=== PATIENT | female | born 1945 | race Caucasian/White ===

== ENCOUNTER → 2017-01-31 | Outpatient (CLI) | payer BC ==
[2017-01-31 16:02] LABS: Hemoglobin A1C 6.7 % (4.2-6.1)
== END ==
LOC: LABWHC1 14:52
PROVIDERS: ATTEND Family Medicine
DX: E11.9 Type 2 diabetes mellitus without complications (principal); I10 Essential (primary) hypertension
CPT/HCPCS: 36415; 83036

== ENCOUNTER → 2017-02-11 | Outpatient (CLI) | payer BC ==
--- NOTE | 2017-02-11 15:33 | US ---
EXAMINATION TYPE: US thyroid st tissue head/neck DATE OF EXAM: 02/11/2017 3:06 PM COMPARISON: See PACS thyroid ultrasound October 10, 2015. CLINICAL HISTORY: E04.2 goiter. GLAND SIZE: Right Lobe: 4.6 x 1.6 x 1.9 cm Overall Parenchyma: homogenous Left Lobe: 4.5 x 1.3 x 1.6 cm Overall Parenchyma: homogeneous Isthmus Thickness: 0.2 cm NODULES RIGHT: # of nodules measured on right: 3 1. 1.2 X 0.6 x 1.0 cm anechoic mixed nodule at the upper pole with well-defined margins. This nodu le is wider than tall and shows intranodular vascularity. Prior size: 1.2 x 0.5 x 0.9 cm 2. 1.0 X 0.6 x 0.8 cm hypoechoic solid nodule at the mid pole with well-defined margins. This nodul e is wider than tall and shows intranodular vascularity. Prior size: 1.2 x 0.5 x 0.6 cm 3. 0.7 X 0.4 x 0.5 cm hypoechoic solid nodule at the lower pole with well-defined margins. This nod ule is wider than tall and shows no intranodular vascularity. Prior size: 0.7 x 0.4 x 0.7 cm LEFT: # of nodules measured on left: 2 1. 1.5 X 0.8 x 1.1 cm hypoechoic mixed nodule at the lower pole with well-defined margins . This n odule is wider than tall and shows intranodular vascularity. Prior size: 1.5 x 0.8 x 1.0 cm 2. 0.5 X 0.2 x 0.5 cm anechoic cystic nodule at the upper pole with well-defined margins. This nodu le is wider than tall and shows no intranodular vascularity. Prior size: 0.5 x 0.3 x 0.4 cm ISTHMUS: # of nodules measured in the isthmus: 0 Bilateral neck scanned, no evidence of lymphadenopathy. Thyroid gland remains normal in size with scattered nodules redemonstrated. No new suspicious nodules are clearly seen. IMPRESSION: Findings consistent with multinodular goiter. No new suspicious greater than 1 cm solid or cystic nod ules are identified.
== END | disposition home or self-care (01) ==
LOC: RADUSWWP 14:45
PROVIDERS: ATTEND Family Medicine
DX: E04.2 Nontoxic multinodular goiter (principal)
CPT/HCPCS: 76536

== ENCOUNTER → 2017-08-27 | Outpatient (CLI) | payer BC ==
--- NOTE | 2017-08-27 16:24 | US ---
EXAMINATION TYPE: US thyroid st tissue head/neck DATE OF EXAM: 08/27/2017 COMPARISON: US 2015 CLINICAL HISTORY: E04.2 GOITER. GLAND SIZE: Right Lobe: 4.1 x 2.0 x 1.5 cm Overall Parenchyma: homogenous Left Lobe: 4.9 x 1.7 x 1.2 cm Overall Parenchyma: homogeneous Isthmus Thickness: 0.3 cm NODULES RIGHT: # of nodules measured on right: 3 largest of multiple 1. 1.3 X 1.3 x 0.7 cm hypoechoic mixed nodule at the upper pole with well-defined margins; present with microcalcifications. This nodule is wider than tall and shows intranodular vascularity. Prior size: 1.2 x 0.5 x 0.9 cm 2. 1.1 X 0.7 x 0.7 cm hypoechoic solid nodule at the mid pole with well-defined margins. This nodule is wide as is tall and shows intranodular vascularity. Prior size: 1.1 x 0.6 x 0.8 cm 3. 0.7 X 0.6 x 0.4 cm hypoechoic mixed nodule at the lower pole with well-defined margins; present w ith microcalcifications. This nodule is wider than tall and shows no intranodular vascularity. Prior size: 0.7 x 0.4 x 0.5 cm LEFT: # of nodules measured on left: 2 largest of multiple 1. 1.7 X 1.2 x 0.7 cm hypoechoic mixed nodule at the mid lower pole with well-defined margins; pres ent with microcalcifications. This nodule is wider than tall and shows intranodular vascularity. Few microcalcifications are present within this nodule. Prior size: 1.5 x 0.8 x 1.1 cm 2. 0.5 X 0.5 x 0.2 cm hypoechoic mixed nodule at the upper pole with well-defined margins; present w ith microcalcifications. This nodule is wider than tall and shows no intranodular vascularity. Prior size: 0.5 x 0.2 x 0.5 cm ISTHMUS: # of nodules measured in the isthmus: 0 Bilateral neck scanned, no evidence of lymphadenopathy. IMPRESSION: Findings again consistent with a multinodular goiter. Minimally enlarged partially cystic and partial ly solid left thyroid nodule now measuring up to 1.7 cm. Few microcalcifications are seen within this nodule and therefore percutaneous biopsy could be considered. Surveillance is recommended for the re maining nodules.
== END ==
LOC: RADUSWWP 14:24
PROVIDERS: ATTEND Family Medicine
DX: E04.2 Nontoxic multinodular goiter (principal)
CPT/HCPCS: 76536

== ENCOUNTER → 2017-09-03 | Outpatient (CLI) | payer BC ==
[2017-09-03 10:43] LABS: CH 30.8; CHCM 32.2; HCT 48.9 % (34.0-46.0); HDW 2.32; MCH 29.5 pg (25.0-35.0); MCHC 30.7 g/dL (31.0-37.0); MCV 96.1 fL (80.0-100.0); Mean Platelet Volume 7.6; RBC 5.09 m/uL (3.80-5.40); RDW 14.6 % (11.5-15.5); WBC 6.9 k/uL (3.8-10.6)
[2017-09-03 10:58] LABS: ALT 33 U/L (9-52); AST 21 U/L (14-36); Anion Gap 11 mmol/L; Blood Urea Nitrogen 12 mg/dL (7-17); Calcium 9.8 mg/dL (8.4-10.2); Carbon Dioxide 22 mmol/L (22-30); Chloride 108 mmol/L (98-107); Glucose 178 mg/dL (74-99); Non-African American GFR(MDRD) >60 (>60 ml/min/1.73 sqM); Sodium 141 mmol/L (137-145)
[2017-09-03 11:13] LABS: Hemoglobin A1C 7.1 % (4.2-6.1)
== END | disposition home or self-care (01) ==
LOC: LABWHC1 09:58
PROVIDERS: ATTEND Family Medicine
DX: E11.9 Type 2 diabetes mellitus without complications (principal); E04.2 Nontoxic multinodular goiter; I10 Essential (primary) hypertension
CPT/HCPCS: 36415; 80048; 83036; 84443; 84450; 84460; 85027

== ENCOUNTER → 2018-05-09 | Outpatient (CLI) | payer MEDICARE, OTHER ==
--- NOTE | 2018-05-12 11:49 | MM ---
Reason for exam: screening (asymptomatic). Last mammogram was performed 2 years and 7 months ago. History: Patient is postmenopausal. Family history of breast cancer in grandmother at age 58. Excisional biopsy of the right breast, May 15, 2000. 2 cyst aspirations of the left breast. 2 cyst aspirations of the right breast. Physical Findings: A clinical breast exam by your physician is recommended on an annual basis and results should be correlated with mammographic findings. MG 3D Screening Mammo W/Cad Bilateral CC and MLO view(s) were taken. Prior study comparison: October 10, 2015, bilateral MG screening mammo w CAD. November 24, 2013, bilateral digital screening mammo w/CAD. There are scattered fibroglandular densities. No significant changes when compared with prior studies. ASSESSMENT: Benign, BI-RAD 2 RECOMMENDATION: Routine screening mammogram of both breasts in 1 year.
== END | disposition home or self-care (01) ==
LOC: RADMAMWWP 13:26
PROVIDERS: ATTEND Family Medicine
DX: Z12.31 Encounter for screening mammogram for malignant neoplasm of breast (principal)
CPT/HCPCS: 77063; 77067

== ENCOUNTER → 2018-07-18 | Outpatient (CLI) | payer MEDICARE, OTHER ==
[2018-07-18 16:22] LABS: HCT 42.2 % (34.0-46.0); HGB 13.4 gm/dL (11.4-16.0); MCH 30.6 pg (25.0-35.0); MCHC 31.8 g/dL (31.0-37.0); MCV 96.4 fL (80.0-100.0); Mean Platelet Volume 6.6; Platelet Count 371 k/uL (150-450); RBC 4.38 m/uL (3.80-5.40); RDW 13.8 % (11.5-15.5); WBC 9.2 k/uL (3.8-10.6)
[2018-07-18 16:34] LABS: Calcium 9.6 mg/dL (8.4-10.2); Potassium 4.4 mmol/L (3.5-5.1)
[2018-07-19 04:41] LABS: Hemoglobin A1C 6.9 % (4.0-6.0)
--- NOTE | 2018-07-21 09:58 | USB ---
Reason for exam: clinical finding. History: Patient is postmenopausal. Family history of breast cancer in grandmother at age 58. Excisional biopsy of the right breast, May 15, 2000. 2 cyst aspirations of the left breast. 2 cyst aspirations of the right breast. Indicated problem(s): palpable abnormality in the left breast. Physical Findings: Nurse Summary: 1cm nodule in the left breast at nipple, firm (nurse dw). US Breast LT Left complete breast ultrasound includes all four quadrants, the retroareolar region and axilla. Finding demonstrates a 0.3 x 0.4 x 0.1cm oval, calcification, hyperechoic lesion at 2 o'clock and duct ectasia at the posterior nipple. These results were verbally communicated with the patient and result sheet given to the patient on 07/18/18. ASSESSMENT: Benign, BI-RAD 2 RECOMMENDATION: Return to routine screening mammogram schedule for both breasts. Back on schedule. Manage patient on a clinical basis.
== END | disposition home or self-care (01) ==
LOC: RADUSWWP 14:55
PROVIDERS: ATTEND Family Medicine
DX: N64.59 Other signs and symptoms in breast (principal); E78.5 Hyperlipidemia, unspecified; E11.9 Type 2 diabetes mellitus without complications
CPT/HCPCS: 36415; 80048; 83036; 84450; 84460; 85027

== ENCOUNTER → 2018-10-28 | Outpatient (CLI) | payer MEDICARE, OTHER ==
--- NOTE | 2018-10-28 23:00 | US ---
EXAMINATION TYPE: US thyroid st tissue head/neck DATE OF EXAM: 10/28/2018 COMPARISON: Most recent thyroid ultrasound August 27, 2017 CLINICAL HISTORY: E04.2 Nontoxic multinodular goiter. GLAND SIZE: Right Lobe: 4.5 x 1.5 x 1.9 cm Overall Parenchyma: heterogenous Left Lobe: 4.8 x 1.4 x 1.6 cm Overall Parenchyma: heterogeneous Isthmus Thickness: 0.3 cm NODULES RIGHT: # of nodules measured on right: 3 1. 1.3 x X 1.3 x 0.7 cm hypoechoic cystic nodule at the upper pole with well-defined margins. Thi s nodule is wider than tall and shows no intranodular vascularity. Prior size: 1.3 x 1.3 x 0.7 cm 2. 1.1 X 0.7 x 0.7 cm hypoechoic solid nodule at the mid pole with well-defined margins. This nodul e is wider than tall and shows intranodular vascularity. Prior size: 1.1 x 0.7 x 0.7 cm 3. 0.7 X 0.4 x 0.5 cm isoechoic mixed nodule at the lower pole with well-defined margins. This nodu le is wider than tall and shows no intranodular vascularity. Prior size: 0.7 x 0.6 x 0.4 cm LEFT: # of nodules measured on left: 2 1. 1.7 X 0.8 x1.2 cm hypoechoic mixed nodule at the mid pole with well-defined margins. This nodule is wider than tall and shows intranodular vascularity. Prior size: 1.7 x 0.7 x 1.2 cm 2. 0.5 X 0.2 x 0.4 cm anechoic cystic nodule at the upper pole with well-defined margins . This nod ule is taller than wide and shows no intranodular vascularity. Prior size: 0.5 x 0.2 x 0.5 cm ISTHMUS: # of nodules measured in the isthmus: 0 Bilateral neck scanned, no evidence of lymphadenopathy. Redemonstration of heterogeneous multinodular normal-sized thyroid without new nodules identified IMPRESSION: Overall stable findings, no new suspicious nodules are seen.
== END ==
LOC: RADUSWWP 16:06
PROVIDERS: ATTEND Internal Medicine Endocrinology, Diabetes & Metabolism
DX: E04.2 Nontoxic multinodular goiter (principal)
CPT/HCPCS: 76536

== ENCOUNTER → 2018-12-25 | Outpatient (CLI) | payer MEDICARE, OTHER ==
[2018-12-25 14:02] LABS: HGB 14.5 gm/dL (11.4-16.0); MCH 31.5 pg (25.0-35.0); MCHC 32.2 g/dL (31.0-37.0); MCV 97.9 fL (80.0-100.0); Mean Platelet Volume 6.9; Platelet Count 390 k/uL (150-450); RDW 13.2 % (11.5-15.5); WBC 11.2 k/uL (3.8-10.6)
[2018-12-25 19:54] LABS: Anion Gap 10.3 mmol/L (4.00-12.00); Carbon Dioxide 25.7 mmol/L (21.6-31.8)
[2018-12-25 22:12] LABS: Hemoglobin A1C 6.7 % (4.0-6.0)
== END | disposition home or self-care (01) ==
LOC: LABWHC1 12:51
PROVIDERS: ATTEND Family Medicine
DX: E78.5 Hyperlipidemia, unspecified (principal); E11.9 Type 2 diabetes mellitus without complications; E04.2 Nontoxic multinodular goiter
CPT/HCPCS: 36415; 80048; 83036; 84439; 84443; 84450; 84460; 85027

== ENCOUNTER → 2019-01-13 | Outpatient (CLI) | payer MEDICARE, OTHER ==
--- NOTE | 2019-01-13 11:18 | US ---
EXAMINATION TYPE: US duplex aorta DATE OF EXAM: 01/13/2019 COMPARISON: NONE CLINICAL HISTORY: 73-year-old female Z82.49 family history of ischemic heart disease. TECHNIQUE: Multiple sonographic images of the abdominal aorta are obtained. FINDINGS: EXAM MEASUREMENTS: Abdominal Aorta: Proximal: 1.5cm Mid: 1.5cm Distal: 1.4cm Bifurcation: Right: 1.0cm Left: 1.1cm Atherosclerotic changes throughout. IMPRESSION: No sonographic evidence for AAA.
== END ==
LOC: RADUSWWP 08:17
PROVIDERS: ATTEND Family Medicine
DX: Z13.6 Encounter for screening for cardiovascular disorders (principal); Z82.49 Family history of ischemic heart disease and other diseases of the circulatory system
CPT/HCPCS: 93979

== ENCOUNTER → 2019-03-26 | Outpatient (CLI) | payer MEDICARE, OTHER ==
[2019-03-26 16:23] LABS: Basophils # (A) 0.1 k/uL (0-0.2); Basophils % (A) 1 %; Eosinophils # (A) 0.2 k/uL (0-0.7); Eosinophils % (A) 2 %; HCT 44.6 % (34.0-46.0); HGB 14.2 gm/dL (11.4-16.0); Lymphocytes % (A) 31 %; MCH 30.6 pg (25.0-35.0); MCHC 31.8 g/dL (31.0-37.0); MCV 96.1 fL (80.0-100.0); Mean Platelet Volume 6.8; Monocytes # (A) 0.5 k/uL (0-1.0); Monocytes % (A) 5 %; Neutrophils # (A) 5.6 k/uL (1.3-7.7); Neutrophils % (A) 58 %; Platelet Count 418 k/uL (150-450); RBC 4.64 m/uL (3.80-5.40); RDW 12.8 % (11.5-15.5); WBC 9.6 k/uL (3.8-10.6)
[2019-03-26 23:31] LABS: Anion Gap 7.9 mmol/L (4.00-12.00); Calcium 9.8 mg/dL (8.7-10.3); Carbon Dioxide 25.1 mmol/L (21.6-31.8); Potassium 4.4 mmol/L (3.5-5.5)
[2019-03-27 02:31] LABS: Hemoglobin A1C 6.8 % (4.0-6.0)
== END | disposition home or self-care (01) ==
LOC: LABWHC1 15:29
PROVIDERS: ATTEND Family Medicine
DX: E78.5 Hyperlipidemia, unspecified (principal); E11.9 Type 2 diabetes mellitus without complications
CPT/HCPCS: 36415; 80048; 83036; 84450; 84460; 85025

== ENCOUNTER → 2019-04-03 | Outpatient (CLI) | payer MEDICARE, OTHER ==
[2019-04-03 23:51] LABS: Anion Gap 8.1 mmol/L (4.00-12.00); Calcium 9.4 mg/dL (8.7-10.3); Carbon Dioxide 23.9 mmol/L (21.6-31.8); Potassium 4.5 mmol/L (3.5-5.5)
== END | disposition home or self-care (01) ==
LOC: LABWHC1 15:41
PROVIDERS: ATTEND Family Medicine
DX: E78.5 Hyperlipidemia, unspecified (principal); R94.4 Abnormal results of kidney function studies; E11.9 Type 2 diabetes mellitus without complications
CPT/HCPCS: 36415; 80048

== ENCOUNTER → 2019-04-10 | Outpatient (CLI) | payer MEDICARE, OTHER ==
--- NOTE | 2019-04-10 13:23 | US ---
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 Stenosis EXAM MEASUREMENTS: RIGHT: Peak Systolic Velocity (PSV) cm/sec ----- Right CCA: 54.6 ----- Right ICA: 95.3 ----- Right ECA: 91.4 ICA/CCA ratio: 1.7 RIGHT: End Diastole cm/sec ----- Right CCA: 18.0 ----- Right ICA: 34.4 ----- Right ECA: 22.8 LEFT: Peak Systolic Velocity (PSV) cm/sec ----- Left CCA: 78.2 ----- Left ICA: 89.7 ----- Left ECA: 82.0 ICA/CCA ratio: 1.1 LEFT: End Diastole cm/sec ----- Left CCA: 21.5 ----- Left ICA: 30.3 ----- Left ECA: 14.9 VERTEBRALS (direction of flow): Right Vertebral: Antegrade Left Vertebral: Antegrade Rhythm: Normal Keith scale images demonstrate mild peripheral plaque at bilateral carotid bulbs but the velocity paula urements and ratios in the visualized portion of both internal carotid arteries remain within normal limits. IMPRESSION: No hemodynamically significant stenosis is seen in either internal carotid artery. Criteria for Assigning % of Stenosis / Diameter reduction (Estimation based on the indirect measurements of the internal carotid artery velocities (ICA PSV). 1. Normal (no stenosis)=ICA PSV < 125 cm/s: ratio < 2.0: ICA EDV<40 cm/s. 2. Less than 50% stenosis=ICA PSV < 125 cm/s: ratio < 2.0: ICA EDV<40 cm/s. 3. 50 to 69% stenosis=ICA PSV of 125 to 230 cm/s: ration 2.0 ? 4.0: ICA EDV 40-100 cm/s. 4. Greater than 70% stenosis to near occlusion= ICA PSV > 230 cm/s: ratio > 4.0: ICA EDV > 100 cm/s. 5. Near occlusion= ICA PSV velocities may be low or undetectable: variable ratio and ICA EDV. 6. Total occlusion=unable to detect flow.
== END | disposition home or self-care (01) ==
LOC: RADUSWWP 12:00
PROVIDERS: ATTEND Family Medicine
DX: I65.23 Occlusion and stenosis of bilateral carotid arteries (principal); M79.662 Pain in left lower leg
CPT/HCPCS: 93880; 93922

== ENCOUNTER → 2019-09-29 | Outpatient (CLI) | payer MEDICARE, OTHER ==
[2019-09-29 13:48] LABS: Basophils # (A) 0.1 k/uL (0-0.2); Basophils % (A) 1 %; Eosinophils # (A) 0.1 k/uL (0-0.7); Eosinophils % (A) 1 %; HCT 39.6 % (34.0-46.0); HGB 12.4 gm/dL (11.4-16.0); Hypochromasia Slight; Lymphocytes # (A) 2.7 k/uL (1.0-4.8); Lymphocytes % (A) 28 %; MCH 28.5 pg (25.0-35.0); MCHC 31.3 g/dL (31.0-37.0); MCV 91.2 fL (80.0-100.0); Mean Platelet Volume 5.8; Monocytes # (A) 0.5 k/uL (0-1.0); Monocytes % (A) 6 %; Neutrophils # (A) 5.8 k/uL (1.3-7.7); Neutrophils % (A) 61 %; Platelet Count 516 k/uL (150-450); RBC 4.34 m/uL (3.80-5.40); RDW 13.2 % (11.5-15.5); WBC 9.7 k/uL (3.8-10.6)
[2019-09-29 18:30] LABS: Anion Gap 8.3 mmol/L (4.00-12.00); BUN/Creat Ratio 16.67 Ratio (12.00-20.00); Calcium 9.7 mg/dL (8.7-10.3); Carbon Dioxide 25.7 mmol/L (21.6-31.8); Non-African American GFR(CKD) 63.9 (60.0-200.0); Potassium 4.7 mmol/L (3.5-5.5)
[2019-09-29 20:30] LABS: Hemoglobin A1C 7.1 % (4.0-6.0)
== END | disposition home or self-care (01) ==
LOC: LABWHC1 12:48
PROVIDERS: ATTEND Family Medicine
DX: E11.9 Type 2 diabetes mellitus without complications (principal); E78.5 Hyperlipidemia, unspecified
CPT/HCPCS: 36415; 80048; 83036; 84450; 84460; 85025

== ENCOUNTER → 2019-10-12 | Outpatient (CLI) | payer MEDICARE, OTHER ==
[2019-10-12 13:30] LABS: Basophils # (A) 0.1 k/uL (0-0.2); Basophils % (A) 1 %; Eosinophils # (A) 0.2 k/uL (0-0.7); Eosinophils % (A) 2 %; HCT 39.7 % (34.0-46.0); HGB 12.7 gm/dL (11.4-16.0); Hypochromasia Slight; Lymphocytes # (A) 2.2 k/uL (1.0-4.8); Lymphocytes % (A) 24 %; MCH 28.7 pg (25.0-35.0); MCHC 32.1 g/dL (31.0-37.0); MCV 89.4 fL (80.0-100.0); Mean Platelet Volume 5.8; Monocytes # (A) 0.4 k/uL (0-1.0); Monocytes % (A) 4 %; Neutrophils # (A) 5.9 k/uL (1.3-7.7); Neutrophils % (A) 65 %; Platelet Count 503 k/uL (150-450); RBC 4.44 m/uL (3.80-5.40); RDW 13.4 % (11.5-15.5)
== END ==
LOC: LABWHC1 12:19
PROVIDERS: ATTEND Family Medicine
DX: E78.5 Hyperlipidemia, unspecified (principal)
CPT/HCPCS: 36415; 85025

== ENCOUNTER → 2019-10-29 | Outpatient (CLI) | payer MEDICARE, OTHER ==
[2019-10-29 17:29] LABS: Basophils # (A) 0.1 k/uL (0-0.2); Basophils % (A) 1 %; Eosinophils # (A) 0.2 k/uL (0-0.7); Eosinophils % (A) 2 %; HCT 39.2 % (34.0-46.0); HGB 12.1 gm/dL (11.4-16.0); Hypochromasia Moderate; Lymphocytes # (A) 3.5 k/uL (1.0-4.8); Lymphocytes % (A) 32 %; MCHC 30.9 g/dL (31.0-37.0); MCV 90.8 fL (80.0-100.0); Mean Platelet Volume 8.1; Monocytes # (A) 0.7 k/uL (0-1.0); Monocytes % (A) 6 %; Neutrophils # (A) 6.2 k/uL (1.3-7.7); Neutrophils % (A) 56 %; Platelet Count 467 k/uL (150-450); RBC 4.31 m/uL (3.80-5.40); RDW 13.6 % (11.5-15.5)
== END | disposition home or self-care (01) ==
LOC: LABWHC1 15:21
PROVIDERS: ATTEND Family Medicine
DX: E78.5 Hyperlipidemia, unspecified (principal)
CPT/HCPCS: 36415; 85025

== ENCOUNTER → 2020-01-21 | Outpatient (CLI) | payer MEDICARE, OTHER ==
[2020-01-21 12:51] LABS: HGB 12.4 gm/dL (11.4-16.0); Hypochromasia Moderate; MCH 26.7 pg (25.0-35.0); MCV 86.2 fL (80.0-100.0); Mean Platelet Volume 7.6; Platelet Count 543 k/uL (150-450); RBC 4.64 m/uL (3.80-5.40); RDW 14.8 % (11.5-15.5); WBC 8.9 k/uL (3.8-10.6)
[2020-01-21 18:59] LABS: African American GFR (CKD) 84.8 (60.0-200.0); Albumin 4.4 g/dL (3.80-4.90); Albumin/Globulin Ratio 2.2 (1.60-3.17); Anion Gap 6.6 mmol/L (4.00-12.00); BUN/Creat Ratio 21.25 Ratio (12.00-20.00); Calcium 9.5 mg/dL (8.7-10.3); Carbon Dioxide 24.4 mmol/L (21.6-31.8); Chol/HDL Ratio 2.39; Non-African American GFR(CKD) 73.1 (60.0-200.0); Potassium 4.7 mmol/L (3.5-5.5); Total Bilirubin 0.4 mg/dL (0.2-1.2); Total Protein 6.4 g/dL (6.2-8.2)
[2020-01-21 20:03] LABS: Hemoglobin A1C 7.3 % (4.0-6.0)
[2020-01-22 04:23] LABS: Urine Creatinine 265.9 mg/dL
== END ==
LOC: LABWHC1 11:00
PROVIDERS: ATTEND Family Medicine
DX: Z00.01 Encounter for general adult medical examination with abnormal findings (principal); E04.2 Nontoxic multinodular goiter; E11.9 Type 2 diabetes mellitus without complications
CPT/HCPCS: 36415; 80053; 80061; 82043; 82570; 83036; 84439; 84443; 85027

== ENCOUNTER → 2020-08-22 | Outpatient (CLI) | payer MEDICARE, OTHER ==
--- NOTE | 2020-08-22 14:18 | CT ---
EXAMINATION TYPE: CT lumbar spine wo con DATE OF EXAM: 08/22/2020 1:54 PM COMPARISON: CT scan 11/01/2011 HISTORY: Low back pain CT DLP: 451.2 mGycm Automated exposure control for dose reduction was used. Unenhanced CT of the lumbar spine was performed. Bone and soft tissue window settings are submitted as well as coronal and sagittal reconstructions. Subsegmental changes involving the right lung base n oted. Surgical clips in the gallbladder fossa. Atherosclerotic change aorta. Nonobstructing 2 mm left renal calculus. Hypodensity within the right kidney is too small to characterize. Changes of COPD wi th bibasilar atelectasis suspected. Hypodensities within the dome of the liver with an adjacent calci fication measures 12 Hounsfield units correlate for hepatic cyst. L1-L2: Moderate degenerative disc disease L-1-L2. Circumferential disc bulging with slight retrolisth esis of 2 mm of L1 relative to L2. Neural foramina remain patent. L2-L3: No disc herniation or canal stenosis. Mild circumferential disc bulging. No foraminal encroach ment. L3-L4: No disc herniation. Mild circumferential disc bulging. No foraminal encroachment. L4-L5: Marked facet arthropathy. Circumferential disc bulging and mild effacement of thecal sac and m ild bilateral foraminal encroachment. Grade 1 anterolisthesis. L5-S1: Postsurgical changes artifact obscures the spinal canal. No obvious disc herniation. IMPRESSION:. 1. Limited exam due to artifact at the postsurgical level L5-S1. There is mild soft tissue fullness o n axial image 66 within the left lateral recess which could be correlated with MRI given the limitati on of today's exam to determine if this is related to the nerve root or possibly disc material.. 2. Multilevel degenerative disc disease and hypertrophic changes with facet arthropathy particularly noted at L4-5 and a grade 1 anterolisthesis. There is disc bulging at L4-L5 with mild effacement of t hecal sac 3. Diffuse disc bulging L1-L2 with retrolisthesis of L1 relative to L2. 4. Disc bulging L2-3 and L3-4 with mild effacement of thecal sac. 5. Nonobstructing punctate left renal calculus.
== END | disposition home or self-care (01) ==
LOC: RADCTMAIN 13:29
PROVIDERS: ATTEND Orthopaedic Surgery Orthopaedic Surgery of the Spine
DX: M51.16 Intervertebral disc disorders with radiculopathy, lumbar region (principal); M43.16 Spondylolisthesis, lumbar region; M47.26 Other spondylosis with radiculopathy, lumbar region; Z98.1 Arthrodesis status
CPT/HCPCS: 72131

== ENCOUNTER → 2021-03-10 | Outpatient (CLI) | payer MEDICARE, OTHER ==
[2021-03-10 13:47] LABS: Appearance,Urine Clear (Clear); Bacteria,Urine Occasional /hpf; Bilirubin,Urine Negative (Negative); Blood,Urine Trace (Negative); Color,Urine Yellow; Glucose,Urine (UA) 2+ (Negative); Hyaline Casts,Urine 8 /lpf (0-2); Ketones,Urine Trace (Negative); Leukocyte Esterase,Urine Large (Negative); Mucus,Urine Many /hpf; Nitrite,Urine Negative (Negative); Protein,Urine 2+ (Negative); RBC,Urine 6 /hpf (0-5); Specific Gravity,Urine 1.032 (1.001-1.035); Squamous Epithelial Cell,Urine 6 /hpf (0-4); WBC,Urine 30 /hpf (0-5)
[2021-03-11 00:32] LABS: Hemoglobin A1C 7.2 % (4.0-6.0)
[2021-03-11 03:24] LABS: HCT 46.6 % (37.2-46.3); HGB 14.7 g/dL (12.0-15.0); MCH 30.6 pg (27.0-32.0); MCHC 31.5 g/dL (32.0-37.0); MCV 97.1 fL (80.0-97.0); Mean Platelet Volume 10.2 fL (9.5-12.2); Platelet Count 439 X 10*3/uL (140-440); RDW 13.1 % (11.5-14.5); WBC 9.25 X 10*3/uL (4.50-10.00)
[2021-03-11 04:20] LABS: African American GFR (CKD) 98.9 (60.0-200.0); Albumin 4.8 g/dL (3.80-4.90); Albumin/Globulin Ratio 2.4 (1.60-3.17); Anion Gap 8.5 mmol/L (4.00-12.00); BUN/Creat Ratio 18.57 Ratio (12.00-20.00); Calcium 10.1 mg/dL (8.7-10.3); Carbon Dioxide 24.5 mmol/L (21.6-31.8); Chol/HDL Ratio 3.04; LDL Cholesterol,Calculated 68.8 mg/dL (0.0-131.0); Non-African American GFR(CKD) 85.4 (60.0-200.0); Potassium 5.3 mmol/L (3.5-5.5); Total Bilirubin 0.4 mg/dL (0.2-1.2); Total Protein 6.8 g/dL (6.2-8.2); VLDL Calculation 29.2 mg/dL (5.00-40.00)
[2021-03-11 05:50] LABS: Urine Creatinine 276.8 mg/dL
== END | disposition home or self-care (01) ==
LOC: LABWHC1 12:43
PROVIDERS: ATTEND Family Medicine
DX: Z00.01 Encounter for general adult medical examination with abnormal findings (principal); E11.9 Type 2 diabetes mellitus without complications
CPT/HCPCS: 36415; 80053; 80061; 81001; 82043; 82570; 83036; 84443; 85027

== ENCOUNTER → 2021-08-25 | Outpatient (CLI) | payer MEDICARE, OTHER ==
[2021-08-25 15:33] LABS: Carbon Dioxide 27 mmol/L (22-30)
[2021-08-25 15:36] LABS: African American GFR (CKD) >90 (>60 ml/min/1.73 sqM); Anion Gap 10 mmol/L; Blood Urea Nitrogen 12 mg/dL (7-17); Calcium 10.1 mg/dL (8.4-10.2); Chloride 101 mmol/L (98-107); Glucose 177 mg/dL (74-99); Non-African American GFR(CKD) 87 (>60 ml/min/1.73 sqM); Potassium 4.2 mmol/L (3.5-5.1); Sodium 138 mmol/L (137-145)
--- NOTE | 2021-08-25 16:23 | CT ---
EXAMINATION TYPE: CT chest w con DATE OF EXAM: 08/25/2021 COMPARISON: None HISTORY: Abnormal CXR. lung nodule CT DLP: 472 mGycm, Automated exposure control for dose reduction was used. CONTRAST: Performed injected with 100 mL of Isovue 300. TECHNIQUE: Axial images were obtained at 5 mm thick sections. Reconstructed images are reviewed on [facility] computer in the coronal plane. FINDINGS: Portion of the thyroid visualized is normal. There is a spiculated mass at the left anterior medial apex measuring 4.1 cm in diameter. This extend s to the aortopulmonic window level and left hilum. Note is made of enlarged lymphadenopathy within t pretracheal space measuring 2.0 cm. Some right hilar adenopathy measuring 1.2 cm is present. Small amount of pleural thickening or density may extend to the anterior left mid lung measuring 1.7 cm. S eries 3 image 32. Edematous changes are present Multiple nodules are present scattered to the bilateral lungs. The largest within the azygos esophage al recess measuring 1.0 cm. A posterior lateral right lung base nodules 1.0 cm. There are scattered s maller nodules bilaterally. The ascending aorta diameter at the level of the main pulmonary artery is 3.6 cm. The main pulmonary artery diameter at the bifurcation is 2.[address] sections are obtained through the upper abdomen. Appears to be some biliary dilatation wit hin the extrahepatic biliary ducts. Hepatic cysts may be present near the ligamentum teres. Vascular calcifications within the abdominal aorta. IMPRESSIONS: 1. Medial left apical mediastinal mass extending to the left hilum. Enlarged lymphadenopathy is prese nt within the mediastinum. Multiple bilateral pulmonary nodules are present. Findings are suspicious for neoplasm with metastatic disease. PET/CT recommended for additional workup.
== END | disposition home or self-care (01) ==
LOC: RADCTMAIN 14:47
PROVIDERS: ATTEND Family Medicine
DX: R59.1 Generalized enlarged lymph nodes (principal); R94.4 Abnormal results of kidney function studies; R91.8 Other nonspecific abnormal finding of lung field
CPT/HCPCS: 80048; 71260; 36415; Q9967

== ENCOUNTER → 2021-09-08 | Outpatient (CLI) | payer MEDICARE, OTHER | END | disposition home or self-care (01) | LOC: RADPETMAIN 11:19 | PROVIDERS: ATTEND Family Medicine | DX: Z53.9 Procedure and treatment not carried out, unspecified reason (principal) ==

== ENCOUNTER 2021-09-19 13:07 | Day surgery (SDC) | payer MEDICARE, OTHER ==
[2021-09-15 15:38] VITALS: BMI 19.9
[~2021-09-19 13:07] MED LIST: ALBUTEROL NEB (CONC) 2.5 MG/0.5 ML INHALATION ONE; LACTATED RINGERS 1,000 ML IV SCH; LIDOCAINE 2% (PF) 20 MG/ML 5 ML VIAL INHALATION ONE; LIDOCAINE VISCOUS 300 MG/15 ML CUP MUCOUS MEM ONE
[2021-09-19 13:51] LABS: Glucose,Whole Blood 165 mg/dL (75-99)
[2021-09-19] MEDS ORDERED: ROCURONIUM 10 MG/ML (5 ML VIAL) IV ONE (14:23)
[2021-09-19] MEDS ORDERED: PROPOFOL 10 MG/ML 20 ML VIAL IV ONE (14:23)
[2021-09-19] MEDS ORDERED: fentaNYL (PF) 50 MCG/ML 2 ML AMP ONE (14:23)
[2021-09-19] MEDS ORDERED: ONDANSETRON 4 MG/2 ML VIAL ONE (14:23)
[2021-09-19] MEDS ORDERED: LABETALOL 5 MG/ML VIAL MDV ONE (14:23)
[2021-09-19] MEDS ORDERED: diphenhydrAMINE 50 MG/ML 1 ML VIAL ONE (14:23)
[2021-09-19] MEDS ORDERED: LIDOCAINE 1% INJ 10MG/ML (20 ML MDV) ONE (14:23)
[2021-09-19] MEDS ORDERED: MIDAZOLAM 2 MG/2 ML VIAL ONE (14:23)
--- NOTE | 2021-09-19 15:26 | P.PCN ---
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 The procedure was done under general anesthesia. Note that the patient a mediastinal lymphadenopathy, left hilar mass, left upper lobe mass with a mediastinal extension and the patient was suffering from chronic hoarseness related to vocal cord paralysis, unilateral involving the left side. The procedure was done to establish final tissue diagnosis This procedure was done under general anesthesia. Anesthetic agents was given by the anesthesia team at the bedside and the patient was intubated by anesthesia with a #8 orotracheal tube. Following that, the flexible bronchoscope was introduced and orotracheal tube and an airway inspection was done. The Dickson the distal trachea was within normal limits. A summation the right side including the right mainstem bronchus, right upper lobe bronchus, bronchus intermedius and right lower lobe bronchus and the various 10 segments of the right lung was visualized. There was some limited respiratory secretions and the secretions were suctioned out without any major difficulties. The bronchoscope was then moved to the left side and left mainstem bronchus was patent. Left lower lobe bronchus patent and the various segments of the left lower lobe were also within normal limits. bronchoscope was then moved to the left upper lobe. The lingular segment was stable involving the anterior and posterior segments. At the level of the apical posterior and anterior segment, the orifice of the abdomen was occluded by extrinsic compression and endobronchial tumor extending from the mediastinum. The apical posterior segment was very much occluded and there was complete occlusion of airway orifice. The bronchial mucosa was erythematous. Friable irregular surface of the tumor was visualized and under direct visualization, the bronchial biopsies of the left upper lobe apical mass was done. Multiple biopsies were obtained. Following that, endobronchial brushings of the left upper lobe mass was done. After that, I performed a lavage of the left upper lobe without a total of 100 the fluid was infused in 50s was suctioned back without any major difficulties. There are several slightly bloody. Following that, the endobronchial ultrasound was introduced and mediastinal lymph nodes were inspected. Inspection of the mediastinal lymph nodes revealed a station 4R lymph node measuring 23 x 20 mm in size. Station 7 lymph node measuring 7.8 cm in size. 10 R lymph node was too small to measure. 11 are as and 11 RI lymph nodes were not identified. Examination of the 4 L lymph node and 10 lymph nodes were also small and there were less than 5 mm. At this point, under direct visualization using the endobronchial ultrasound, transbronchial needle aspirate of the station 4R lymph node was done. A total of 4 passes were obtained using a 22-gauge histology needle. Adequacy of the symptoms were confirmed by pathology bedside. No endobronchial bleeding was encountered. Regular suctioning was done. Bronchoscope was removed and the patient was extubated and following that the patient was transferred recovery in stable condition.
[2021-09-19 15:53] VITALS: RESP 16; TEMP 98
--- NOTE | 2021-09-19 16:04 | XR ---
EXAMINATION TYPE: XR chest 1V portable DATE OF EXAM: 09/19/2021 COMPARISON: Chest x-ray 04/01/[address] 08/25/2021 HISTORY: Status post bronchoscopy TECHNIQUE: Single frontal view of the chest is obtained. FINDINGS: The mass in the left hilar region, abnormal attenuation in the left upper lobe is noted as on CT. There is no evident pneumothorax. Cardiac mediastinal silhouette is stable accounting for dif ferences in technique. There are overlying artifacts. IMPRESSION: No evident complication status post bronchoscopy.
[2021-09-19 16:45] VITALS: BP 147/76; PULSE 72
== END 2021-09-19 16:55 | disposition home or self-care (01) ==
LOC: ORWHC2ENDO 13:07
PROVIDERS: ATTEND Internal Medicine Critical Care Medicine
DX: J38.01 Paralysis of vocal cords and larynx, unilateral (principal); E11.9 Type 2 diabetes mellitus without complications; E78.5 Hyperlipidemia, unspecified; F41.9 Anxiety disorder, unspecified; I10 Essential (primary) hypertension; K21.9 Gastro-esophageal reflux disease without esophagitis; I73.00 Raynaud's syndrome without gangrene; Z80.1 Family history of malignant neoplasm of trachea, bronchus and lung; Z82.49 Family history of ischemic heart disease and other diseases of the circulatory system; Z87.891 Personal history of nicotine dependence; Z98.891 History of uterine scar from previous surgery; Z90.49 Acquired absence of other specified parts of digestive tract; Z87.442 Personal history of urinary calculi; Z98.890 Other specified postprocedural states; Z79.84 Long term (current) use of oral hypoglycemic drugs; Z79.891 Long term (current) use of opiate analgesic; Z79.899 Other long term (current) drug therapy; Z88.5 Allergy status to narcotic agent; Z91.09 Other allergy status, other than to drugs and biological substances
CPT/HCPCS: 88104; 88108; 88305; 88173; 88342; 88341; 71045; 31625; 31623; 31624; 31652; J2250; J1200; J2405; J2001; J3010; J2704

== ENCOUNTER → 2021-11-06 | Outpatient (CLI) | payer MEDICARE, OTHER ==
[2021-11-06 16:09] LABS: Basophils # (A) 0.1 k/uL (0-0.2); Basophils % (A) 1 %; Eosinophils # (A) 0.3 k/uL (0-0.7); Eosinophils % (A) 2 %; HCT 48.9 % (34.0-46.0); HGB 15.5 gm/dL (11.4-16.0); Lymphocytes # (A) 2.7 k/uL (1.0-4.8); Lymphocytes % (A) 25 %; MCH 29.8 pg (25.0-35.0); MCHC 31.6 g/dL (31.0-37.0); MCV 94.2 fL (80.0-100.0); Mean Platelet Volume 7.3; Monocytes # (A) 0.6 k/uL (0-1.0); Monocytes % (A) 6 %; Neutrophils # (A) 6.6 k/uL (1.3-7.7); Neutrophils % (A) 63 %; Platelet Count 588 k/uL (150-450); RDW 13.1 % (11.5-15.5); WBC 10.5 k/uL (3.8-10.6)
[2021-11-06 16:44] LABS: ALT 14 U/L (4-34); AST 22 U/L (14-36); African American GFR (CKD) >90 (>60 ml/min/1.73 sqM); Albumin 4.5 g/dL (3.5-5.0); Alkaline Phosphatase 84 U/L (38-126); Anion Gap 11 mmol/L; Blood Urea Nitrogen 19 mg/dL (7-17); Calcium 10.3 mg/dL (8.4-10.2); Carbon Dioxide 26 mmol/L (22-30); Chloride 100 mmol/L (98-107); Glucose 258 mg/dL (74-99); Non-African American GFR(CKD) 88 (>60 ml/min/1.73 sqM); Potassium 4.5 mmol/L (3.5-5.1); Sodium 137 mmol/L (137-145); Total Bilirubin 0.3 mg/dL (0.2-1.3); Total Protein 7.7 g/dL (6.3-8.2)
[2021-11-06 16:48] LABS: T4, Free (Free Thyroxine) 1.32 ng/dL (0.78-2.19)
--- NOTE | 2021-11-07 03:37 | MR ---
EXAMINATION TYPE: MR brain wo/w con DATE OF EXAM: 11/06/2021 COMPARISON: 06/15/2011 HISTORY: Lung cancer. CONTRAST: Standard multiplanar, multisequence MRI departmental protocol images were obtained without contrast a nd with 6 mL intravenous Gadavist gadolinium contrast. There is some cerebral cortical atrophy. There is no mass effect nor midline shift. There is moderate patchy increased signal in the periventricular white matter in both cerebral hemispheres. There is c oalescent areas that measure up to 2 cm. There is also increased signal bilaterally in the andres that measures 8 mm. Cerebellum is intact. Sella turcica is intact. There is some thinning of the corpus ca llosum. The contrast images show normal enhancement of the venous sinuses. There is no pathologic intracrania l enhancement. IMPRESSION: Cerebral atrophy. Extensive white matter signal changes probably related to microvascular ischemia th at has progressed compared to old exam. Demyelinating disease not excluded. There are some chronic fr ontal and ethmoid sinusitis that appears similar to old exam. No evidence of intracranial metastatic disease. There is progression of cerebral atrophy compared to old exam.
== END | disposition home or self-care (01) ==
LOC: RADMRIMAIN 15:18
PROVIDERS: ATTEND Internal Medicine Hematology & Oncology
DX: C34.12 Malignant neoplasm of upper lobe, left bronchus or lung (principal)
CPT/HCPCS: 84439; 84481; 80053; 82533; 84443; 85025; 70553; A9585

== ENCOUNTER 2021-12-06 08:40 | Day surgery (SDC) | payer MEDICARE, OTHER ==
[2021-11-29 14:24] VITALS: BMI 20.5
[~2021-12-06 08:40] MED LIST changes: -ALBUTEROL NEB (CONC) 2.5 MG/0.5 ML INHALATION ONE; +DEXAMETHASONE SOD PHOSPHATE 4 MG/ML 1 ML VIAL IV PRN; +FAMOTIDINE 20 MG/2 ML VIAL IV PRN; -LIDOCAINE 2% (PF) 20 MG/ML 5 ML VIAL INHALATION ONE; -LIDOCAINE VISCOUS 300 MG/15 ML CUP MUCOUS MEM ONE; +ONDANSETRON 4 MG/2 ML VIAL IVP PRN
[2021-12-06 09:37] LABS: Glucose,Whole Blood 252 mg/dL (75-99)
[2021-12-06] MEDS ORDERED: INSULIN ASPART (NovoLOG) 100 UNIT/ML VIAL SQ ONE (09:52)
[2021-12-06] MEDS ORDERED: IPRATROPIUM-ALBUTEROL 3 ML NEB INHALATION STA (10:00)
[2021-12-06] MEDS ORDERED: NALOXONE 0.4 MG/ML 1 ML VIAL ONE (10:59)
[2021-12-06] MEDS ORDERED: diphenhydrAMINE 50 MG/ML 1 ML VIAL ONE (10:59)
[2021-12-06] MEDS ORDERED: KETAMINE 10 MG/ML 20 ML VIAL ONE (10:59)
[2021-12-06] MEDS ORDERED: fentaNYL (PF) 50 MCG/ML 2 ML AMP ONE (10:59)
[2021-12-06] MEDS ORDERED: MIDAZOLAM 2 MG/2 ML VIAL ONE (10:59)
[2021-12-06] MEDS ORDERED: DEXAMETHASONE SOD PHOSPHATE 10 MG/ML 1 ML VIAL ONE (10:59)
[2021-12-06] MEDS ORDERED: LIDOCAINE 1% INJ 10MG/ML (20 ML MDV) ONE (10:59)
[2021-12-06] MEDS ORDERED: FLUMAZENIL 0.1 MG/ML 5 ML VIAL IVP ONE (10:59)
[2021-12-06] MEDS ORDERED: PROPOFOL 10 MG/ML 20 ML VIAL IV ONE (10:59)
[2021-12-06] MEDS ORDERED: LIDOCAINE 1%-EPI 1:100,000 20 ML VIAL SQ ONE (11:22)
[2021-12-06] MEDS ORDERED: BACITRACIN ZINC 500 UNIT/GM OINT 28.4 GM TUBE TOPICAL ONE (12:46)
--- NOTE | 2021-12-06 12:59 | P.OP ---
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 Operative Findings: Left vocal Cord paralysis, laryngeal cartilage externally had normal anatomy Description of Procedure: The patient was brought in the operative suite and placed in a supine position. Patient underwent induction of IV sedation appropriate monitors were placed by the hand i thermal cutter. Patient was prepped and draped in usual aseptic fashion. 1% lidocaine with [id number] epinephrine was infused subcutaneously at the proposed left medial neck incision site. This was left for 7 minutes vasoconstrictive effect. A transverse left medial cervical incision was made 5 mm below the inferior aspect of the thyroid cartilage and carried sharply through skin and subcutaneous tissue and platysma layers. Strap muscles were identified and were able to be reflected laterally off of the underlying deep strap muscles. The thyroid hyoid muscle was detached from the inferior attachment and good hemostasis was noted. The thyroid a left was well visualized. The primary thyroplasty set was then utilized to identify the ziegler point and the cartilaginous window was then marked based on the ziegler point. The cartilaginous window was then made and the underlying perichondrium was scored and incised sharply and then dissected from the medial aspect of the thyroid cartilage. At this point the sedation was decreased and she was given 50 mg of IV lidocaine. The patient remains sedated but was not cooperative with counting numbers with thyroplasty implant sizers as she was very disoriented. Over 30 minutes was allowed to elapse to allow the patient to try to vocalize with the various size thyroplasty sizers but she still could not do this and therefore it was elected to place a #9 female Mcdonald thyroplasty implant. With the minimal vocalization that she was able to obtain there was no strain no stridor and improved voice. The wound was then copiously irrigated with sterile normal saline and the strap muscles were reapproximated midline with 3-0 Vicryl suture. A #7 round suction drain was placed in a separate stab incision. The platysma and deep subcutaneous layers were closed with inverted interrupted 4-0 Vicryl suture skin closed with running locking 4-0 Prolene suture. Drain was sutured to the skin with 3-0 silk suture and the wound was dressed with bacitracin ointment and sterile dressing. Flexible laryngoscopy was not able to be performed due to the patient's inability to cooperate with this. She had no stridor and good airway. The patient was allowed to continue to emerge from anesthesia having tolerated procedure well and was transferred to the postop recovery area in satisfactory
[2021-12-06 13:16] VITALS: TEMP 97.5
[2021-12-06] MEDS: fentaNYL (PF) 50 MCG/ML 2 ML AMP IV PRN ×2 (13:31→13:51)
[2021-12-06 14:28] VITALS: RESP 20
[2021-12-06] MEDS ORDERED: hydrALAZINE HCL 20 MG/ML 1 ML VIAL ONE (14:57)
[2021-12-06] MEDS ORDERED: hydrALAZINE HCL 20 MG/ML 1 ML VIAL IV ONE (15:00)
[2021-12-06 16:00] VITALS: BP 186/80; PULSE 90
== END 2021-12-06 15:45 | disposition home or self-care (01) ==
LOC: OR 08:40
PROVIDERS: ATTEND Otolaryngology
DX: J38.01 Paralysis of vocal cords and larynx, unilateral (principal); C38.3 Malignant neoplasm of mediastinum, part unspecified; E11.9 Type 2 diabetes mellitus without complications; Z87.891 Personal history of nicotine dependence; F41.9 Anxiety disorder, unspecified; F32.A Depression, unspecified; L30.9 Dermatitis, unspecified; K21.9 Gastro-esophageal reflux disease without esophagitis; G43.909 Migraine, unspecified, not intractable, without status migrainosus; E78.00 Pure hypercholesterolemia, unspecified; I10 Essential (primary) hypertension; E07.9 Disorder of thyroid, unspecified; Z98.891 History of uterine scar from previous surgery; Z90.49 Acquired absence of other specified parts of digestive tract; Z98.890 Other specified postprocedural states; Z82.49 Family history of ischemic heart disease and other diseases of the circulatory system; Z80.3 Family history of malignant neoplasm of breast; Z80.1 Family history of malignant neoplasm of trachea, bronchus and lung; E78.5 Hyperlipidemia, unspecified; J44.9 Chronic obstructive pulmonary disease, unspecified; Z79.891 Long term (current) use of opiate analgesic; Z79.84 Long term (current) use of oral hypoglycemic drugs; Z79.899 Other long term (current) drug therapy; Z91.012 Allergy to eggs; Z88.5 Allergy status to narcotic agent; Z88.2 Allergy status to sulfonamides; Z88.8 Allergy status to other drugs, medicaments and biological substances; Z91.09 Other allergy status, other than to drugs and biological substances
CPT/HCPCS: 94640; 31591; L8509; J2250; J0360; J1200; J1100; J2310; J2405; J0690; J2001; J3010; J2704

== ENCOUNTER → 2022-03-08 | Outpatient (CLI) | payer MEDICARE, OTHER ==
--- NOTE | 2022-03-08 12:53 | CT ---
EXAMINATION TYPE: CT ChestAbdPelvis w con DATE OF EXAM: 03/08/2022 COMPARISON: Chest CT August 25, 2021 HISTORY: Lung Cancer CT DLP: 537.30 mGycm. Automated Exposure Control for Dose Reduction was Utilized. CONTRAST: CT scan of the thorax, abdomen and pelvis is performed with oral and with IV Contrast, patient inject ed with 100 mL of Isovue 300. FINDINGS: LUNGS: Mild to moderate underlying emphysematous changes redemonstrated. Persistent spiculated 3.0 x 2.1 cm mass medially left upper lobe axial image 12 decreased in size from 4.1 x 3.5 cm on prior. New suspicious 5 mm posterior right upper lobe nodule axial image 12. There is 8 x 5 mm nodule abutting the fissure left midlung anteriorly axial image 19 slightly larger from prior. Slightly more promine nt focal nodular scarring in the superior aspect right lower lobe axial image 22. Improved 5 mm media l right lower lobe nodule from 7 mm on prior axial image 29. Less prominent spiculated 6 mm nodule la teral to this same image. Stable 1.0 cm peripheral right lower lobe nodule axial image 41. Mild-to-mo derate parenchymal fibrotic change in the periphery. No pleural effusion or pneumothorax is seen. MEDIASTINUM: Abnormal left suprahilar mass or adenopathy difficult to accurately measure is less prom inent versus prior with less mass effect on the left upper lobe pulmonary artery. Stable slightly enl arged right hilar lymph nodes axial image 25. No cardiomegaly or pericardial effusion is seen. LIVER/GB: Stable 2.2 cm low dense lesion in the left hepatic lobe axial image 44. Occasional scattere d solitary thin-walled cysts throughout the liver are stable. Cholecystectomy clips redemonstrated. PANCREAS: No significant abnormality is seen. SPLEEN: No significant abnormality is seen. ADRENALS: Stable slight thickening to left adrenal gland axial image 55 favoring benign hyperplasia. KIDNEYS: Subcentimeter low dense lesion image 29 series 5 left kidney lower pole level favors benign thin-walled cyst. BOWEL: The oral does not reach colonic level making evaluation distal bowel slightly suboptimal. No s uspicious small or large bowel dilatation is seen. Mild diffuse colonic fecal prominence. Little intr a-abdominal fat makes evaluation slightly suboptimal. Diverticula throughout the left and sigmoid col on. No CT evidence for acute diverticulitis. GENITAL ORGANS: No gross abnormality seen. LYMPH NODES: No greater than 1cm abdominal or pelvic lymph nodes are appreciated. OSSEOUS STRUCTURES: Multilevel facet arthropathy greatest lower left aspect. Severe disc space narrow ing lumbosacral junction. OTHER: Moderate atherosclerotic change of aorta extends into branch vessels. IMPRESSION: Overall mixed response as detailed above. Largest lung mass or neoplasm diminished in siz e. Adjacent left suprahilar mass or adenopathy is also improved.
== END | disposition home or self-care (01) ==
LOC: RADCTMAIN 09:01
PROVIDERS: ATTEND Internal Medicine Hematology & Oncology
DX: D49.1 Neoplasm of unspecified behavior of respiratory system (principal); C34.12 Malignant neoplasm of upper lobe, left bronchus or lung
CPT/HCPCS: 82565; 84520; 71260; 74177; 36415; Q9967

== ENCOUNTER → 2022-04-26 | Outpatient (CLI) | payer MEDICARE, OTHER ==
--- NOTE | 2022-04-26 17:19 | US ---
EXAMINATION TYPE: US carotid duplex BILAT DATE OF EXAM: 04/26/2022 COMPARISON: 04/10/2019 CLINICAL HISTORY: 77-year-old female I65.23 OCCLUSION AND STENOSIS OF CAROTID ARTERIES. TECHNIQUE: Carotid duplex ultrasound examination. Indirect Doppler criteria is visualized. FINDINGS: EXAM MEASUREMENTS: RIGHT: Peak Systolic Velocity (PSV) cm/sec ----- Right CCA: 50.1 ----- Right ICA: 111.5 ----- Right ECA: 104. ICA/CCA ratio: 2.2 RIGHT: End Diastole cm/sec ----- Right CCA: 12.8 ----- Right ICA: 38.3 ----- Right ECA: 17.2 LEFT: Peak Systolic Velocity (PSV) cm/sec ----- Left CCA: 82.3 ----- Left ICA: 98.7 ----- Left ECA: 148.2 ICA/CCA ratio: 1.2 LEFT: End Diastole cm/sec ----- Left CCA: 16.8 ----- Left ICA: 33.8 ----- Left ECA: 23.7 VERTEBRALS (direction of flow): Right Vertebral: Antegrade Left Vertebral: Antegrade Rhythm: Normal Heel Boom Operator notes: Moderate atherosclerotic changes with slight velocity increase seen on right ICA. IMPRESSION: Right ICA/CCA ratio on the right is mildly elevated. This may reflect a moderate (50-69%) right ICA s tenosis. Criteria for Assigning % of Stenosis / Diameter reduction (Estimation based on the indirect measurements of the internal carotid artery velocities (ICA PSV). 1. Normal (no stenosis)=ICA PSV < 125 cm/s: ratio < 2.0: ICA EDV<40 cm/s. 2. Less than 50% stenosis=ICA PSV < 125 cm/s: ratio < 2.0: ICA EDV<40 cm/s. 3. 50 to 69% stenosis=ICA PSV of 125 to 230 cm/s: ration 2.0 ? 4.0: ICA EDV 40-100 cm/s. 4. Greater than 70% stenosis to near occlusion= ICA PSV > 230 cm/s: ratio > 4.0: ICA EDV > 100 cm/s. 5. Near occlusion= ICA PSV velocities may be low or undetectable: variable ratio and ICA EDV. 6. Total occlusion=unable to detect flow.
--- NOTE | 2022-04-26 17:24 | US ---
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 TECHNIQUE: Multiple sonographic images of the thyroid gland are obtained. GLAND SIZE: Right Lobe: 3.9 x 2.1 x 2.0 cm Overall Parenchyma: Homogeneous Left Lobe: 4.2 x 1.6 x 1.6 cm Overall Parenchyma: Homogeneous Isthmus Thickness: 2 mm NODULES RIGHT: # of nodules measured on right: 1. ) 2.0 X 1.3 x 1.6 cm, upper , cystic or almost completely cystic, anechoic nodule, which is wider than tall, with smooth margins, without echogenic foci. Some mural base irregular thickening is agai n noted. Prior size: 1.3 x 1.3 x 0.7 cm 2. 0.8 X 0.7 x 0.7 cm, mid, solid or almost completely solid, hyperechoic nodule, which is wider th an tall, with smooth margins, without echogenic foci. Prior size: 1.1 x 0.7 x 0.7 cm 3. 1.1 X 0.4 x 0.8 cm, benign upper pole cyst. Not seen previously Subcentimeter inferior nodule noted. LEFT: # of nodules measured on left: 2 1. 2.2 X 1.0 x 1.5 cm, mid, solid or almost completely solid, mixed solid cystic hypoechoic nodule, which is wider than tall, with smooth margins, with echogenic foci. Prior size: 1.7 x 0.8 x 1.2 cm 2. 0.5 X 0.3 x 0.5 cm, upper , cystic or almost completely cystic, anechoic nodule, which is wider than tall, with smooth margins, without echogenic foci. Prior size: 0.5 x 0.2 x 0.4 cm ISTHMUS: # of nodules measured in the isthmus: 0 Bilateral neck scanned, no evidence of lymphadenopathy. IMPRESSION: 1. Dominant mixed nodule on the left measures 2.2 cm versus 1.7 cm, previously. Continue to follow. I f it reaches 2.5 cm, biopsy can be performed. 2. Complex cystic nodule right upper pole has enlarged in the interval, currently 2.0 cm versus 1.3 c m, previously. There is some irregular mural based soft tissue component. This should also continue t o be followed. Biopsy if it reaches 2.5 cm.
== END | disposition home or self-care (01) ==
LOC: RADMAMWWP 13:51
PROVIDERS: ATTEND Family Medicine
DX: Z12.31 Encounter for screening mammogram for malignant neoplasm of breast (principal); E04.2 Nontoxic multinodular goiter; I65.23 Occlusion and stenosis of bilateral carotid arteries
CPT/HCPCS: 76536; 77063; 77067; 93880

== ENCOUNTER → 2022-05-28 | Outpatient (CLI) | payer MEDICARE, OTHER ==
[2022-05-28 18:46] LABS: Basophils # (A) 0.06 X 10*3/uL (0.00-0.10); Basophils % (A) 0.6 %; Eosinophils # (A) 0.36 X 10*3/uL (0.04-0.35); Eosinophils % (A) 3.8 %; HCT 46.3 % (37.2-46.3); HGB 14.9 g/dL (12.0-15.0); Immature Grans, Automated 0.3 %; Lymphocytes # (A) 1.92 X 10*3/uL (0.90-5.00); Lymphocytes % (A) 20.2 %; MCH 30.3 pg (27.0-32.0); MCHC 32.2 g/dL (32.0-37.0); MCV 94.3 fL (80.0-97.0); Monocytes # (A) 0.67 X 10*3/uL (0.20-1.00); Monocytes % (A) 7.1 %; NRBC Per 100 WBC 0 /100 WBCS (0.0-0.0); Neutrophils # (A) 6.45 X 10*3/uL (1.80-7.70); Platelet Count 385 X 10*3/uL (140-440); RBC 4.91 X 10*6/uL (4.10-5.20); WBC 9.49 X 10*3/uL (4.50-10.00)
[2022-05-28 19:20] LABS: ALT 20 U/L (8-44); AST 18 U/L (13-35); African American GFR (CKD) 83.6 (60.0-200.0); Albumin 4.5 g/dL (3.8-4.9); Albumin/Globulin Ratio 2.14 (1.60-3.17); Alkaline Phosphatase 71 U/L (41-126); BUN/Creat Ratio 15.13 Ratio (12.00-20.00); Blood Urea Nitrogen 12.1 mg/dL (9.0-27.0); Calcium 9.8 mg/dL (8.7-10.3); Carbon Dioxide 23.6 mmol/L (20.0-27.5); Chloride 104 mmol/L (96-109); Chol/HDL Ratio 2.43 Ratio; Globulin 2.1 g/dL (1.6-3.3); Glucose 219 mg/dL (70-110); Non-African American GFR(CKD) 72.1 (60.0-200.0); Potassium 4.7 mmol/L (3.5-5.5); Sodium 139 mmol/L (135-145); Total Protein 6.6 g/dL (6.2-8.2)
[2022-05-28 20:05] LABS: Appearance,Urine Cloudy (Clear); Bilirubin,Urine Negative (Negative); Blood,Urine Trace (Negative); Color,Urine Dark Yellow (Yellow); Ketones,Urine Trace mg/dL (Negative); Nitrite,Urine Negative (Negative); Specific Gravity,Urine 1.025 (1.001-1.030)
[2022-05-28 20:13] LABS: Bacteria,Urine 1+ /HPF (None Seen)
== END | disposition home or self-care (01) ==
LOC: LABWHC1 11:39
PROVIDERS: ATTEND Family Medicine
DX: Z00.01 Encounter for general adult medical examination with abnormal findings (principal); E04.2 Nontoxic multinodular goiter; E78.5 Hyperlipidemia, unspecified; E11.65 Type 2 diabetes mellitus with hyperglycemia
CPT/HCPCS: 36415; 80053; 80061; 81001; 82306; 83036; 84443; 85025

== ENCOUNTER → 2022-07-10 | Outpatient (CLI) | payer MEDICARE, OTHER ==
--- NOTE | 2022-07-10 15:15 | CT ---
EXAMINATION TYPE: CT ChestAbdPelvis w con CT DLP: 581.9 mGycm, Automated exposure control for dose reduction was used. DATE OF EXAM: 07/10/2022 1:49 PM COMPARISON: CT chest abdomen pelvis 02/28/2022 CLINICAL INDICATION:Female, 77 years old with history of C34.12 Lung ca, Lung CA Technique: Multiple axial images of the chest, abdomen, and pelvis were obtained. Two-dimensional cor onal and sagittal reconstructions were obtained. Contrast used:100 mL of Isovue 300 with IV Contrast, Oral contrast used: with Oral Contrast Findings: CHEST: LUNGS/ PLEURA: * Left upper lobe pulmonary mass has a similar morphology measuring 29 x 19 mm within compared to with extension towards the suprahilar region of the left pulmonary hilum. * Right lower lung nodule-like area measures 10 x 6 mm. (Series 4 image 49), stable. * Right upper lobe pulmonary nodule measuring 5 mm (series 4 image 16) , stable. * Right lower lobe 7 mm nodule (series 4 image 35), stable. * Right lower lobe medial pulmonary nodule previously measuring 5 mm is now more streaky on today's exam suggesting resolution. * Left upper lobe anterior to the major fissure measuring 8 mm (image 23). * Left lower lobe pulmonary nodule centrally on series 4 image 28 are new. * New pulmonary nodules in the left lower lobe best appreciated on series 4 image 28 measuring up to 7 mm. * New peripheral groundglass opacity on image 48 measuring 5 mm. There is moderate centrilobular emphysema changes scattered throughout the lung. AIRWAY: Patent and unremarkable. HEART: Size within normal limits. MEDIASTINUM: No gross evidence of adenopathy. VASCULATURE: No aortic aneurysm. MUSCULOSKELETAL: No acute osseous abnormalities. SOFT TISSUES/LYMPH NODES: Unremarkable. LOWER NECK: Similar right thyroid gland hypodense nodules. ABDOMEN: ABDOMEN LIVER: Scattered cystic changes to the liver parenchyma which are unchanged from prior the larger one in segment 4A demonstrates peripheral calcification which is also unchanged. GALLBLADDER AND BILE DUCTS: The gallbladder is surgically absent. PANCREAS: Unremarkable. SPLEEN: Unremarkable. ADRENAL GLANDS: Unremarkable. KIDNEYS AND URETERS: No evidence of hydronephrosis or renal calculus. The ureters are unremarkable. Right renal cyst is present. PELVIS BLADDER: Unremarkable REPRODUCTIVE: Unremarkable. ABDOMEN & PELVIS STOMACH AND BOWEL: No evidence of bowel obstruction. Scattered clonic diverticula present. There is a large stool burden throughout the colon. The appendix is normal. PERITONEUM: No evidence of pneumoperitoneum or free fluid. VASCULATURE: Moderate atherosclerotic calcifications are present throughout the abdominal aorta and i ts branches. MUSCULOSKELETAL: No acute osseous abnormalities postsurgical changes to the lower spine. Hardware skyla ears intact at L4-L5 with discectomy at L4-L5. LYMPH NODES: No gross evidence for lymphadenopathy. SOFT TISSUE/ABDOMINAL WALL: Unremarkable IMPRESSION: 1. Stable appearance of dominant left upper lobe mass with extension towards the left pulmonary hilu m when comparing to 02/28/2022. 2. New left lower lobe pulmonary nodules measuring up to 7 mm. Attention on short-term follow-up malorie ging in 3-6 months. 3. No evidence of adenopathy within the abdomen or pelvis.
== END | disposition home or self-care (01) ==
LOC: RADCTMAIN 11:46
PROVIDERS: ATTEND Internal Medicine Hematology & Oncology
DX: Z03.89 Encounter for observation for other suspected diseases and conditions ruled out (principal); C34.12 Malignant neoplasm of upper lobe, left bronchus or lung
CPT/HCPCS: 82565; 84520; 71260; 74177; 36415; Q9967

== ENCOUNTER → 2022-10-23 | Outpatient (CLI) | payer MEDICARE, OTHER ==
--- NOTE | 2022-10-23 21:52 | US ---
EXAMINATION TYPE: US arterial LE multi level DATE OF EXAM: 10/23/2022 2:48 PM CLINICAL HISTORY: I73.9 PERIPHERAL VASCULAR DISEASE, UNSPECIFIED. Previous smoker, diabetic, high cholesterol. Patient toes are purple on right. Left toes are red. Doppler Waveforms: Right: Monophasic Left: Monophasic Pulse Volume Recording: Pressure Gradients: Ankle-Brachial Indices: Right: 0.40 Left: 0.41 Toe Brachial Indices: Right: unable to obtain waveform/flatline Left: unable to obtain waveform/flatline IMPRESSION: Markedly abnormal study. Severe peripheral arterial disease bilaterally is present. Clin ical correlation and follow-up advised.
== END | disposition home or self-care (01) ==
LOC: RADUSWWP 13:36
PROVIDERS: ATTEND Student in an Organized Health Care Education/Training Program
DX: I73.9 Peripheral vascular disease, unspecified (principal); E11.51 Type 2 diabetes mellitus with diabetic peripheral angiopathy without gangrene; E78.00 Pure hypercholesterolemia, unspecified; Z87.891 Personal history of nicotine dependence
CPT/HCPCS: 93923

== ENCOUNTER → 2022-11-06 | Outpatient (CLI) | payer MEDICARE, OTHER ==
--- NOTE | 2022-11-06 16:32 | CT ---
EXAMINATION TYPE: CT ChestAbdPelvis w con CT DLP: 527.5 mGycm, Automated exposure control for dose reduction was used. DATE OF EXAM: 11/06/2022 1:35 PM COMPARISON: CT chest abdomen pelvis 07/10/2022. CLINICAL INDICATION:Female, 77 years old with history of C34.12 LUNG CANCER; PHH, f/u lung ca Technique: Multiple axial images of the chest, abdomen, and pelvis were obtained following the intrav enous administration of 100 mL Isovue-300. Oral contrast administered. Two-dimensional coronal and sa gittal reconstructions were obtained. Findings: CHEST: LUNGS/ PLEURA: * Left upper lobe pulmonary mass is stable to marginally decreased in size measuring 28 x 17 mm with extension towards the suprahilar region of the left pulmonary hilum (series 4, image 14). There is no w a cavitary component identified. Previously measured 29 x 19 mm. * Right lower lung nodule-like area measures 9 x 6 mm. (Series 4 image 46), stable, previously 10 x 6 mm. * Right upper lobe pulmonary nodule measuring 5 mm (series 4 image 14), stable. Previously 5 mm. * Right lower lobe 7 mm nodule (series 4 image 32), stable. Previously 7 mm. * Right lower lobe superior segment 7 mm nodule (series 4, image 24), previously 7 mm. * Left upper lobe anterior to the major fissure measuring 8 millimeters (series 4, image 20), previou sly 8 mm. * Left lower lobe peripheral 5 lumbar pulmonary nodule (series 4, image 26), previously 6 mm. Additional left lower lobe central pulmonary nodules are not well appreciated on today's exam. No new or enlarging pulmonary nodules. Moderate centrilobular emphysema changes scattered throughout the lung. No pneumothorax or pleural ef fusion. AIRWAY: Patent and unremarkable. HEART: Size within normal limits. MEDIASTINUM: Stable enlarged right hilar lymph node measuring 1.2 cm short axis (series 3, measures 2 7). VASCULATURE: No aortic aneurysm. MUSCULOSKELETAL: No acute osseous abnormalities. SOFT TISSUES/LYMPH NODES: Unremarkable. LOWER NECK: Similar bilateral thyroid gland hypodense nodules. ABDOMEN: ABDOMEN LIVER: Scattered cystic changes to the liver parenchyma which are unchanged from prior the la rger one in segment 4A demonstrates peripheral calcification which is also unchanged. GALLBLADDER AND BILE DUCTS: The gallbladder is surgically absent. Hepatic biliary ductal dilatation w hich is not unexpected in a setting of cholecystectomy. PANCREAS: Unremarkable. SPLEEN: Unremarkable. ADRENAL GLANDS: Unremarkable. KIDNEYS AND URETERS: No evidence of hydronephrosis or renal calculus. The ureters are unremarkable. R ight renal cyst is present. PELVIS BLADDER: Unremarkable REPRODUCTIVE: Unremarkable. ABDOMEN PELVIS STOMACH AND BOWEL: No evidence of bowel obstruction. Scattered colonic diverticula present. There is a moderate stool burden throughout the colon. The appendix is normal. PERITONEUM: No evidence of pneu moperitoneum or free fluid. VASCULATURE: Moderate atherosclerotic calcifications are present throughout the abdominal aorta and i ts branches. MUSCULOSKELETAL: No acute osseous abnormalities. Postsurgical changes to the lower spine. Hardware ap pears intact at L4-L5 with discectomy at L4-L5. LYMPH NODES: No gross evidence for lymphadenopathy. SOFT TISSUE/ABDOMINAL WALL: Unremarkable IMPRESSION: 1. Stable to marginal decrease size of dominant left upper lobe nodule with extension towards the lef t pulmonary hilum. There is now a cavitary component. 2. Remaining bilateral pulmonary nodules are stable. Previously seen left central lower lobe pulmonar y nodule is not appreciated in today's exam. No new pulmonary nodules. 3. Stable right hilar adenopathy. 4, No evidence of adenopathy within the abdomen or pelvis.
== END | disposition home or self-care (01) ==
LOC: RADCTMAIN 11:36
PROVIDERS: ATTEND Internal Medicine Hematology & Oncology
DX: C34.12 Malignant neoplasm of upper lobe, left bronchus or lung (principal); R91.8 Other nonspecific abnormal finding of lung field; R59.0 Localized enlarged lymph nodes
CPT/HCPCS: 82565; 84520; 71260; 74177; 36415; Q9967

== ENCOUNTER → 2022-12-11 | Outpatient (CLI) | payer MEDICARE, OTHER ==
--- NOTE | 2022-12-11 20:06 | US ---
EXAMINATION TYPE: US thyroid st tissue head/neck DATE OF EXAM: 12/11/2022 COMPARISON: US CLINICAL HISTORY: E04.1 single thyroid nodule. F/U nodules GLAND SIZE: Right Lobe: 4.2 x 1.9 x 1.6 cm Overall Parenchyma: homogenous Left Lobe: 4.6 x 1.4 x 1.7 cm Overall Parenchyma: homogeneous Isthmus Thickness: 0.3 cm NODULES RIGHT: # of nodules measured on right: 2 1. 1.9 x 1.0 x 1.6 cm , upper, Prior size: 2.0 x 1.3 x 1.6 cm TIRADS Score: 1 TIRADS Category 2: Not Suspicious Composition: Mixed cystic and solid (1 point). Echogenicity: Anechoic (0 points). Shape: Wider than tall (0 points). Margin: Smooth (0 points). Echogenic foci: None or large comet-tail artifacts (0 points) Recommendation: No FNA 2. 0.9 X 0.6 x 0.6 cm, mid, Prior size: 0.8 x 0.7 x 0.7 cm TIRADS Score: 4 TIRADS Category 4: Moderately Suspicious Composition: Solid or almost completely solid (2 points). Echogenicity: Hypoechoic (2 points). Shape: Wider than tall (0 points). Margin: Smooth (0 points). Echogenic foci: None or large comet-tail artifacts (0 points) Recommendation: If >1.5cm: FNA; If >1cm: Follow up at 1,2, 3,5 years LEFT: # of nodules measured on left: 1. 2.1 X 1.1 x 1.3 cm, mid, Prior size: 2.2 x 1.0 x 1.5 cm TIRADS Score: 1 TIRADS Category 2: Not Suspicious Composition: Mixed cystic and solid (1 point). Echogenicity: Anechoic (0 points). Shape: Wider than tall (0 points). Margin: Smooth (0 points). Echogenic foci: None or large comet-tail artifacts (0 points) Recommendation: No FNA 2. 0.5 X 0.3 x 0.4 cm, mid, Prior size: 0.5 x 0.3 x 0.5 cm TIRADS Score: 1 TIRADS Category 2: Not Suspicious Composition: Mixed cystic and solid (1 point). Echogenicity: Anechoic (0 points). Shape: Wider than tall (0 points). Margin: Smooth (0 points). Echogenic foci: None or large comet-tail artifacts (0 points) Recommendation: No FNA ISTHMUS: # of nodules measured in the isthmus: 0 Bilateral neck scanned, no evidence of lymphadenopathy. Stable nodules bilaterally. IMPRESSION: Thyroid nodules with descriptions and recommendations as described above.
== END | disposition home or self-care (01) ==
LOC: RADUSWWP 15:43
PROVIDERS: ATTEND Family Medicine
DX: E04.2 Nontoxic multinodular goiter (principal)
CPT/HCPCS: 76536

== ENCOUNTER → 2023-03-12 | Outpatient (CLI) | payer MEDICARE, OTHER ==
--- NOTE | 2023-03-12 14:57 | CT ---
EXAMINATION TYPE: CT ChestAbdPelvis w con DATE OF EXAM: 03/12/2023 COMPARISON: 11/06/2022, 07/10/2022 HISTORY: 78-year-old female C34.12, Lung Cancer TECHNIQUE: Contiguous axial scanning of the chest, abdomen, and pelvis performed with IV Contrast, pa tient injected with 100 ml mL of Isovue 370. Delayed images through the kidneys were obtained. Crystal l/sagittal reconstructions performed. CT DLP: 536.10 mGycm Automated exposure control for dose reduction was used. FINDINGS: CHEST: Stable 1.5 cm nodule right thyroid lobe and 1.3 cm left thyroid lobe. Heart normal size without pericardial effusion. Mildly ectatic ascending aorta 3.7 cm in conventional arch vessel branching anatomy. Unchanged mild soft tissue surrounding the sandi, AP window region, and both janelle. Background moderate centrilobular emphysema. Oval masslike opacity medial left upper lobe measures approximately stable at 3.4 x 1.6 cm versus 3.1 x 1.7 cm, previously. The previous area of central cavitation, however, may be filling in. Additional scattered 8 mm smaller bilateral pulmonary nodules remain unchanged. Unchanged chronic scarring/consolidation posterior right base. No pleural effusion. ABDOMEN: Redemonstrated renal cysts and dilatation of the bile duct up to 1.5 cm. Cholecystectomy clips. 2.4 c m diverticulum of the portion of the duodenum projecting to the pancreatic head region. Similar slight nodular thickening of the right adrenal gland though possibly minimally decreased at 1 .0 cm now. Slight thickening left adrenal gland is unchanged. A few small benign cortical cysts within the kidneys. Spleen and pancreas show no gross abnormality. Moderate atherosclerotic calcifications and plaque within the infrarenal abdominal aorta and iliac ar teries. No dilated small bowel, free fluid, or free air. No mesenteric or retroperitoneal lymphadenopathy. Normal appendix. There is moderate stool burden. No pericolonic inflammatory change. PELVIS: Bladder urine distended. Multiple pelvic phlebolith. No abnormal fluid collection in the pelvis or pe lvic lymphadenopathy. Uterus anteverted. Both ovaries are visualized. BONES: Mild degenerative change of both hips. Transitional lumbosacral segment. Postsurgical change of L4-L5 posterior fusion towards the left. Moderate degenerative disc disease midthoracic spine. Postsurgica l change IMPRESSION: 1. OVERALL STABLE SIZE OF THE MEDIAL LEFT UPPER LOBE MASS AT 3.4 X 1.6 CM. HOWEVER, THE PREVIOUS AREA OF CENTRAL CAVITATION APPEARS TO BE FILLING IN. THIS COULD BE DUE TO FLUID RELATED TO THE NECROSIS V ERSUS ABNORMAL SOFT TISSUE. ONGOING CLOSE SURVEILLANCE ADVISED. 2. QUESTIONABLE SLIGHT INCREASE IN 1 CM NODULARITY RIGHT ADRENAL GLAND. ATTENTION ON FOLLOW-UP. 3. Mild soft tissue density around the sandi and both janelle remains unchanged back to at least 07/10/ 022. 4. Scattered 8 mm and smaller pulmonary nodules remain unchanged. 5. COPD with moderate emphysema.
== END | disposition home or self-care (01) ==
LOC: RADCTMAIN 11:56
PROVIDERS: ATTEND Internal Medicine Hematology & Oncology
DX: C34.12 Malignant neoplasm of upper lobe, left bronchus or lung (principal); J43.9 Emphysema, unspecified; I10 Essential (primary) hypertension; E78.5 Hyperlipidemia, unspecified; E11.9 Type 2 diabetes mellitus without complications; J98.4 Other disorders of lung; R91.8 Other nonspecific abnormal finding of lung field
CPT/HCPCS: 82565; 84520; 71260; 74177; 36415; Q9967

== ENCOUNTER → 2023-04-12 | Outpatient (CLI) | payer MEDICARE, OTHER ==
[2023-04-12 16:52] LABS: ALT 20 U/L (8-44); AST 25 U/L (13-35); Albumin 4.9 g/dL (3.8-4.9); Albumin/Globulin Ratio 2.13 (1.60-3.17); Alkaline Phosphatase 68 U/L (41-126); BUN/Creat Ratio 14.78 Ratio (12.00-20.00); Blood Urea Nitrogen 13.3 mg/dL (9.0-27.0); Calcium 10.2 mg/dL (8.7-10.3); Carbon Dioxide 25.7 mmol/L (20.0-27.5); Chloride 100 mmol/L (96-109); Chol/HDL Ratio 2.33 Ratio; Globulin 2.3 g/dL (1.6-3.3); Glucose 255 mg/dL (70-110); LDL Cholesterol,Calculated 75.1 mg/dL (0.0-131.0); Non-African American GFR(CKD) 62.1 (60.0-200.0); Sodium 139 mmol/L (135-145); Total Protein 7.2 g/dL (6.2-8.2); VLDL Calculation 15.68 mg/dL (5.00-40.00)
[2023-04-12 17:01] LABS: Basophils % (A) 0.8 %; Eosinophils # (A) 0.57 X 10*3/uL (0.04-0.35); Eosinophils % (A) 4.6 %; HCT 45.6 % (37.2-46.3); HGB 15.4 g/dL (12.0-15.0); Immature Grans, Automated 0.2 %; Lymphocytes # (A) 2.43 X 10*3/uL (0.90-5.00); Lymphocytes % (A) 19.5 %; MCH 32.5 pg (27.0-32.0); MCHC 33.8 g/dL (32.0-37.0); MCV 96.2 fL (80.0-97.0); Mean Platelet Volume 9.7 fL (9.5-12.2); Monocytes # (A) 0.96 X 10*3/uL (0.20-1.00); Monocytes % (A) 7.7 %; NRBC Per 100 WBC 0 /100 WBCS (0.0-0.0); Neutrophils # (A) 8.36 X 10*3/uL (1.80-7.70); Neutrophils % (A) 67.2 %; Platelet Count 424 X 10*3/uL (140-440); RBC 4.74 X 10*6/uL (4.10-5.20); RDW 12.2 % (11.5-14.5); WBC 12.45 X 10*3/uL (4.50-10.00)
== END | disposition home or self-care (01) ==
LOC: LABWHC1 09:00
PROVIDERS: ATTEND Family Medicine
DX: E11.65 Type 2 diabetes mellitus with hyperglycemia (principal); E78.5 Hyperlipidemia, unspecified; E04.2 Nontoxic multinodular goiter
CPT/HCPCS: 36415; 80053; 80061; 82043; 82570; 83036; 84439; 84443; 85025

== ENCOUNTER → 2023-04-29 | Outpatient (CLI) | payer MEDICARE, OTHER ==
--- NOTE | 2023-04-30 09:06 | MM ---
Reason for Exam: Screening (asymptomatic). Last screening mammogram was performed 12 month(s) ago. Patient History: Menarche at age 14. First Full-Term at age 21. Postmenopausal. Cyst Aspiration on the Right side. Cyst Aspiration on the Left side. Cyst Aspiration on the Right side. Cyst Aspiration on the Left side. 05/15/2000, Excisional Biopsy on the Right side. Maternal grandmother had breast cancer, age 58. Risk Values: Paula 5 year model risk: 1.5%. NCI Lifetime model risk: 3.1%. Prior Study Comparison: 10/10/2015 Bilateral Screening Mammogram, [facility]. 05/09/2018 Bilateral Screening Mammogram, [facility]. 04/26/2022 Bilateral MG 3D screening mammo w/cad, [facility]. Tissue Density: The breast tissue is heterogeneously dense. This may lower the sensitivity of mammography. Findings: Analyzed By CAD. Benign bilateral oil cyst calcifications. There is no suspicious group of microcalcifications or new suspicious mass in either breast. Overall Assessment: Benign, BI-RAD 2 Management: Screening Mammogram of both breasts in 1 year. . Patient should continue monthly self-breast exams. A clinical breast exam by your physician is recommended on an annual basis. This exam should not preclude additional follow-up of suspicious palpable abnormalities. Note on Paula scores and lifetime risk: 1. A Paula score greater than 3% is considered moderate risk. If this is the case, consider specialist referral to assess eligibility for a risk reducing agent. 2. If overall lifetime risk for the development of breast cancer is 20% or higher, the patient may qualify for future screening with alternating mammogram and breast MRI. Electronically signed and approved by: Ekta Mayfield M.D. Radiologist
== END | disposition home or self-care (01) ==
LOC: RADMAMWWP 15:09
PROVIDERS: ATTEND Family Medicine
DX: Z12.31 Encounter for screening mammogram for malignant neoplasm of breast (principal); Z78.0 Asymptomatic menopausal state; Z80.3 Family history of malignant neoplasm of breast
CPT/HCPCS: 77063; 77067

== ENCOUNTER → 2023-05-10 | Outpatient (CLI) | payer MEDICARE, OTHER ==
--- NOTE | 2023-05-10 13:26 | US ---
EXAMINATION TYPE: US thyroid st tissue head/neck DATE OF EXAM: 05/10/2023 COMPARISON: US dated December 11, 2022 and older studies CLINICAL INDICATION: Female, 78 years old with history of E04.2 NONTOXIC MULTINODULAR GOITER; GLAND SIZE: Right Lobe: 4.8 x 1.8 x 1.7 cm Overall Parenchyma: homogenous Left Lobe: 4.8 x 1.4 x 1.7 cm Overall Parenchyma: homogeneous Isthmus Thickness: 0.3 cm NODULES RIGHT: # of nodules measured on right: 2 1. 1.9 X 1.0 x 1.4 cm, upper mid, cystic or almost completely cystic, anechoic nodule, which is wid er than tall, with smooth margins, without echogenic foci. Prior size: 2.0 x 1.3 x 1.6 cm 2. 1.0 X 0.8 x 0.7 cm, mid mid, solid or almost completely solid, isoechoic nodule, which is wider than tall, with smooth margins, without echogenic foci. Prior size: 0.8 x 0.7 x 0.7 cm LEFT: # of nodules measured on left: 2 1. 2.0 X 1.0 x 1.4 cm, lower lateral, mixed cystic and solid, hypoechoic nodule, which is wider deyanira n tall, with smooth margins, without echogenic foci. Prior size: 2.2 x 1.0 x 1.5 cm 2. 0.5 X 0.3 x 0.5 cm, mid mid, solid or almost completely solid, hypoechoic nodule, which is wide r than tall, with smooth margins, without echogenic foci. Prior size: 0.5 x 0.4 x 0.5 cm ISTHMUS: # of nodules measured in the isthmus: 0 Bilateral neck scanned, no evidence of lymphadenopathy. Persistent homogeneous normal-sized thyroid with stable bilateral nodules as detailed above IMPRESSION: As above
== END | disposition home or self-care (01) ==
LOC: RADUSWWP 12:57
PROVIDERS: ATTEND Family Medicine
DX: E04.2 Nontoxic multinodular goiter (principal)
CPT/HCPCS: 76536

== ENCOUNTER → 2023-06-13 | Outpatient (CLI) | payer MEDICARE, OTHER ==
[2023-06-13 12:24] LABS: African American GFR (CKD) 77 (>60 ml/min/1.73 sqM); Blood Urea Nitrogen 21 mg/dL (7-17); Non-African American GFR(CKD) 67 (>60 ml/min/1.73 sqM)
--- NOTE | 2023-06-13 14:47 | CT ---
EXAMINATION TYPE: CT ChestAbdPelvis w con CT DLP: 608.3 mGycm, Automated exposure control for dose reduction was used. DATE OF EXAM: 06/13/2023 2:11 PM COMPARISON: 03/12/2023 and 11/06/2022. CLINICAL INDICATION:Female, 78 years old with history of C34.12 MALIGNANT NEOPLASM OF UPPER LOBE, LEF T BRON; PHH, H/O LUNG CA Technique: Multiple axial images of the chest, abdomen, and pelvis were obtained. Two-dimensional cor onal and sagittal reconstructions were obtained. Contrast used:100 mL of Isovue 300 with IV Contrast, Oral contrast used: with Oral Contrast Findings: CHEST: LUNGS/ PLEURA: * * Left upper lobe pulmonary mass is stable and morphology measuring 28 x 14 mm with extension tow ards the suprahilar region of the left pulmonary hilum likely representing atelectasis and/or scarrin g. There remains a cavitary component identified. * * Right lower lung nodule-like area measures 9 x 6 mm. (Series 5 image 48), stable, * * Right upper lobe pulmonary nodule measuring 5 mm (series 5 image 15), stable. * * Right lower lobe 7 mm nodule series 5 image 46 stable. * * Right lower lobe superior segment 7 mm nodule series 5 image 25 * * Left upper lobe anterior to the major fissure measuring 8 millimeters density is unchanged serie s 5 image 20 * * Left lower lobe peripheral 5 lumbar pulmonary nodule (series 5 image 28), stable. * Moderate centrilobular emphysema changes scattered throughout the lung. No pneumothorax or pleural effusion. AIRWAY: Patent and unremarkable. HEART: Size within normal limits. MEDIASTINUM: Stable enlarged right hilar lymph node. VASCULATURE: No aortic aneurysm. Scattered atherosclerosis of the arterial vasculature. No filling de fect to suggest pulmonary embolus in the central pulmonary trunk. MUSCULOSKELETAL: No acute osseous abnormalities. Multilevel degeneration changes of the spine. SOFT TISSUES/LYMPH NODES: Unremarkable. LOWER NECK: Similar bilateral thyroid gland hypodense nodules. ABDOMEN: ABDOMEN LIVER: Scattered cystic changes to the liver parenchyma which are unchanged from prior the la rger one in segment 4A demonstrates peripheral calcification which is also unchanged. GALLBLADDER AND BILE DUCTS: The gallbladder is surgically absent. Hepatic biliary ductal dilatation c ompatible with post cholecystectomy physiology cholecystectomy. PANCREAS: Unremarkable. SPLEEN: Unremarkable. ADRENAL GLANDS: No evidence for nodule. KIDNEYS AND URETERS: No evidence of hydronephrosis or renal calculus. The ureters are unremarkable. R ight renal cyst is present. PELVIS BLADDER: Unremarkable REPRODUCTIVE: Unremarkable. ABDOMEN PELVIS STOMACH AND BOWEL: No evidence of bowel obstruction. Scattered colonic diverticula present. There is a moderate stool burden throughout the colon. The appendix is normal. PERITONEUM: No evidence of pneu moperitoneum or free fluid. VASCULATURE: Moderate atherosclerotic calcifications are present throughout the abdominal aorta and i ts branches. MUSCULOSKELETAL: No acute osseous abnormalities. Postsurgical changes to the lower spine. Hardware ap pears intact at L4-L5 with discectomy at L4-L5. LYMPH NODES: No gross evidence for lymphadenopathy. SOFT TISSUE/ABDOMINAL WALL: Unremarkable IMPRESSION: 1. Stable pulmonary nodules no new or enlarging pulmonary nodules.. 2. Stable right hilar lymph node. 3. No evidence of adenopathy within the abdomen or pelvis. 4. Stable appearance of the adrenal gland.
== END | disposition home or self-care (01) ==
LOC: RADCTMAIN 11:52
PROVIDERS: ATTEND Internal Medicine Hematology & Oncology
DX: C34.12 Malignant neoplasm of upper lobe, left bronchus or lung (principal); I10 Essential (primary) hypertension; E78.5 Hyperlipidemia, unspecified; E11.9 Type 2 diabetes mellitus without complications; R91.8 Other nonspecific abnormal finding of lung field
CPT/HCPCS: 82565; 84520; 71260; 74177; 36415; Q9967

== ENCOUNTER → 2023-09-19 | Outpatient (CLI) | payer MEDICARE, OTHER ==
--- NOTE | 2023-09-19 12:45 | XR ---
EXAMINATION TYPE: XR hand complete bilateral DATE OF EXAM: 09/19/2023 COMPARISON: NONE HISTORY: Pain TECHNIQUE: Three views are submitted. FINDINGS: The osseous structures are intact. The joint spaces are preserved and there is no acute fracture or dislocation. Bony sclerosis middle phalanx fifth digit compatible with bone island. Remote deformity of the right ulnar styloid. Mild bilateral demineralization. Mild first carpal metacarpal bilateral arthropathy. Tiny bone island distal phalanx fifth digit left hand. Mild bilateral first MCP joint ar thropathy greater on the left. Small exostosis off the volar surface middle phalanx right third digit IMPRESSION: 1. Mild diffuse osteopenia. Joint spaces demonstrate mild first carpometacarpal and MCP joint arthrop athy bilaterally. No erosive changes.
== END | disposition home or self-care (01) ==
LOC: RADXRMAIN 12:08
PROVIDERS: ATTEND Internal Medicine Hematology & Oncology
DX: M85.80 Other specified disorders of bone density and structure, unspecified site (principal)

== ENCOUNTER → 2023-09-21 | Outpatient (CLI) | payer MEDICARE, OTHER | END | disposition home or self-care (01) | LOC: LABWHC1 08:14 | PROVIDERS: ATTEND Internal Medicine | DX: E27.40 Unspecified adrenocortical insufficiency (principal) | CPT/HCPCS: 36415; 82024; 82533 ==

== ENCOUNTER → 2023-09-25 | Outpatient (CLI) | payer MEDICARE, OTHER ==
[2023-09-25 14:36] LABS: African American GFR (CKD) 77 (>60 ml/min/1.73 sqM); Blood Urea Nitrogen 19 mg/dL (7-17); Non-African American GFR(CKD) 67 (>60 ml/min/1.73 sqM)
--- NOTE | 2023-09-26 21:48 | CT ---
EXAMINATION TYPE: CT ChestAbdPelvis w con DATE OF EXAM: 09/25/2023 COMPARISON: 06/13/2023 and 03/12/2023 HISTORY: 78-year-old female C34.12, f/u lung ca TECHNIQUE: Contiguous axial scanning of the chest, abdomen, and pelvis performed with IV Contrast, pa tient injected with 100 mL of Isovue 300. Delayed images through the kidneys were obtained. Coronal/s agittal reconstructions performed. CT DLP: 1223 mGycm Automated exposure control for dose reduction was used. FINDINGS: CHEST: The heart is normal size without pericardial effusion. Aorta normal caliber with conventional arch vessel branching anatomy. Pericarinal and AP window soft tissue thickening remains unchanged back to at least 03/12/2023. Prominent right hilar lymph node at 2.3 cm slightly smaller from 2.5 cm, previously. No progressive t horacic lymphadenopathy is identified. There is moderate centrilobular emphysema. [place] opacity anterior left upper lung measuring 3.5 x 1.7 cm remains unchanged back to at least 03/12, likely site of treated disease. A new adjacent groundglass focus lateral left upper lung is noted. Other scattered areas of nodularity measuring up to 8 mm remains unchanged back to 03/12/2023. However, a couple ground glass areas of nodularity within the lingula measuring up to 7 mm, axial image 25 an d 29 are new. An infectious/inflammatory etiology is favored but should be reassessed at follow-up. Otherwise, no new consolidation or pleural effusion. ABDOMEN: Unchanged left hepatic dome cyst measuring 2.4 cm. Additional scattered small hepatic hypodensities a re unchanged. There also appears to be similar moderate intrahepatic biliary ductal dilatation and di lated bile duct at 1.2 cm. Patient status post cholecystectomy. Redemonstrated 2.8 cm diverticulum of the second portion of the duodenum projecting into the pancreat ic head region. Cholecystectomy clips. A 1 cm nodule in the right adrenal gland and mild thickening of the left adrenal gland appears simila r compared to 03/12/2023. A few small renal cortical cysts measuring up tor 1.5 cm are unchanged. Symmetric uptake in the regio n of contrast from both kidneys. The spleen and mildly atrophic pancreas show no gross abnormality. Moderate atherosclerotic infrarenal abdominal aorta and common arteries. No dilated small bowel, free fluid, or free air. No mesenteric or retroperitoneal lymphadenopathy see n. Normal appendix. There is moderate stool burden. Left-sided colonic diverticulosis. The appearance of mild circumferential wall thickening throughout the mid to distal sigmoid colon with suggestion of s ome mucosal hyperemia. PELVIS: Bladder urine distended. Uterus is visualized. Similar 1.8 cm nodularity along the left lateral aspec t of the uterus. Possibly relating to a left uterine fibroid. No abnormal fluid collection in the pel vis or pelvic lymphadenopathy. Suspect visualization of small bilateral ovaries. Bones: Transitional lumbosacral segment is noted as a lumbarized S1. There is posterior and interbody lumbar fusion at L5-S1. Degenerative grade 1 retrolisthesis L1-L2. No osseous destructive process seen. IMPRESSION: 1. COPD WITH MODERATE EMPHYSEMA. O[place]ONG MASS WITHIN THE ANTERIOR LEFT UPPER LUNG MEASURING 3.5 CM REM AINS UNCHANGED, LIKELY SITE OF TREATED DISEASE. 2. NUMEROUS BILATERAL PULMONARY NODULES MEASURING UP TO 8 MM REMAIN UNCHANGED WELL. HOWEVER, A SIDDHARTHA UNDGLASS FOCUS LATERAL LEFT UPPER LUNG IS NEW ARE A COUPLE 7 MM GROUNDGLASS NODULES WITHIN THE WHIT GULA. AN INFECTIOUS/INFLAMMATORY ETIOLOGY IS FAVORED OVER METASTATIC DISEASE. REASSESS AT FOLLOW-UP. 3. UNCHANGED 1 CM RIGHT ADRENAL NODULE. 4. CIRCUMFERENTIAL WALL THICKENING MID TO DISTAL SIGMOID COLON MAY IN PART RELATE TO NONDISTENTION. C ORRELATE for A NONSPECIFIC INFECTIOUS OR INFLAMMATORY COLITIS. 5. INCIDENTAL: STATUS POST CHOLECYSTECTOMY WITH SIMILAR PROMINENCE TO THE BILIARY SYSTEM, MODERATE ST OOL BURDEN, LEFT-SIDED COLONIC DIVERTICULOSIS. SIMILAR 1.8 CM NODULARITY involving THE LEFT LATERAL A SPECT OF THE UTERUS MAY REFLECT AN UNDERLYING UTERINE FIBROID.
== END | disposition home or self-care (01) ==
LOC: RADCTMAIN 13:51
PROVIDERS: ATTEND Internal Medicine Hematology & Oncology
DX: C34.12 Malignant neoplasm of upper lobe, left bronchus or lung (principal); I10 Essential (primary) hypertension; E11.9 Type 2 diabetes mellitus without complications; E78.5 Hyperlipidemia, unspecified; J43.9 Emphysema, unspecified; N28.89 Other specified disorders of kidney and ureter; K63.89 Other specified diseases of intestine; K56.41 Fecal impaction; K57.30 Diverticulosis of large intestine without perforation or abscess without bleeding; R91.8 Other nonspecific abnormal finding of lung field; Z90.49 Acquired absence of other specified parts of digestive tract
CPT/HCPCS: 82565; 84520; 71260; 74177; 36415; Q9967

== ENCOUNTER → 2023-10-23 | Outpatient (CLI) | payer MEDICARE, OTHER ==
[2023-10-24 02:31] LABS: HGB 14.3 g/dL (12.0-15.0); MCHC 32.5 g/dL (32.0-37.0); MCV 95.2 FL (80.0-97.0); Mean Platelet Volume 9.9 FL (9.5-12.2); NRBC Per 100 WBC 0 X 10*3/uL (0.00-0.01); Platelet Count 387 X 10*3/uL (140-440); RBC 4.62 X 10*6/uL (4.10-5.20); RDW 13.5 % (11.5-14.5); WBC 11.16 X 10*3/uL (4.50-10.00)
[2023-10-24 02:32] LABS: Basophils # (A) 0.12 X 10*3/uL (0.00-0.10); Basophils % (A) 1.1 %; Eosinophils # (A) 0.31 X 10*3/uL (0.04-0.35); Eosinophils % (A) 2.8 %; Lymphocytes % (A) 23.3 %; Monocytes # (A) 0.68 X 10*3/uL (0.20-1.00); Monocytes % (A) 6.1 %; Neutrophils # (A) 7.42 X 10*3/uL (1.80-7.70); Neutrophils % (A) 66.4 %
[2023-10-24 03:04] LABS: ALT 19 U/L (8-44); AST 19 U/L (13-35); BUN/Creat Ratio 22.11 Ratio (12.00-20.00); Blood Urea Nitrogen 19.9 mg/dL (9.0-27.0); Chloride 103 mmol/L (96-109); Glucose 148 mg/dL (70-110); Potassium 4.5 mmol/L (3.5-5.5); Sodium 140 mmol/L (135-145); Uric Acid 3.8 mg/dL (2.9-7.7)
[2023-10-24 04:47] LABS: Erythrocyte Sedimentation Rate 4 mm/Hr (0-30)
== END | disposition home or self-care (01) ==
LOC: LABWHC1 16:13
PROVIDERS: ATTEND Family Medicine
DX: E11.65 Type 2 diabetes mellitus with hyperglycemia (principal); M25.531 Pain in right wrist; E78.5 Hyperlipidemia, unspecified
CPT/HCPCS: 36415; 80048; 83036; 84450; 84460; 84550; 85025; 85652

== ENCOUNTER → 2023-12-10 | Outpatient (CLI) | payer MEDICARE, OTHER ==
--- NOTE | 2023-12-10 08:25 | US ---
EXAMINATION TYPE: US Aorta Screening DATE OF EXAM: 12/10/2023 COMPARISON: NONE CLINICAL INDICATION: Female, 78 years old with history of R07.2 STERNUM PAIN R10.13 EPIGASTRIC PAIN; Hx smoker. No HTN. TECHNIQUE: Multiple sonographic images of the abdominal aorta are obtained. FINDINGS: EXAM MEASUREMENTS: Abdominal Aorta: Proximal: 1.9 x 1.8 cm Mid: 1.6 x 1.8 cm Distal: 1.6 x 1.9 cm Bifurcation: Right [place]: 0.6 x 0.7 cm Left [place]: 0.8 x 0.7 cm TAX TECHNICIAN NOTES: No AAA visualized at time of scan. Atherosclerotic changes seen. IMPRESSION: No evidence for abdominal aortic aneurysm.
== END | disposition home or self-care (01) ==
LOC: RADUSWWP 07:57
PROVIDERS: ATTEND Family Medicine
DX: Z13.6 Encounter for screening for cardiovascular disorders (principal); R07.2 Precordial pain; R10.13 Epigastric pain; Z87.891 Personal history of nicotine dependence
CPT/HCPCS: 76706

== ENCOUNTER → 2024-01-06 | Outpatient (CLI) | payer MEDICARE, OTHER ==
[2024-01-06 14:04] LABS: African American GFR (CKD) 83 (>60 ml/min/1.73 sqM); Blood Urea Nitrogen 23 mg/dL (7-17); Non-African American GFR(CKD) 72 (>60 ml/min/1.73 sqM)
--- NOTE | 2024-01-06 15:27 | CT ---
EXAMINATION TYPE: CT ChestAbdPelvis w con CT DLP: 540.8 mGycm, Automated exposure control for dose reduction was used. DATE OF EXAM: 01/06/2024 3:11 PM COMPARISON: Most recent 09/25/2023. CLINICAL INDICATION:Female, 78 years old with history of C34.12 lung ca;, LUNG CANCER Technique: CT ChestAbdPelvis w con; Multiple axial images were obtained. Two-dimensional coronal and sagittal reconstructions were obtained. Contrast used:100 mL of Isovue 300 with IV Contrast, Oral contrast used: with Oral Contrast Findings: CHEST: LUNGS/ PLEURA: Stable right lower lobe superior segment pulmonary nodule measuring 7 mm series 4 imag e 22. Stable right upper lobe 4 mm pulmonary nodule. Mild to moderate centrilobular emphysema changes . Stable appearance of the left upper lobe groundglass pulmonary nodule. AIRWAY: Patent and unremarkable. HEART: Size within normal limits. MEDIASTINUM: No gross evidence of adenopathy. VASCULATURE: No aortic aneurysm. MUSCULOSKELETAL: No acute osseous abnormalities. SOFT TISSUES/LYMPH NODES: Unremarkable. LOWER NECK: Table bilateral thyroid nodules. ABDOMEN: ABDOMEN LIVER: Stable appearing cystic lesions within the liver. GALLBLADDER AND BILE DUCTS: The gallbladder surgically absent. PANCREAS: Unremarkable. SPLEEN: Unremarkable. ADRENAL GLANDS: No significant change in the morphology of the right adrenal gland. Left adrenal glan ds unremarkable. KIDNEYS AND URETERS: No evidence of hydronephrosis or renal calculus. The ureters are unremarkable. Right renal cyst. PELVIS BLADDER: Unremarkable REPRODUCTIVE: Unremarkable. ABDOMEN & PELVIS STOMACH AND BOWEL: No evidence of bowel obstruction. Scattered colonic diverticula. PERITONEUM: No evidence of pneumoperitoneum or free fluid. VASCULATURE: Mild atherosclerotic calcifications are present throughout the abdominal aorta and its b ranches. MUSCULOSKELETAL: No acute osseous abnormalities, post fixation changes at all 5 S1. Hardware appears intact. LYMPH NODES: No gross evidence for lymphadenopathy. SOFT TISSUE/ABDOMINAL WALL: Unremarkable IMPRESSION: No evidence for lymphadenopathy or new or enlarging mass. Stable pulmonary nodules.
== END | disposition home or self-care (01) ==
LOC: RADCTMAIN 13:22
PROVIDERS: ATTEND Internal Medicine Hematology & Oncology
DX: C34.12 Malignant neoplasm of upper lobe, left bronchus or lung (principal); I10 Essential (primary) hypertension; E78.5 Hyperlipidemia, unspecified; E11.9 Type 2 diabetes mellitus without complications; R91.8 Other nonspecific abnormal finding of lung field
CPT/HCPCS: 82565; 84520; 71260; 74177; 36415; Q9967

== ENCOUNTER → 2024-01-23 | Outpatient (CLI) | payer MEDICARE, OTHER ==
--- NOTE | 2024-01-24 16:02 | US ---
EXAMINATION TYPE: US thyroid st tissue head/neck DATE OF EXAM: 01/23/2024 COMPARISON: US 05/10/2023 CLINICAL INDICATION: Female, 79 years old with history of E04.2 NONTOXIC MULTINODULAR GOITER; Patient denies any other signs or symptoms. GLAND SIZE: Right Lobe: 4.5 x 2.1 x 1.9 cm Overall Parenchyma: homogeneous Left Lobe: 4.7 x 1.5 x 1.7 cm Overall Parenchyma: homogeneous Isthmus Thickness: 0.5 cm NODULES RIGHT: # of nodules measured on right: 2 1. 2.0 X 0.9 x 1.5 cm, mid lateral, mixed cystic and solid, hypoechoic TR3 nodule, which is wider t stafford tall, with smooth margins, without echogenic foci. Prior size: 1.9 x 1.0 x 1.4 cm 2. 1.2 X 0.6 x 0.6 cm, upper lateral, solid or almost completely solid, hypoechoic TR4 nodule, whic h is wider than tall, with smooth margins, without echogenic foci. Prior size: 1.0 x 0.8 x 0.6 cm LEFT: # of nodules measured on left: 2 1. 2.1 X 1.2 x 1.3 cm, mid lateral, spongiform, hypoechoic TR3 nodule, which is wider than tall, wi th smooth margins, with echogenic foci. Prior size: 2.0 x 1.0 x 1.4 cm 2. 0.7 X 0.4 x 0.6 cm, upper lateral, cystic or almost completely cystic, hypoechoic TR3 nodule, w hich is wider than tall, with smooth margins, without echogenic foci. Prior size: 0.5 x 0.3 x 0.5 cm ISTHMUS: # of nodules measured in the isthmus: 0 Bilateral neck scanned, no evidence of lymphadenopathy. IMPRESSION: 1. Correlate for multinodular goiter. 2. A TR4 nodule on the right is minimally larger at 1.2 cm versus 1.0 cm, previously. 3. Other nodules are fairly stable. 2017 ACR TI-RADS LEVEL: TR-RADS 4 - Moderately Suspicious: Follow if > 1 cm, FNA if > 1.5 cm *Highest TI-RADS level nodule reported
== END | disposition home or self-care (01) ==
LOC: RADUSWWP 13:55
PROVIDERS: ATTEND Family Medicine
DX: E04.2 Nontoxic multinodular goiter (principal)
CPT/HCPCS: 76536

== ENCOUNTER 2024-03-28 16:03 | Emergency (ER) | payer MEDICARE, OTHER ==
--- NOTE | 2024-03-28 16:17 | ED ---
Nausea/Vomiting/Diarrhea HPI - General Chief complaint: Nausea/Vomiting/Diarrhea Stated complaint: Nausea, Vomiting Time Seen by Provider: 03/28/24 16:12 Source: EMS, RN notes reviewed, old records reviewed Mode of arrival: EMS Limitations: no limitations - History of Present Illness Initial comments: This is a 79-year-old female to the ER for evaluation today. Patient presents today for evaluation regards to significant sudden onset of nausea vomiting MD complaint: nausea, vomiting, abdominal pain -: minutes(s) Description of Vomiting: food contents Description of Diarrhea: water Location: diffuse, periumbilical Radiation: none Severity: severe Severity scale (1-10): 9 Quality: stabbing Consistency: constant Improves with: none Worsens with: none - Related Data Home Medications Medication Instructions Recorded Confirmed DULoxetine HCL 30 mg PO QAM 09/29/15 11/29/21 Omeprazole [PriLOSEC] 20 mg PO AC-BRKFST PRN 09/29/15 11/29/21 glipiZIDE [Glipizide Xl] 5 mg PO DAILY 09/29/15 11/29/21 metFORMIN HCL 500 mg PO BID 09/29/15 11/29/21 Morphine Sulfate [Morphine Sulfate 30 mg PO Q12H 09/15/21 11/29/21 ER] oxyCODONE HCL/ACETAMINOPHEN 1 tab PO BID PRN 09/15/21 11/29/21 [Percocet 10-325 mg] Albuterol Sulfate [Albuterol 1 puff PO QID PRN 11/29/21 11/29/21 Sulfate Hfa] Atorvastatin [Lipitor] 20 mg PO HS 11/29/21 11/29/21 Eszopiclone [Lunesta] 2 mg PO HS PRN 11/29/21 11/29/21 Gabapentin 300 mg PO TID PRN 11/29/21 11/29/21 dronabinoL [Marinol] 2.5 mg PO PC-BID 11/29/21 11/29/21 rOPINIRole HCL [Requip] 0.5 mg PO HS PRN 11/29/21 11/29/21 Allergies Allergy/AdvReac Type Severity Reaction Status Date / Time adhesive Allergy SKIN Verified 12/06/21 09:18 BLISTERS codeine AdvReac Nausea & Verified 12/06/21 09:18 Vomiting Review of Systems ROS Statement: Those systems with pertinent positive or pertinent negative responses have been documented in the HPI. ROS Other: All systems not noted in ROS Statement are negative. Past Medical History Past Medical History: Cancer, Diabetes Mellitus, Hyperlipidemia, Hypertension, Skin Disorder Additional Past Medical History / Comment(s): ECZEMA,HTN-NO LONGER ON MEDS, 5 THYROID NODULES. 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" History of Any Multi-Drug Resistant Organisms: None Reported Past Surgical History: Back Surgery, Section, Cholecystectomy, Tonsillectomy Additional Past Surgical History / Comment(s): CAGE W/ SCREWS TO BACK, Past Anesthesia/Blood Transfusion Reactions: No Reported Reaction Additional Past Anesthesia/Blood Transfusion Reaction / Comment(s): "partially paralyzed vocal cord" states has had "tube" down throat with no difficulty Past Psychological History: Anxiety, Depression Smoking Status: Former smoker Past Alcohol Use History: None Reported Past Drug Use History: None Reported - Past Family History Mother Family Medical History: Cancer Additional Family Medical History / Comment(s): lung Sister(s) Family Medical History: Cancer Father Family Medical History: Myocardial Infarction (MS) General Exam Limitations: no limitations General appearance: alert, in no apparent distress Head exam: Present: atraumatic, normocephalic, normal inspection Eye exam: Present: normal appearance, PERRL, EOMI. Absent: scleral icterus, conjunctival injection, periorbital swelling ENT exam: Present: normal exam, mucous membranes moist Neck exam: Present: normal inspection. Absent: tenderness, meningismus, lymph adenopathy Respiratory exam: Present: normal lung sounds bilaterally. Absent: respiratory distress, wheezes, rales, rhonchi, stridor Cardiovascular Exam: Present: regular rate, normal rhythm, normal heart sounds. Absent: systolic murmur, diastolic murmur, rubs, gallop, clicks GI/Abdominal exam: Present: soft, normal bowel sounds. Absent: distended, tenderness, guarding, rebound, rigid Extremities exam: Present: normal inspection, full ROM, normal capillary refill. Absent: tenderness, pedal edema, joint swelling, calf tenderness Back exam: Present: normal inspection Neurological exam: Present: alert, oriented X3, CN II-XII intact Psychiatric exam: Present: normal affect, normal mood Skin exam: Present: warm, dry, intact, normal color. Absent: rash Course Vital Signs 03/28/24 03/28/24 16:05 21:35 Temperature 98.3 F 98.1 F Pulse Rate 84 86 Respiratory 18 18 Rate Blood Pressure 170/93 139/90 O2 Sat by Pulse 98 96 Oximetry - Reevaluation(s) Reevaluation #1: 03/28/24 16:40 Medical records reviewed Reevaluation #2: 03/28/24 21:18 Patient symptoms are improved here in the ER Reevaluation #3: 03/28/24 21:19 Patient informed of results questions answered, patient prefers discharge Reevaluation #4: 03/28/24 16:40 Was pt. sent in by a medical professional or institution (, [facility], DRUG SAFETY ASSOCIATE, urgent care, hospital, or residential...) When possible be specific @ -no Did you speak to anyone other than the patient for history (EMS, parent, family, police, friend...)? What history was obtained from this source @ -no Did you review nursing and triage notes (agree or disagree)? Why? @ -agree Are old charts reviewed (outside hosp., previous admission, EMS record, old EKG, old radiological studies, urgent care reports/EKG's, residential records)? Report findings @ -yes Differential Diagnosis (chest pain, altered mental status, abdominal pain women, abdominal pain men, vaginal bleeding, weakness, fever, dyspnea, syncope, headache, dizziness, GI bleed, back pain, seizure, CVA, palpatations, mental health, musculoskeletal)? @ -prior EKG interpreted by me (3pts min.). @ -yes X-rays interpreted by me (1pt min.). @ -Yes negative for acute disease CT interpreted by me (1pt min.). @ -yes negative for acute disease U/S interpreted by me (1pt. min.). @ -no What testing was considered but not performed or refused? (CT, X-rays, U/S, labs)? Why? @ -none What meds were considered but not given or refused? Why? @ -none Did you discuss the management of the patient with other professionals (professionals i.e. , PA, DRUG SAFETY ASSOCIATE, lab, RT, psych nurse, social work faculty member, housekeeper caregiver, teacher, workplace rehabilitation officer, hospice case manager)? Give summary @ -no Was smoking cessation discussed for >3mins.? @ -no Was critical care preformed (if so, how long)? @ -no Were there social determinants of health that impacted care today? How? (Homelessness, low income, unemployed, alcoholism, drug addiction, transportation, low edu. Level, literacy, decrease access to med. care, custodial, rehab)? @ -none Was there de-escalation of care discussed even if they declined (Discuss DNR or withdrawal of care, Hospice)? DNR status @ -no What co-morbidities impacted this encounter? (DM, HTN, Smoking, COPD, CAD, Cancer, CVA, ARF, Chemo, Hep., AIDS, mental health diagnosis, sleep apnea, morbid obesity)? @ -none Was patient admitted / discharged? Hospital course, mention meds given and route, prescriptions, significant lab abnormalities, going to OR and other pertinent info. @ - 79 female to ER for evaluation of sudden onset of nausea vomiting significant, patient has mild abdominal pain and cramping no acute findings on CT scan. Lab tests are improved and patient can be discharged home Discharge Undiagnosed new problem with uncertain prognosis? @ -no Drug Therapy requiring intensive monitoring for toxicity (Heparin, Nitro, Insulin, Cardizem)? @ -no Were any procedures done? @ -no Diagnosis/symptom? @ -Abdominal pain with nausea and vomiting Acute, or Chronic, or Acute on Chronic? @ -Acute Uncomplicated (without systemic symptoms) or Complicated (systemic symptoms)? @ -Complicated Side effects of treatment? @ -no Exacerbation, Progression, or Severe Exacerbation? @ -exacerbation Poses a threat to life or bodily function? How? (Chest pain, USA, MS, pneumonia, PE, COPD, DKA, ARF, appy, cholecystitis, CVA, Diverticulitis, Homicidal, Suicidal, threat to staff... and all critical care pts) @ -yes extremes of age Reevaluation #5: Differential Abdominal Pain Women: Appendicitis, Cholecystitis, diverticulosis, ischemic bowel, pancreatitis, hepatitis, UTI, gastroenteritis, AAA, incarcerated hernia, bowel obstruction, constipation, inflammatory bowel, hepatitis, peptic ulcer disease, splenic infarction, perforated viscus, vulvitis, ovarian torsion, PID, kidney stone, p lacenta abruption, this is not meant to be an all-inclusive list Medical Decision Making - Medical Decision Making 79 female to ER for evaluation of sudden onset of nausea vomiting significant, patient has mild abdominal pain and cramping no acute findings on CT scan. Lab tests are improved and patient can be discharged home - Lab Data Result diagrams: 03/28/24 16:25 03/28/24 17:00 Lab Results 03/28/24 03/28/24 03/28/24 Range/Units 16:25 16:25 16:25 WBC 27.6 H (3.8-10.6) k/uL RBC 4.94 (3.80-5.40) m/uL Hgb 16.2 H (11.4-16.0) gm/dL Hct 48.3 H (34.0-46.0) % MCV 97.8 (80.0-100.0) fL MCH 32.7 (25.0-35.0) pg MCHC 33.4 (31.0-37.0) g/dL RDW 13.3 (11.5-15.5) % Plt Count 390 (150-450) k/uL MPV 7.9 Neutrophils % 87 % Lymphocytes % 5 % Monocytes % 7 % Eosinophils % 0 % Basophils % 0 % Neutrophils # 23.9 H (1.3-7.7) k/uL Lymphocytes # 1.4 (1.0-4.8) k/uL Monocytes # 1.9 H (0-1.0) k/uL Eosinophils # 0.1 (0-0.7) k/uL Basophils # 0.1 (0-0.2) k/uL PT 11.3 (10.0-12.5) sec INR 1.0 (<1.2) APTT 18.6 L (22.0-30.0) sec Sodium (137-145) mmol/L Potassium (3.5-5.1) mmol/L Chloride (98-107) mmol/L Carbon Dioxide (22-30) mmol/L Anion Gap mmol/L BUN (7-17) mg/dL Creatinine (0.52-1.04) mg/dL Est GFR (CKD-EPI)AfAm (>60 ml/min/1.73 sqM) Est GFR (CKD-EPI)NonAf (>60 ml/min/1.73 sqM) Glucose (74-99) mg/dL Plasma Lactic Acid Jackson 1.5 (0.7-2.0) mmol/L Calcium (8.4-10.2) mg/dL Phosphorus (2.5-4.5) mg/dL Magnesium (1.6-2.3) mg/dL Total Bilirubin (0.2-1.3) mg/dL AST (14-36) U/L ALT (4-34) U/L Alkaline Phosphatase (38-126) U/L Troponin I (0.000-0.034) ng/mL NT-Pro-B Natriuret Pep pg/mL Total Protein (6.3-8.2) g/dL Albumin (3.5-5.0) g/dL Urine Color Urine Appearance (Clear) Urine pH (5.0-8.0) Ur Specific [place] (1.001-1.035) Urine Protein (Negative) Urine Glucose (UA) (Negative) Urine Ketones (Negative) Urine Blood (Negative) Urine Nitrite (Negative) Urine Bilirubin (Negative) Urine Urobilinogen (<2.0) mg/dL Ur Leukocyte Esterase (Negative) 03/28/24 03/28/24 03/28/24 Range/Units 17:00 17:00 19:26 WBC (3.8-10.6) k/uL RBC (3.80-5.40) m/uL Hgb (11.4-16.0) gm/dL Hct (34.0-46.0) % MCV (80.0-100.0) fL MCH (25.0-35.0) pg MCHC (31.0-37.0) g/dL RDW (11.5-15.5) % Plt Count (150-450) k/uL MPV Neutrophils % % Lymphocytes % % Monocytes % % Eosinophils % % Basophils % % Neutrophils # (1.3-7.7) k/uL Lymphocytes # (1.0-4.8) k/uL Monocytes # (0-1.0) k/uL Eosinophils # (0-0.7) k/uL Basophils # (0-0.2) k/uL PT (10.0-12.5) sec INR (<1.2) APTT (22.0-30.0) sec Sodium 136 L (137-145) mmol/L Potassium 4.0 (3.5-5.1) mmol/L Chloride 108 H (98-107) mmol/L Carbon Dioxide 19 L (22-30) mmol/L Anion Gap 9 mmol/L BUN 22 H (7-17) mg/dL Creatinine 0.61 (0.52-1.04) mg/dL Est GFR (CKD-EPI)AfAm >90 (>60 ml/min/1.73 sqM) Est GFR (CKD-EPI)NonAf 88 (>60 ml/min/1.73 sqM) Glucose 255 H (74-99) mg/dL Plasma Lactic Acid Jackson (0.7-2.0) mmol/L Calcium 9.2 (8.4-10.2) mg/dL Phosphorus 3.2 (2.5-4.5) mg/dL Magnesium 1.6 (1.6-2.3) mg/dL Total Bilirubin 0.4 (0.2-1.3) mg/dL AST 26 (14-36) U/L ALT 21 (4-34) U/L Alkaline Phosphatase 68 (38-126) U/L Troponin I <0.012 (0.000-0.034) ng/mL NT-Pro-B Natriuret Pep 105 pg/mL Total Protein 6.6 (6.3-8.2) g/dL Albumin 4.0 (3.5-5.0) g/dL Urine Color Colorless Urine Appearance Clear (Clear) Urine pH 6.0 (5.0-8.0) Ur Specific [place] 1.044 H (1.001-1.035) Urine Protein Negative (Negative) Urine Glucose (UA) 4+ H (Negative) Urine Ketones Negative (Negative) Urine Blood Negative (Negative) Urine Nitrite Negative (Negative) Urine Bilirubin Negative (Negative) Urine Urobilinogen <2.0 (<2.0) mg/dL Ur Leukocyte Esterase Negative (Negative) - EKG Data -: EKG Interpreted by Me (EKG is sinus 99 SD 143 QRS 92 QTc 399) - Radiology Data Radiology results: report reviewed (CT abdomen pelvis is negative for acute disease does show possible diarrheal illness), image reviewed Disposition Clinical Impression: Dehydration, Gastroenteritis Disposition: HOME SELF-CARE Condition: Good Instructions (If sedation given, give patient instructions): Acute Nausea and Vomiting (ED) Is patient prescribed a controlled substance at d/c from ED?: No Referrals: Jermaine Salgado DO [Primary Care Provider] - 1-2 days Time of Disposition: 21:00
[2024-03-28 16:44] LABS: Basophils # (A) 0.1 k/uL (0-0.2); Basophils % (A) 0 %; Eosinophils # (A) 0.1 k/uL (0-0.7); Eosinophils % (A) 0 %; HCT 48.3 % (34.0-46.0); HGB 16.2 gm/dL (11.4-16.0); Lymphocytes # (A) 1.4 k/uL (1.0-4.8); Lymphocytes % (A) 5 %; MCH 32.7 pg (25.0-35.0); MCHC 33.4 g/dL (31.0-37.0); MCV 97.8 fL (80.0-100.0); Mean Platelet Volume 7.9; Monocytes # (A) 1.9 k/uL (0-1.0); Monocytes % (A) 7 %; Neutrophils # (A) 23.9 k/uL (1.3-7.7); Neutrophils % (A) 87 %; Platelet Count 390 k/uL (150-450); RBC 4.94 m/uL (3.80-5.40); RDW 13.3 % (11.5-15.5); WBC 27.6 k/uL (3.8-10.6)
[2024-03-28 16:51] VITALS: RESP 18
[2024-03-28] MEDS: ONDANSETRON 4 MG/2 ML VIAL IVP STA (16:53)
[2024-03-28] MEDS: SODIUM CHLORIDE 0.9% 1,000 ML IV STA (16:53)
[2024-03-28 16:58] LABS: Prothrombin Time 11.3 sec (10.0-12.5)
[2024-03-28 17:04] LABS: Partial Thromboplastin Time 18.6 sec (22.0-30.0)
[2024-03-28 17:28] LABS: ALT 21 U/L (4-34); AST 26 U/L (14-36); African American GFR (CKD) >90 (>60 ml/min/1.73 sqM); Alkaline Phosphatase 68 U/L (38-126); Anion Gap 9 mmol/L; Blood Urea Nitrogen 22 mg/dL (7-17); Calcium 9.2 mg/dL (8.4-10.2); Carbon Dioxide 19 mmol/L (22-30); Chloride 108 mmol/L (98-107); Glucose 255 mg/dL (74-99); Magnesium 1.6 mg/dL (1.6-2.3); Non-African American GFR(CKD) 88 (>60 ml/min/1.73 sqM); Phosphorus 3.2 mg/dL (2.5-4.5); Sodium 136 mmol/L (137-145); Total Bilirubin 0.4 mg/dL (0.2-1.3); Total Protein 6.6 g/dL (6.3-8.2)
[2024-03-28 17:35] LABS: NT-Pro-B-Type Natriuretic Pept 105 pg/mL
--- NOTE | 2024-03-28 18:25 | CT ---
EXAMINATION TYPE: CT abdomen pelvis w con CT DLP: 645.2 mGycm, Automated exposure control for dose reduction was used. DATE OF EXAM: 03/28/2024 6:02 PM COMPARISON: CT abdomen pelvis most recent from multiple studies dating back to 11/25/2022. CLINICAL INDICATION:Female, 79 years old with history of nv; N/V. Stage 4 Lung CA. TECHNIQUE: Axial CT abdomen pelvis w con;Sagittal and coronal reformats were created on a separate w orkstation. Contrast used:100ml mL of Isovue 300 with IV Contrast, (none if empty) Oral contrast used: without Oral Contrast (none if empty) FINDINGS: LOWER CHEST: Centrilobular emphysema changes.r right lower lobe elongated nodule measuring 10 x 5 mm stable from 09/25/2023. ABDOMEN LIVER: Low-density area near the falciform ligament measuring 27 x 14 mm which is similar to prior on of at least 09/25/2023 given differences in technique GALLBLADDER AND BILE DUCTS: Gallbladder is surgically absent with mild intrahepatic and extra hepatic biliary dilatation likely physiologic and a postcholecystectomy change. No evidence of choledocholit hiasis. PANCREAS: Unremarkable. SPLEEN: Unremarkable. ADRENAL GLANDS: Unremarkable. KIDNEYS AND URETERS: Nonobstructing 3 mm renal calculi. No right renal calculi. No hydronephrosis dariel aterally. Simple appearing renal cysts. PELVIS BLADDER: Unremarkable REPRODUCTIVE: Unremarkable. ABDOMEN & PELVIS STOMACH AND BOWEL: No evidence of bowel obstruction. Second portion duodenal diverticulum. Colonic di verticula. Moderate amount stool in the rectum and distal sigmoid colon. PERITONEUM/RETROPERITONEUM: No evidence of pneumoperitoneum or free fluid. VASCULATURE: No evidence of aortic aneurysm. MUSCULOSKELETAL: No acute osseous abnormalities, fixation hardware L5-S1. Hardware appears intact. LYMPH NODES: No gross evidence for lymphadenopathy. SOFT TISSUE/ABDOMINAL WALL: Unremarkable IMPRESSION: 1. No evidence for acute abdominal process. No evidence for bowel obstruction. There is moderate sto ol contents within the sigmoid colon of formed feces in watery stool in the right colon.. 2. Stable appearing right lower lobe pulmonary nodule and left hepatic lobe low-density area. No jolie dence for lymphadenopathy.
--- NOTE | 2024-03-28 19:45 | XR ---
EXAMINATION TYPE: XR chest 1V DATE OF EXAM: 03/28/2024 7:10 PM CLINICAL INDICATION:Female, 79 years old with history of nv; COMPARISON: Chest radiographs from 09/19/2021 TECHNIQUE: XR chest 1V Frontal view of the chest. FINDINGS: Lungs/Pleura: There is no evidence of pleural effusion, focal consolidation, or pneumothorax. Pulmonary vascularity: Unremarkable. Heart/mediastinum: Cardiomediastinal silhouette is unremarkable. Musculoskeletal: No acute osseous pathology. IMPRESSION: No acute cardiopulmonary disease/process.
[2024-03-28 20:19] LABS: Appearance,Urine Clear (Clear); Bilirubin,Urine Negative (Negative); Blood,Urine Negative (Negative); Color,Urine Colorless; Glucose,Urine (UA) 4+ (Negative); Ketones,Urine Negative (Negative); Leukocyte Esterase,Urine Negative (Negative); Nitrite,Urine Negative (Negative); Protein,Urine Negative (Negative); Specific Gravity,Urine 1.044 (1.001-1.035); Urobilinogen,Urine <2.0 mg/dL (<2.0)
[2024-03-28] MEDS: ONDANSETRON 4 MG ODT STARTER PACK 2 TAB BTL PO STA (21:32)
[2024-03-28 22:18] VITALS: BP 139/90; PULSE 86; TEMP 98.1
== END 2024-03-28 21:36 | disposition home or self-care (01) ==
LOC: EC 16:03
DX: E86.0 Dehydration (principal); K52.9 Noninfective gastroenteritis and colitis, unspecified; Z87.891 Personal history of nicotine dependence
CPT/HCPCS: 36415; 93005; 83880; 80053; 83605; 83735; 84100; 84484; 85025; 85610; 85730; 81003; 71045; 74177; 99285; 96374; 96361; J2405; S0119; Q9967

== ENCOUNTER → 2024-04-15 | Outpatient (CLI) | payer MEDICARE, OTHER ==
[2024-04-15 10:56] LABS: African American GFR (CKD) >90 (>60 ml/min/1.73 sqM); Blood Urea Nitrogen 19 mg/dL (7-17); Non-African American GFR(CKD) 85 (>60 ml/min/1.73 sqM)
--- NOTE | 2024-04-17 16:14 | CT ---
EXAMINATION TYPE: CT Chest Abd Pelvis w con CT DLP: 561.1 mGycm, Automated exposure control for dose reduction was used. DATE OF EXAM: 04/15/2024 12:13 PM COMPARISON: 01/06/2024 CLINICAL INDICATION:Female, 79 years old with history of C34.31 MALIGNANT NEOPLASM OF LOWER LOBE, RIG HT BRO; PHH, FOLLOW UP LUNG CA Technique: CT Chest Abd Pelvis w con; Multiple axial images were obtained. Two-dimensional coronal an d sagittal reconstructions were obtained. Contrast used:100 mL of Isovue 300 with IV Contrast, Oral contrast used: with Oral Contrast Findings: CHEST: LUNGS/ PLEURA: Stable appearance of the left upper lobe solid spiculated scarlike lesion. Stable or s lightly small.. Current measurement is 17 mm x 27 mm. . Previous measurement 16 x 32 mm. Small groun dglass nodule, lateral, peripheral is stable. Stable 7 millimeter Right lower lobe superior segment p ulmonary nodule measuring 7 mm, series 4, image 26 on current. Previously seen on series 4 image 22. Stable right upper lobe 4 mm pulmonary nodule. Moderate centrilobular emphysema. AIRWAY: Patent and unremarkable. HEART: Size within normal limits. MEDIASTINUM: No gross evidence of adenopathy. VASCULATURE: No aortic aneurysm. MUSCULOSKELETAL: No acute osseous abnormalities. SOFT TISSUES/LYMPH NODES: Unremarkable. LOWER NECK: No significant findings. ABDOMEN: ABDOMEN LIVER: Unremarkable GALLBLADDER AND BILE DUCTS: Cholecystectomy clips at gallbladder fossa. Previously noted PANCREAS: Unremarkable. SPLEEN: Unremarkable. ADRENAL GLANDS: Stable nodular appearance of right adrenal. The left gland is unremarkable. KIDNEYS AND URETERS: No evidence of hydronephrosis or renal calculus. The ureters are unremarkable. PELVIS BLADDER: Unremarkable REPRODUCTIVE: Unremarkable. ABDOMEN & PELVIS STOMACH AND BOWEL: Stomach and duodenum are unremarkable. No evidence of bowel obstruction. PERITONEUM: No evidence of pneumoperitoneum or free fluid. VASCULATURE: No evidence of aortic aneurysm. MUSCULOSKELETAL: No acute osseous abnormalities LYMPH NODES: No gross evidence for lymphadenopathy. SOFT TISSUE/ABDOMINAL WALL: Unremarkable IMPRESSION: No evidence for lymphadenopathy or new or enlarging mass. Stable pulmonary nodules. Follow up recommendations for incidental pulmonary nodules are per [employer] or [employer].
== END | disposition home or self-care (01) ==
LOC: RADCTMAIN 10:14
PROVIDERS: ATTEND Internal Medicine
DX: C34.12 Malignant neoplasm of upper lobe, left bronchus or lung (principal); C34.31 Malignant neoplasm of lower lobe, right bronchus or lung; R91.8 Other nonspecific abnormal finding of lung field; E78.5 Hyperlipidemia, unspecified; E11.9 Type 2 diabetes mellitus without complications; R06.02 Shortness of breath
CPT/HCPCS: 82565; 84520; 71260; 74177; 36415; Q9967

== ENCOUNTER → 2024-04-30 | Outpatient (CLI) | payer MEDICARE, OTHER ==
--- NOTE | 2024-05-01 18:49 | MM ---
Reason for Exam: Screening (asymptomatic). Last screening mammogram was performed 12 month(s) ago. Patient History: Menarche at age 14. First Full-Term at age 21. Postmenopausal. Patient has history of breast feeding. Cyst Aspiration on the Right side. Cyst Aspiration on the Left side. Cyst Aspiration on the Right side. Cyst Aspiration on the Left side. 05/15/2000, Excisional Biopsy on the Right side. Maternal grandmother had breast cancer, age 58. Risk Values: Paula 5 year model risk: 1.5%. NCI Lifetime model risk: 2.9%. Prior Study Comparison: 05/09/2018 Bilateral Screening Mammogram, [facility]. 04/26/2022 Bilateral MG 3D screening mammo w/cad, [facility]. 04/29/2023 Bilateral MG 3D screening mammo w/cad, [facility]. Tissue Density: There are scattered areas of fibroglandular density. Findings: Analyzed By CAD. The pattern is symmetrical. Pattern appears stable. Cervical calcifications are within the left breast. Benign round calcifications present bilaterally. No suspicious groups of microcalcifications, spiculated or lobular masses, architectural distortion or other secondary signs of malignancy are mammographically apparent. Overall Assessment: Benign, BI-RAD 2 Management: Screening Mammogram of both breasts in 1 year. A negative mammogram report should not preclude additional follow up of suspicious palpable abnormalities. Patient should continue monthly self breast exam. A clinical breast exam by your physician is recommended on an annual basis and results should be correlated with mammographic findings. Note on Paula scores and lifetime risk: 1. A Paula score greater than 3% is considered moderate risk. If this is the case, consider specialist referral to assess eligibility for a risk reducing agent. 2. If overall lifetime risk for the development of breast cancer is 20% or higher, the patient may qualify for future screening with alternating mammogram and breast MRI. Electronically signed and approved by: Jermaine Lopez D.O. Radiologis
== END | disposition home or self-care (01) ==
LOC: RADMAMWWP 12:44
PROVIDERS: ATTEND Family Medicine
DX: Z12.31 Encounter for screening mammogram for malignant neoplasm of breast (principal); Z78.0 Asymptomatic menopausal state; Z80.3 Family history of malignant neoplasm of breast
CPT/HCPCS: 77063; 77067

== ENCOUNTER → 2024-07-27 | Outpatient (CLI) | payer MEDICARE, OTHER ==
[2024-07-27 12:29] LABS: African American GFR (CKD) >90 (>60 ml/min/1.73 sqM); Blood Urea Nitrogen 20 mg/dL (7-17); Non-African American GFR(CKD) 85 (>60 ml/min/1.73 sqM)
--- NOTE | 2024-07-27 13:55 | CT ---
EXAMINATION TYPE: CT ChestAbdPelvis w con DATE OF EXAM: 07/27/2024 COMPARISON: 04/15/2024, 01/06/2024 HISTORY: 79-year-old female C34.12 f/u lung ca TECHNIQUE: Contiguous axial scanning of the chest, abdomen, and pelvis performed with IV Contrast, pa tient injected with 100 mL of Isovue 300. Delayed images through the kidneys were obtained. Coronal/s agittal reconstructions performed. CT DLP: 932 mGycm Automated exposure control for dose reduction was used. FINDINGS: Chest: Heart is normal size without pericardial effusion. Aorta with minimal arch calcifications and conventional arch vessel branching anatomy. Redemonstrated 1.2 cm hypodense nodule left lobe of the thyroid gland. No thoracic lymphadenopathy by CT size criteria. Biapical pleural parenchymal scarring and background moderate emphysematous change. No consolidation or pleural effusion. 3.4 x 1.6 cm opacity medial left upper lobe versus 3.5 x 1.7 cm, previously, not significantly change d. A 6 mm nodule at the lateral right mid lung favored to be benign though not clearly seen previously g iven its location along the major fissure. Short interval follow-up to reassess. Focal patchy opacity posterior right costophrenic angle is unchanged as is an elongated 1.1 cm nodule . Small patch of groundglass lateral right midlung is unchanged. Other scattered 7 mm and smaller nodules remain unchanged. Mild circumferential wall thickening distal esophagus. Correlate for any symptoms of esophagitis. ABDOMEN: Similar dilated bile duct up to 1.1 cm and mild intrahepatic biliary ductal dilatation. Scattered hep atic cysts measuring up to 1.1 cm also remain unchanged. Cholecystectomy clips. Portal venous system is patent. There is a 2.9 cm duodenal diverticulum noted. Mild thickening of the bilateral adrenal glands is similar without discrete nodularity. A couple benign renal cortical cysts measuring up to 1.2 cm on the right. Spleen and atrophic pancreas show no gross abnormality. Moderate atherosclerotic calcifications infrarenal abdominal aorta and iliac arteries. There is diffuse jejunal fold thickening and mild dilatation of 3.2 cm. Focal thickening extends to i nvolve the third and fourth portion of the duodenum as well. Normal appendix. However, there is concurrent moderate circumferential wall thickening extending to i nvolve the entire colon and rectum. Minimal scattered stool. Left-sided colonic diverticulosis greate st in the sigmoid colon. No free air or free fluid. No mesenteric or retroperitoneal adenopathy. Pelvis: Bladder urine distended. Uterus anteverted. Both ovaries are visualized. No abnormal fluid collection the pelvis or pelvic lymphadenopathy. Pelvic floor relaxation. Bones: Previous L4-L5 posterior and interbody lumbar fusion. Degenerative grade 1 retrolisthesis T12-L1. No osseous destructive process seen. IMPRESSION: 1. ESSENTIALLY STABLE 3.4 X 1.6 CM OPACITY, PROBABLE SITE OF TREATED DISEASE MEDIAL LEFT UPPER LOBE. 2. A 6 MM PULMONARY NODULE AT THE LATERAL RIGHT MIDLUNG, AXIAL IMAGE 34, IS NEW THOUGH A BENIGN ETIOL OGY IS SUSPECTED GIVEN ITS LOCATION ALONG THE MAJOR FISSURE. ATTENTION ON FOLLOW-UP. OTHERWISE, SCATT ERED 7 MM SMALLER PULMONARY NODULES ARE UNCHANGED. BACKGROUND COPD WITH MODERATE EMPHYSEMA. 3. DIFFUSE JEJUNAL FOLD THICKENING WITH SEGMENTS OF MILD DILATATION UP TO 3.2 CM. FOLD THICKENING ALS O INVOLVES THE DUODENUM AND ENTIRE COLON. CORRELATE FOR A MODERATE INFECTIOUS OR INFLAMMATORY ENTEROC OLITIS. 4. LEFT-SIDED COLONIC DIVERTICULOSIS WITHOUT ACUTE DIVERTICULITIS. [facility], , 07/27/2024 1:52 PM
== END | disposition home or self-care (01) ==
LOC: RADCTMAIN 10:56
PROVIDERS: ATTEND Internal Medicine
DX: C34.12 Malignant neoplasm of upper lobe, left bronchus or lung
CPT/HCPCS: 36415; 71260; 74177; 82565; 84520

== ENCOUNTER 2024-10-12 06:03 | Day surgery (SDC) | payer MEDICARE, OTHER ==
[2024-10-12] MEDS ORDERED: ZOLPIDEM 5 MG TAB PO PRN (06:07)
[2024-10-12] MEDS ORDERED: HEPARIN SODIUM,PORCINE 10,000 UNIT in SODIUM CHLORIDE 0.9% 1,000 ML IRRIGATION PRN (06:07)
[2024-10-12] MEDS ORDERED: ALPRAZolam 0.25 MG TAB PO PRN (06:07)
[2024-10-12] MEDS ORDERED: HEPARIN SODIUM,PORCINE (1 ML) 2,500 UNIT in SODIUM CHLORIDE 0.9% 250 ML IRRIGATION PRN (06:07)
[2024-10-12] MEDS: IV FLUID CONTINUATION 1,000 ML IV ONE (06:30)
[2024-10-12] MEDS: INSULIN ASPART (NovoLOG) 100 UNIT/ML VIAL SQ ONE (06:46)
[2024-10-12] MEDS: EMPTY BAG 1 BAG with SODIUM CHLORIDE 0.9% 1,000 ML IV SCH (06:47)
[2024-10-12 06:52] LABS: Basophils # (A) 0.1 k/uL (0-0.2); Basophils % (A) 1 %; Eosinophils # (A) 0.5 k/uL (0-0.7); Eosinophils % (A) 5 %; HCT 45.1 % (34.0-46.0); Lymphocytes # (A) 2.4 k/uL (1.0-4.8); Lymphocytes % (A) 25 %; MCH 32.9 pg (25.0-35.0); MCHC 33.3 g/dL (31.0-37.0); MCV 98.8 fL (80.0-100.0); Mean Platelet Volume 10.9; Monocytes # (A) 0.8 k/uL (0-1.0); Monocytes % (A) 8 %; Neutrophils # (A) 5.7 k/uL (1.3-7.7); Neutrophils % (A) 59 %; Platelet Count 262 k/uL (150-450); RBC 4.56 m/uL (3.80-5.40); RDW 12.5 % (11.5-15.5); WBC 9.6 k/uL (3.8-10.6)
[2024-10-12 06:54] LABS: Glucose,Whole Blood 226 mg/dL (70-110)
[2024-10-12 07:21] LABS: African American GFR (CKD) >90 (>60 ml/min/1.73 sqM); Anion Gap 7 mmol/L; Blood Urea Nitrogen 20 mg/dL (7-17); Calcium 9.3 mg/dL (8.4-10.2); Carbon Dioxide 22 mmol/L (22-30); Chloride 108 mmol/L (98-107); Glucose 234 mg/dL (74-99); Non-African American GFR(CKD) 84 (>60 ml/min/1.73 sqM); Potassium 4.1 mmol/L (3.5-5.1); Sodium 137 mmol/L (137-145)
[2024-10-12 07:22] VITALS: RESP 16; TEMP 97.6
[2024-10-12] MEDS: VERAPAMIL SYRINGE (5 MG/10 ML) INTRAARTER ONE (07:47)
[2024-10-12] MEDS: NITROGLYCERIN 1000MCG/10ML SYRINGE INTRAARTER ONE (07:47)
[2024-10-12] MEDS: LIDOCAINE 1% INJ 10MG/ML (20 ML MDV) SQ ONE (07:47)
[2024-10-12] MEDS: HEPARIN SODIUM 1,000 UN/ML (10ML VL) MISCELLANE ONE (07:47)
[2024-10-12] MEDS: fentaNYL (PF) 50 MCG/1 ML VIAL IVP ONE (07:48)
[2024-10-12] MEDS: MIDAZOLAM 2 MG/2 ML VIAL IVP ONE (07:48)
[2024-10-12] MEDS: IOPAMIDOL-370 100ML BTL INJ ONE ×2 (08:15→08:16)
--- NOTE | 2024-10-12 08:20 | P.OP ---
Date of Procedure: 10/12/24 Description of Procedure: Preoperative diagnosis: Disabling claudication, [place] classification 3 Postop diagnosis: Bilateral SFA occlusion with reconstitution above-knee popliteal artery. One-vessel runoff bilaterally right anterior tibial and left posterior tibial arteries Procedure: Aortogram with bilateral lower extremity runoffs via left radial artery access under ultrasound guidance Surgeon: Claudia Anesthesia: Moderate sedation times 31 minutes Estimated blood loss: 5 cc Complications: None Condition: Stable Findings: Aorta: Patent without any significant stenosis Iliacs: Bilateral common iliac, internal iliac and external iliac arteries are patent with some atherosclerotic disease but no evidence of significant stenosis. Femorals: Bilateral common, profundus femoris arteries are patent without any significant stenosis. Bilateral SFA vessels are occluded just after the takeoff with reconstitution above-knee popliteal artery. Popliteal: Bilateral popliteal arteries are patent without any significant stenosis with some mild atherosclerotic disease throughout. Tibials: Right tibioperoneal trunk with significant disease involving the posterior tibial and peroneal artery. One-vessel runoff to the ankle with anterior tibial artery. Left tibioperoneal trunk is diseased with one-vessel runoff to the foot posterior tibial artery. Operative narrative: After written informed consent was obtained the patient all risks benefits complications were described the patient is brought to the Communications Analyst and laid in a supine position. The area of the left wrist was prepped and draped in the usual sterile fashion. Local anesthesia with moderate sedation was performed with continuous pulse ox monitoring and EKG monitoring. Utilizing ultrasound the left radial artery was visualized and shown to be patent without any significant plaque. Utilizing a multipurpose needle under ultrasound guidance the artery was accessed. Guidewire was placed followed by 5 Austrian sheath. 035 Glidewire was then placed into the aorta followed by pigtail catheter. Angiogram was then obtained of the aorta. Catheter was then placed at the bifurcation and lower extremity runoffs were obtained. Once completed all guidewires, catheters and sheaths were removed and pressure was placed for hemostasis. Patient tolerated procedure well was sent to PACU for recovery
--- NOTE | 2024-10-12 08:50 | IR ---
EXAMINATION TYPE: IR angio abdominal w runoff DATE OF EXAM: 10/12/2024 8:39 AM COMPARISON: Pre Operative Images if available both CT/MRI or plain film CLINICAL INDICATION: Female, 79 years old with history of BILATERAL LEG PAIN 2.8min,12.8gycm2; TECHNIQUE: IR angio abdominal w runoff, multiple fluoroscopic images provided for procedure. Total fluoroscopy time: 2.8 seconds Total submitted images to PACS: [id number] DAP: 12.8 mGym2 Gycm2 uGym2 cGycm2 or equivalent. FINDINGS: IMPRESSION: 1. Report was generated for administrative purposes only. 2. Please see the operative/procedural note for further details. [facility], , 10/12/2024 8:48 AM
[2024-10-12 12:25] VITALS: BP 139/65; PULSE 68
== END 2024-10-12 12:02 | disposition home or self-care (01) ==
LOC: CATHCVL 06:03
PROVIDERS: ATTEND Surgery
DX: I70.213 Atherosclerosis of native arteries of extremities with intermittent claudication, bilateral legs (principal); Z88.5 Allergy status to narcotic agent; Z88.8 Allergy status to other drugs, medicaments and biological substances; Z87.891 Personal history of nicotine dependence
CPT/HCPCS: 99152; 99153; 36200; 75625; 75716; 80048; 85025; J2250; J2003; J1644; Q9967; J3010; J2305

== ENCOUNTER 2024-10-14 04:39 | Inpatient (IN) | payer MEDICARE, OTHER ==
[2024-10-14] MEDS: ONDANSETRON 4 MG/2 ML VIAL IVP STA (04:57)
[2024-10-14] MEDS: METOCLOPRAMIDE 5 MG/ML 2 ML VIAL IVP STA (05:18)
[2024-10-14] MEDS: diphenhydrAMINE 50 MG/ML 1 ML VIAL IVP STA (05:19)
[2024-10-14] MEDS: SODIUM CHLORIDE 0.9% 1,000 ML IV STA (05:24)
[2024-10-14 05:30] LABS: Basophils # (A) 0.1 k/uL (0-0.2); Basophils % (A) 0 %; Eosinophils # (A) 0.5 k/uL (0-0.7); Eosinophils % (A) 4 %; HCT 45.5 % (34.0-46.0); HGB 14.9 gm/dL (11.4-16.0); Lymphocytes # (A) 4.7 k/uL (1.0-4.8); Lymphocytes % (A) 37 %; MCH 32.5 pg (25.0-35.0); MCHC 32.7 g/dL (31.0-37.0); MCV 99.5 fL (80.0-100.0); Mean Platelet Volume 7.6; Monocytes # (A) 0.7 k/uL (0-1.0); Monocytes % (A) 6 %; Neutrophils # (A) 6.3 k/uL (1.3-7.7); Neutrophils % (A) 50 %; Platelet Count 462 k/uL (150-450); RBC 4.57 m/uL (3.80-5.40); RDW 12.2 % (11.5-15.5); WBC 12.7 k/uL (3.8-10.6)
[2024-10-14 05:34] LABS: ALT 20 U/L (4-34); AST 22 U/L (14-36); African American GFR (CKD) >90 (>60 ml/min/1.73 sqM); Albumin 4.2 g/dL (3.5-5.0); Alkaline Phosphatase 70 U/L (38-126); Anion Gap 9 mmol/L; Blood Urea Nitrogen 12 mg/dL (7-17); Calcium 9.8 mg/dL (8.4-10.2); Carbon Dioxide 20 mmol/L (22-30); Chloride 108 mmol/L (98-107); Glucose 253 mg/dL (74-99); Non-African American GFR(CKD) 86 (>60 ml/min/1.73 sqM); Potassium 3.9 mmol/L (3.5-5.1); Sodium 137 mmol/L (137-145); Total Bilirubin 0.4 mg/dL (0.2-1.3); Total Protein 6.7 g/dL (6.3-8.2)
[2024-10-14 05:47] LABS: Prothrombin Time 10.7 sec (10.0-12.5)
--- NOTE | 2024-10-14 05:57 | XR ---
EXAMINATION TYPE: XR chest 1V portable DATE OF EXAM: 10/14/2024 COMPARISON: CT July 27, 2024 CLINICAL INDICATION: Female, 79 years old with history of Weakness; TECHNIQUE: Single frontal view of the chest is obtained. FINDINGS: There is chronic parenchymal change redemonstrated with peripheral increased interstitial markings seen bilaterally. No pleural effusion or pneumothorax is present. The cardiac silhouette si ze remains within normal limits. The osseous structures are intact. IMPRESSION: Suspect new interstitial edema and/or atypical infection on background chronic emphysema tous change. Correlate clinically. [facility], , 10/14/2024 5:55 AM
[2024-10-14 05:58] LABS: Partial Thromboplastin Time 19.7 sec (22.0-30.0)
--- NOTE | 2024-10-14 06:09 | CT ---
EXAMINATION TYPE: CT brain portilloine wo con DATE OF EXAM: 10/14/2024 COMPARISON: Prior, CT 2010 HISTORY: Patient presents to by EMS with c/o left sided weakness. Patient has a history of DM and is hypertensive and lethargic per EMS 204/190. CT DLP: 1397.2 mGycm. Automated Exposure Control for Dose Reduction was Utilized. TECHNIQUE: CT scan of the head and cervical spine are performed without contrast. FINDINGS: There is no acute intracranial hemorrhage or midline shift identified. Mild to moderate v entricular and sulcal prominence is now seen. [id number] low-attenuation the deep and periven tricular white matter is now present. The calvarium is intact. Stable 10 mm right anterior superior e thmoid probable osteoma axial image 15. Paranasal sinuses are grossly clear.. Cervical spine is visualized in its entirety from C1 through upper thoracic levels and redemonstrates slight grade 1 retrolisthesis C3 on C4 and C4 on C5 without evidence of acute fracture or dislocatio n. Prevertebral soft tissue appears within normal limits. The C1-C2 articulation is within normal l imits on the coronal images. Vertebral body heights are maintained. Moderate multilevel disc space n arrowing and spurring is redemonstrated most prominent at C6-C7 level similar to prior. Axial images show multilevel facet degenerative changes bilaterally causing multilevel bilateral neur al foraminal narrowing. There is more prominent moderate calcified plaque bilateral carotid bulb leve l seen. The thyroid gland remains within normal limits. Lung apices show emphysematous change without pneumothorax. There is new suspicious 3.2 x 1.6 cm medial left upper lobe pulmonary mass axial image 109. There is however as discussed on recent chest CT report as stable and probable site of treated disease. IMPRESSION: 1. There is no acute fracture or dislocation evident in the cervical spine. 2. No acute intracranial hemorrhage or midline shift is seen. [facility], , 10/14/2024 6:07 AM
[2024-10-14 06:40] LABS: Appearance,Urine Clear (Clear); Bilirubin,Urine Negative (Negative); Blood,Urine Negative (Negative); Color,Urine Colorless; Glucose,Urine (UA) 4+ (Negative); Ketones,Urine Negative (Negative); Leukocyte Esterase,Urine Negative (Negative); Nitrite,Urine Negative (Negative); PH, Urine 7.5 (5.0-8.0); Protein,Urine Negative (Negative); Specific Gravity,Urine 1.008 (1.001-1.035); Urobilinogen,Urine <2.0 mg/dL (<2.0)
[2024-10-14] MEDS: SODIUM CHLORIDE 0.9% 1,000 ML IV ONE (06:44)
[2024-10-14] MEDS ORDERED: NALOXONE 0.4 MG/ML 1 ML VIAL IV PRN (07:46)
--- NOTE | 2024-10-14 07:46 | ED ---
Weakness HPI - General Chief complaint: Weakness Stated complaint: Weakness Time Seen by Provider: 10/14/24 04:45 Source: patient, EMS Mode of arrival: EMS - History of Present Illness Initial comments: 79-year-old female with past medical history of lung cancer on chemotherapy, diabetes, hypertension, peripheral vascular disease with recent aortogram on 10/12 who presents emergency department with weakness and vomiting. Patient states that she awoke from her sleep feeling nauseated and has had several episodes of retching. She tried to ambulate but was having significant weakness all over and therefore called EMS. EMS had a negative stroke scale. Patient is reporting that her left side feels weaker however no appreciable clinical sign to correlate with this. She is denying headache or visual changes. No chest pain or difficulty breathing. Patient is markedly hypertensive upon arrival. She denies speech changes. No facial droop. Patient did have a chemotherapy infusion earlier today. Denies any previous bad reactions to the infusion. She denies any fevers. Upon review of the patient's chart she recently had an aortogram by Dr. Taylor on October 12. Patient did not require any intervention. Denies any pain, bleeding or infection at the site. No numbness of the lower extremities. No other alleviating, precipitating modifying factors - Related Data Home Medications Medication Instructions Recorded Confirmed Morphine Sulfate [Morphine Sulfate 30 mg PO Q12H 09/15/21 10/14/24 ER] oxyCODONE HCL/ACETAMINOPHEN 1 tab PO BID PRN 09/15/21 10/14/24 [Percocet 10-325 mg] Atorvastatin [Lipitor] 20 mg PO HS 11/29/21 10/14/24 DULoxetine HCL [Cymbalta] 30 mg PO DAILY 10/14/24 10/14/24 Repaglinide [Prandin] 0.5 mg PO AC-TID 10/14/24 10/14/24 lisinopriL [Zestril] 2.5 mg PO DAILY 10/14/24 10/14/24 predniSONE 5 mg PO DAILY 10/14/24 10/14/24 Allergies Allergy/AdvReac Type Severity Reaction Status Date / Time adhesive Allergy SKIN Verified 10/14/24 10:52 BLISTERS codeine AdvReac Nausea & Verified 10/14/24 10:52 Vomiting Review of Systems ROS Statement: Those systems with pertinent positive or pertinent negative responses have been documented in the HPI. ROS Other: All systems not noted in ROS Statement are negative. Past Medical History Past Medical History: Cancer, Diabetes Mellitus, Hyperlipidemia, Hypertension, Skin Disorder Additional Past Medical History / Comment(s): ECZEMA,HTN-NO LONGER ON MEDS, 5 THYROID NODULES. 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 Past Anesthesia/Blood Transfusion Reactions: No Reported Reaction Additional Past Anesthesia/Blood Transfusion Reaction / Comment(s): "partially paralyzed vocal cord" Past Psychological History: Anxiety, Depression Smoking Status: Former smoker - Past Family History Mother Family Medical History: Cancer Additional Family Medical History / Comment(s): lung Sister(s) Family Medical History: Cancer Father Family Medical History: Myocardial Infarction (RI) General Exam Limitations: physical limitation (vomiting) Head exam: Present: atraumatic, normocephalic, normal inspection Eye exam: Present: normal appearance, PERRL, EOMI, other (Patient will only keep her eye open for two seconds and states it increases her nausea). Absent: scle ral icterus, conjunctival injection, periorbital swelling ENT exam: Present: normal exam, mucous membranes moist Neck exam: Present: normal inspection. Absent: tenderness, meningismus, lymphadenopathy Respiratory exam: Present: normal lung sounds bilaterally. Absent: respiratory distress, wheezes, rales, rhonchi, stridor Cardiovascular Exam: Present: regular rate, normal rhythm, normal heart sounds. Absent: systolic murmur, diastolic murmur, rubs, gallop, clicks GI/Abdominal exam: Present: soft, normal bowel sounds. Absent: distended, tenderness, guarding, rebound, rigid Course Vital Signs 10/14/24 10/14/24 10/14/24 04:42 05:26 08:10 Temperature 98.0 F Pulse Rate 71 72 78 Respiratory 18 18 20 Rate Blood Pressure 181/96 174/89 167/85 O2 Sat by Pulse 98 98 97 Oximetry 10/14/24 10/14/24 10/14/24 11:28 13:57 18:28 Temperature 97.4 F L Pulse Rate 75 87 85 Respiratory 20 18 18 Rate Blood Pressure 163/110 153/81 132/77 O2 Sat by Pulse 97 99 99 Oximetry Medical Decision Making - Medical Decision Making Was pt. sent in by a medical professional or institution (, PA, APPRENTICE TECHNICIAN, urgent care, hospital, or fdc...) When possible be specific @ -No Did you speak to anyone other than the patient for history (EMS, parent, family, police, friend...)? What history was obtained from this source @ -Spoke with EMS for history Did you review nursing and triage notes (agree or disagree)? Why? @ -I reviewed and agree with nursing and triage notes Were old charts reviewed (outside hosp., previous admission, EMS record, old EKG, old radiological studies, urgent care reports/EKG's, fdc records)? Report findings @ -I reviewed the patient's chart. She was recently in the hospital to have an angiogram done by Dr. Taylor. I questioned the patient about her recent procedure and she denies any complaints Differential Diagnosis (chest pain, altered mental status, abdominal pain women, abdominal pain men, vaginal bleeding, weakness, fever, dyspnea, syncope, headache, dizziness, GI bleed, back pain, seizure, CVA, palpatations, mental health, musculoskeletal)? @ -Differential Weakness: Hypoglycemia, shock, sepsis, hyponatremia, anemia, infection, RI, ETOH, adverse medicine reaction, overdose, stroke, this is not meant to be an all-inclusive list. EKG interpreted by me (3pts min.). @ -Yes and demonstrate sinus rhythm with a rate of 70. NH interval 158. QRS 91. QTc of 427. No acute ST segment elevations. ST depression 2, 3, aVF as well as V4 through V6 X-rays interpreted by me (1pt min.). @ -Yes which demonstrates no acute process CT interpreted by me (1pt min.). @ -Yes which demonstrates no acute process U/S interpreted by me (1pt. min.). @ -None done What testing was considered but not performed or refused? (CT, X-rays, U/S, labs)? Why? @ -None What meds were considered but not given or refused? Why? @ -None Did you discuss the management of the patient with other professionals (professionals i.e. , PA, APPRENTICE TECHNICIAN, lab, RT, psych nurse, rn social services, shoe cobbler, teacher, [employer] officer, supervisor case loading)? Give summary @ -I spoke with Dr. Flores. He will admit the patient for further workup Was smoking cessation discussed for >3mins.? @ -No Was critical care preformed (if so, how long)? @ -No Were there social determinants of health that impacted care today? How? ( Homelessness, low income, unemployed, alcoholism, drug addiction, transportation, low edu. Level, literacy, decrease access to med. care, [facility], rehab)? @ -No Was there de-escalation of care discussed even if they declined (Discuss DNR or withdrawal of care, Hospice)? DNR status @ -No What co-morbidities impacted this encounter? (DM, HTN, Smoking, COPD, CAD, Cancer, CVA, ARF, Chemo, Hep., AIDS, mental health diagnosis, sleep apnea, morbid obesity)? @ -Lung cancer on chemo, peripheral vascular disease with recent angiogram Was patient admitted / discharged? Hospital course, mention meds given and route, prescriptions, significant lab abnormalities, going to OR and other pertinent info. @ -Upon arrival patient was seen and evaluated in room 11. Thorough history and physical exam was performed. History is limited as patient is profusely nauseated and vomiting. IV had been established and she was given antiemetics. I did reevaluate the patient and she continues to have vomiting and therefore I gave her further antiemetics. I did recommend chest x-ray and CT of her brain. Patient denies having a headache or visual changes. Imaging is performed and negative for any acute process. I recommended admission for which the patient was agreeable. Spoke with Dr. Acevedo for admission Undiagnosed new problem with uncertain prognosis? @ -No Drug Therapy requiring intensive monitoring for toxicity (Heparin, Nitro, Insulin, Cardizem)? @ -No Were any procedures done? @ -No Diagnosis/symptom? @ -Acute nausea and vomiting, acute generalized weakness Acute, or Chronic, or Acute on Chronic? @ -Acute Uncomplicated (without systemic symptoms) or Complicated (systemic symptoms)? @ -Complicated Side effects of treatment? @ -No Exacerbation, Progression, or Severe Exacerbation? @ -No Poses a threat to life or bodily function? How? (Chest pain, [place], RI, pneumonia, PE, COPD, DKA, ARF, appy, cholecystitis, CVA, Diverticulitis, Homicidal, Suicidal, threat to staff... and all critical care pts) @ -Possibly as symptoms are possibly due to vertebrobasilar insufficiency versu s cerebellar stroke versus other etiologies of weakness and vomiting - Lab Data Result diagrams: 10/17/24 04:00 10/17/24 08:27 Lab Results 10/14/24 10/14/24 10/14/24 Range/Units 04:50 04:50 04:50 WBC 12.7 H (3.8-10.6) k/uL RBC 4.57 (3.80-5.40) m/uL Hgb 14.9 (11.4-16.0) gm/dL Hct 45.5 (34.0-46.0) % MCV 99.5 (80.0-100.0) fL MCH 32.5 (25.0-35.0) pg MCHC 32.7 (31.0-37.0) g/dL RDW 12.2 (11.5-15.5) % Plt Count 462 H (150-450) k/uL MPV 7.6 Neutrophils % 50 % Lymphocytes % 37 % Monocytes % 6 % Eosinophils % 4 % Basophils % 0 % Neutrophils # 6.3 (1.3-7.7) k/uL Lymphocytes # 4.7 (1.0-4.8) k/uL Monocytes # 0.7 (0-1.0) k/uL Eosinophils # 0.5 (0-0.7) k/uL Basophils # 0.1 (0-0.2) k/uL PT 10.7 (10.0-12.5) sec INR 1.0 (<1.2) APTT 19.7 L (22.0-30.0) sec Sodium 137 (137-145) mmol/L Potassium 3.9 (3.5-5.1) mmol/L Chloride 108 H (98-107) mmol/L Carbon Dioxide 20 L (22-30) mmol/L Anion Gap 9 mmol/L BUN 12 (7-17) mg/dL Creatinine 0.66 (0.52-1.04) mg/dL Est GFR (CKD-EPI)AfAm >90 (>60 ml/min/1.73 sqM) Est GFR (CKD-EPI)NonAf 86 (>60 ml/min/1.73 sqM) Glucose 253 H (74-99) mg/dL Lactic Ac Sepsis Rflx Plasma Lactic Acid Jackson (0.7-2.0) mmol/L Calcium 9.8 (8.4-10.2) mg/dL Magnesium 2.0 (1.6-2.3) mg/dL Total Bilirubin 0.4 (0.2-1.3) mg/dL AST 22 (14-36) U/L ALT 20 (4-34) U/L Alkaline Phosphatase 70 (38-126) U/L Troponin I (0.000-0.034) ng/mL Total Protein 6.7 (6.3-8.2) g/dL Albumin 4.2 (3.5-5.0) g/dL Urine Color Urine Appearance (Clear) Urine pH (5.0-8.0) Ur Specific [place] (1.001-1.035) Urine Protein (Negative) Urine Glucose (UA) (Negative) Urine Ketones (Negative) Urine Blood (Negative) Urine Nitrite (Negative) Urine Bilirubin (Negative) Urine Urobilinogen (<2.0) mg/dL Ur Leukocyte Esterase (Negative) 10/14/24 10/14/24 10/14/24 Range/Units 04:50 04:50 05:58 WBC (3.8-10.6) k/uL RBC (3.80-5.40) m/uL Hgb (11.4-16.0) gm/dL Hct (34.0-46.0) % MCV (80.0-100.0) fL MCH (25.0-35.0) pg MCHC (31.0-37.0) g/dL RDW (11.5-15.5) % Plt Count (150-450) k/uL MPV Neutrophils % % Lymphocytes % % Monocytes % % Eosinophils % % Basophils % % Neutrophils # (1.3-7.7) k/uL Lymphocytes # (1.0-4.8) k/uL Monocytes # (0-1.0) k/uL Eosinophils # (0-0.7) k/uL Basophils # (0-0.2) k/uL PT (10.0-12.5) sec INR (<1.2) APTT (22.0-30.0) sec Sodium (137-145) mmol/L Potassium (3.5-5.1) mmol/L Chloride (98-107) mmol/L Carbon Dioxide (22-30) mmol/L Anion Gap mmol/L BUN (7-17) mg/dL Creatinine (0.52-1.04) mg/dL Est GFR (CKD-EPI)AfAm (>60 ml/min/1.73 sqM) Est GFR (CKD-EPI)NonAf (>60 ml/min/1.73 sqM) Glucose (74-99) mg/dL Lactic Ac Sepsis Rflx Y Plasma Lactic Acid Jackson 3.7 H* (0.7-2.0) mmol/L Calcium (8.4-10.2) mg/dL Magnesium (1.6-2.3) mg/dL Total Bilirubin (0.2-1.3) mg/dL AST (14-36) U/L ALT (4-34) U/L Alkaline Phosphatase (38-126) U/L Troponin I 0.019 (0.000-0.034) ng/mL Total Protein (6.3-8.2) g/dL Albumin (3.5-5.0) g/dL Urine Color Urine Appearance (Clear) Urine pH (5.0-8.0) Ur Specific [place] (1.001-1.035) Urine Protein (Negative) Urine Glucose (UA) (Negative) Urine Ketones (Negative) Urine Blood (Negative) Urine Nitrite (Negative) Urine Bilirubin (Negative) Urine Urobilinogen (<2.0) mg/dL Ur Leukocyte Esterase (Negative) 10/14/24 10/14/24 Range/Units 06:29 08:23 WBC (3.8-10.6) k/uL RBC (3.80-5.40) m/uL Hgb (11.4-16.0) gm/dL Hct (34.0-46.0) % MCV (80.0-100.0) fL MCH (25.0-35.0) pg MCHC (31.0-37.0) g/dL RDW (11.5-15.5) % Plt Count (150-450) k/uL MPV Neutrophils % % Lymphocytes % % Monocytes % % Eosinophils % % Basophils % % Neutrophils # (1.3-7.7) k/uL Lymphocytes # (1.0-4.8) k/uL Monocytes # (0-1.0) k/uL Eosinophils # (0-0.7) k/uL Basophils # (0-0.2) k/uL PT (10.0-12.5) sec INR (<1.2) APTT (22.0-30.0) sec Sodium (137-145) mmol/L Potassium (3.5-5.1) mmol/L Chloride (98-107) mmol/L Carbon Dioxide (22-30) mmol/L Anion Gap mmol/L BUN (7-17) mg/dL Creatinine (0.52-1.04) mg/dL Est GFR (CKD-EPI)AfAm (>60 ml/min/1.73 sqM) Est GFR (CKD-EPI)NonAf (>60 ml/min/1.73 sqM) Glucose (74-99) mg/dL Lactic Ac Sepsis Rflx Plasma Lactic Acid Jackson 1.3 (0.7-2.0) mmol/L Calcium (8.4-10.2) mg/dL Magnesium (1.6-2.3) mg/dL Total Bilirubin (0.2-1.3) mg/dL AST (14-36) U/L ALT (4-34) U/L Alkaline Phosphatase (38-126) U/L Troponin I (0.000-0.034) ng/mL Total Protein (6.3-8.2) g/dL Albumin (3.5-5.0) g/dL Urine Color Colorless Urine Appearance Clear (Clear) Urine pH 7.5 (5.0-8.0) Ur Specific [place] 1.008 (1.001-1.035) Urine Protein Negative (Negative) Urine Glucose (UA) 4+ H (Negative) Urine Ketones Negative (Negative) Urine Blood Negative (Negative) Urine Nitrite Negative (Negative) Urine Bilirubin Negative (Negative) Urine Urobilinogen <2.0 (<2.0) mg/dL Ur Leukocyte Esterase Negative (Negative) Disposition Clinical Impression: Nausea & vomiting, Generalized weakness, Lung cancer Disposition: ADMITTED IP TO THIS HOSP Condition: Serious Is patient prescribed a controlled substance at d/c from ED?: No Time of Disposition: 07:46 Decision to Admit Reason: Admit from EC Decision Date: 10/14/24 Decision Time: 07:46
[2024-10-14] MEDS: SODIUM CHLORIDE 0.9% 1,000 ML IV SCH (08:14)
--- NOTE | 2024-10-14 10:22 | CT ---
EXAMINATION TYPE: CT angio head neck DATE OF EXAM: 10/14/2024 9:43 AM COMPARISON: CT brain today CLINICAL INDICATION: Female, 79 years old with history of ataxia TECHNIQUE: Contiguous axial scanning of the head and neck performed with IV Contrast, patient injecte d with 65 mL of Isovue 370. Coronal and sagittal reconstructions performed. 3-D reconstructions gener ated on a dedicated workstation. CT DLP: 393.5 mGycm, Automated exposure control for dose reduction was used. FINDINGS: Neck: Dependent debris within the trachea. There is increased soft tissue in the pericarinal and AP window region. Subcarinal soft tissue thickening now up to 1.8 cm. Medial left upper lobe nodule currently 2 .3 cm versus 2.0 cm on 07/27/2024. Interstitial changes in the visualized lungs may reflect some under lying interstitial edema. Background moderate emphysematous change. Mild atherosclerotic arch calcifications. The measured vessel branching anatomy. Possible moderate or severe stenosis at the origin of the left vertebral artery with a dominant right vertebral artery present. Otherwise, both vertebral arteries are patent throughout their course. The right common carotid artery is patent. There is moderate atherosclerotic change of the right carotid bifurcation with proximal right ICA jony rowing with a 65% stenosis just beyond the level of the carotid bulb. The remainder of the right ICA is patent. The left common carotid artery is patent. Mild to moderate atherosclerotic calcifications at the left carotid bifurcation with mild, 40% proxim al left ICA narrowing. Remainder of the left ICA is patent. NASCET criteria was utilized. Head: Atherosclerotic calcifications within the bilateral carotid siphons with segmental mild stenoses Otherwise, the bilateral internal carotid arteries and remainder of the anterior circulation is paten t. Dominant right vertebral artery. Moderate atherosclerotic narrowing proximal V4 segment right vertebr al artery. Otherwise, vertebral and basilar arteries as well as the remainder of the posterior circul ation is patent. IMPRESSION: NECK: 1. Increased soft tissue density in the pericarinal and AP window region. Subcarinal soft tissue thic kening now up to 1.8 cm, new from prior. Medial left upper lobe nodule currently 2.3 cm versus 2.0 cm on 07/27/2024. Recommend oncology follow-up for appropriate surveillance and to exclude early progres louie. 2. COPD with moderate emphysema and superimposed interstitial changes. Correlate to exclude fluid ove rload. 3. Moderate atherosclerotic change at the right carotid bifurcation with a moderate, 65% proximal rig ht ICA stenosis. Mild, 40% proximal left ICA stenosis. 4. Nondominant left vertebral artery with possible moderate to severe stenosis at its origin. HEAD: 5. Moderate atherosclerotic narrowing proximal V4 segment dominant right vertebral artery. 6. Mild atherosclerotic narrowing throughout the bilateral intracranial ICA. 7. No large vessel intracranial arterial occlusion, significant stenosis, or aneurysmal change is see n. [facility], , 10/14/2024 10:19 AM
[2024-10-14] MEDS: DULoxetine HCL 30 MG CAPSULE.DR PO SCH (13:59)
[2024-10-14] MEDS: MORPHINE SULFATE ER 30 MG TABLET PO SCH (13:59)
[2024-10-14] MEDS: ENOXAPARIN 40 MG/0.4 ML SYRINGE SQ SCH (13:59)
[2024-10-14] MEDS: REPAGLINIDE 1 MG TAB PO SCH (14:00)
[2024-10-14] MEDS: predniSONE 5 MG TAB PO SCH (14:00)
--- NOTE | 2024-10-14 14:54 | P.CNNES ---
History of Present Illness Consult date: 10/14/24 Requesting physician: Alycia Nevarez Reason for Consult: acute vertigo History of Present Illness: This is a 79-year-old woman who is our emergency department because of dizziness off balance and generalized weakness. Patient stated that her symptoms began yesterday when she woke up at 3 AM and her last normal was at 10 PM the night prior. She stated that she felt the room is dizzy and its mostly with movement and she had nausea vomiting. She also has double vision over the left eye. She has generalized weakness. She feels off balance. Denies any history of stroke. She does have underlying history of lung cancer and she is on chemotherapy. Denies any speech difficulty, denies any difficulty swallowing, denies any numbness. Some of the workup during this hospital visit consisted of: I reviewed the lab workup. CT head and cervical is reported as there is no acute fracture or dislocation evident in the cervical spine. No acute intracranial hemorrhage or midline shift. I Reviewed the CT head and agree there is no acute or subacute ischemic stroke. CTA head: Reported as increased soft tissue density in pericardial and AP window region. Subcorneal soft tissue thickening now up to 1.8 cm, new from prior. Medial left upper lobe nodule currently 2.3 cm versus 2.0 cm on 07/27/2024. Recommend oncology follow-up for appropriate surveillance and to exclude early progression. COPD with moderate emphysema and some 4 points interstitial change. Correlate to exclude fluid overload. Moderate atherosclerotic change at the right carotid bifurcation with a moderate 65% proximal right ICA mild 40% proximal left ICA. Nondominant left vertebral artery with possible moderate to severe stenosis at its origin. CTA neck: Moderate atherosclerotic narrowing proximal V4 segment dominant right vertebral artery. Mild atherosclerotic narrowing throughout the bilateral intracranial ICA. No large vessel intracranial arterial occlusion, significant stenosis or aneurysm changes seen. Review of Systems As per HPI. Past Medical History Past Medical History: Cancer, Diabetes Mellitus, Hyperlipidemia, Hypertension, Skin Disorder Additional Past Medical History / Comment(s): ECZEMA,HTN-NO LONGER ON MEDS, 5 THYROID NODULES. 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 Past Anesthesia/Blood Transfusion Reactions: No Reported Reaction Additional Past Anesthesia/Blood Transfusion Reaction / Comment(s): "partially paralyzed vocal cord" Past Psychological History: Anxiety, Depression Smoking Status: Former smoker - Past Family History Mother Family Medical History: Cancer Additional Family Medical History / Comment(s): lung Sister(s) Family Medical History: Cancer Father Family Medical History: Myocardial Infarction ([place]) Medications and Allergies Home Medications Medication Instructions Recorded Confirmed Type Morphine Sulfate [Morphine Sulfate 30 mg PO Q12H 09/15/21 10/14/24 History ER] oxyCODONE HCL/ACETAMINOPHEN 1 tab PO BID PRN 09/15/21 10/14/24 History [Percocet 10-325 mg] Atorvastatin [Lipitor] 20 mg PO HS 11/29/21 10/14/24 History DULoxetine HCL [Cymbalta] 30 mg PO DAILY 10/14/24 10/14/24 History Repaglinide [Prandin] 0.5 mg PO AC-TID 10/14/24 10/14/24 History lisinopriL [Zestril] 2.5 mg PO DAILY 10/14/24 10/14/24 History predniSONE 5 mg PO DAILY 10/14/24 10/14/24 History Allergies Allergy/AdvReac Type Severity Reaction Status Date / Time adhesive Allergy SKIN Verified 10/14/24 10:52 BLISTERS codeine AdvReac Nausea & Verified 10/14/24 10:52 Vomiting Physical Examination - Vital Signs Vital Signs: Vital Signs Temp Pulse Resp BP Pulse Ox 10/14/24 13:57 87 18 153/81 99 10/14/24 11:28 75 20 163/110 97 10/14/24 08:10 78 20 167/85 97 10/14/24 05:26 72 18 174/89 98 10/14/24 04:42 98.0 F 71 18 181/96 98 Intake and Output 12/03/24 12/04/24 12/04/24 22:59 06:59 14:59 Other: Weight 59.421 kg General: Lying in bed and is not in acute distress. Neuro: Patient is awake alert oriented to self place and time. Is following simple commands. No aphasia no neglect. Pupils are round equal reactive to light. Pupils are round 3 mm bilaterally. Visual buckley are full to confrontation. Ocular movement patient has nystagmus looking to the left seems more more rotatory. Patient has diplopia over the left. Normal facial sensation to touch. Has mild left nasolabial flattening. No dysarthria. Tongue is midline moves [id number] with any difficulty. Motor the strength is 5 out of 5 throughout. Normal tone and bulk Sensation is normal to touch Cerebellar: There is ataxia on the left [id number]. Sensation is normal to touch Reflexes 2 positive Plantars are mute. Results - Laboratory Findings CBC and BMP: 10/14/24 04:50 10/14/24 04:50 Abnormal Lab Findings: Abnormal Labs 10/14/24 10/14/24 10/14/24 04:50 04:50 04:50 WBC 12.7 H Plt Count 462 H APTT 19.7 L Chloride 108 H Carbon Dioxide 20 L Glucose 253 H Plasma Lactic Acid Jackson Urine Glucose (UA) 10/14/24 10/14/24 04:50 06:29 WBC Plt Count APTT Chloride Carbon Dioxide Glucose Plasma Lactic Acid Jackson 3.7 H* Urine Glucose (UA) 4+ H Assessment and Plan Assessment: This is a 79-year-old woman with history of lung cancer and is on chemotherapy who presented emergency department because of dizziness, nausea vomiting, diplopia of the left eye. On examination patient had ataxia on the [id number] and had nystagmus looking to the left. Acute vertigo: Rule out brain mets or stroke especially with a history of lung cancer. Underlying history of lung cancer and it seems that her lung nodule is larger on this current CT reported ICA stenosis is moderate of 65% proximal and this seems more asymptomatic while left ICA is 40% considered mild History of lung cancer and patient is on chemotherapy Hypertension Hyperlipidemia Diabetes mellitus Plan: MRI of the brain without is ordered and I change it to with and without If patient does have a stroke then we will get the rest of stroke workup start the patient on antiplatelet I started the patient on Antivert 25 mg 1 tablet 3 times daily scheduled. Consulted PT and OT Recommend oncology consultation Will defer the rest of the medical management to primary and other specialist Plan discussed with patient primary attending Thank you for the consultation peer Time with Patient: Greater than 30
--- NOTE | 2024-10-14 15:56 | MR ---
EXAMINATION TYPE: MR brain wo/w con DATE OF EXAM: 10/14/2024 3:37 PM COMPARISON: 11/06/2021 CLINICAL INDICATION: Female, 79 years old with history of dizziness, nystamgus. hx of cancer r/o mets , dizziness, nystagmus. hs of cancer r/o mets TECHNIQUE: Multiplanar, multiecho imaging on a 3.0 Camryn magnet is performed through the brain. Stud y is performed within 24 hours of arrival to the hospital.Multiplanar, multiecho imaging on a 3.0 Rosa la magnet is performed through the knee. IV Contrast: 6 mL Gadobutrol (None, if empty) FINDINGS: The craniovertebral junction is normal. The pituitary is normal. Diffusion-weighted imaging is performed. There is hyperintensity within the inferior medial cerebell ar lobes bilaterally. There is a focal area increase signal within the posterior left cerebellum. Fin dings appear suggestive for ischemic changes. Chronic appearing periventricular white matter hyperintensity is present likely on the basis of chron ic white matter ischemic changes. Small amount of increased signal is within the brainstem may be minnie e additional ischemic areas. These findings appear chronic. Ventricles and sulci are appropriate for the patient age. No suspicious areas of enhancement are evident. Vasogenic edema is not identified. No discrete suspic ious masses for metastasis identified. IMPRESSION: 1. There appears to be acute ischemic change within the inferior medial cerebellum. Lacunar infarct t ype acute change may be within the posterior mid left cerebellum. 2. Chronic appearing periventricular and brainstem deep white matter type ischemic changes. 3. No suspicious changes for metastasis. [facility], Workstation: [facility], 10/14/2024 3:54 PM
--- NOTE | 2024-10-14 18:26 | P.HPIM ---
History of Present Illness H&P Date: 10/14/24 Chief Complaint: Very dizzy Is a pleasant 79-year-old patient who follows with Dr. Salgado. 2 years ago. Patient is on Keytruda. Include diabetes, hyperlipidemia, hypertension, thyroid nodules, kidney stones, restless leg syndrome, insomnia, history of diverticu litis some involvement of lobe vocal cord from lung tumor. She follows with oncologist Dr. Jenaro Gary. About 3 AM she woke up to walk her dogs felt extremely dizzy everything was spinning around. Also vomited twice. Denies any infection symptoms. No ringing in the ears. She felt much worse with moving her head. Also having some double vision. Had not really been able to walk since then because of severe dizziness and presented to the ER. Initial CT scan in the ER unremarkable. No chest pain palpitation. Review of systems: GEN.: [Tired EYES: Double vision HEENT: As above NECK: None RESPIRATORY: None CARDIOVASCULAR: None GASTROINTESTINAL vomited x 2 GENITOURINARY: None MUSCULOSKELETAL: None LYMPHATICS: None HEMATOLOGICAL: None PSYCHIATRY: None NEUROLOGICAL: No focal weakness Social history: Patient smoked for 46 years. Three-quarter pack a day. Stopped in 2012. No alcohol. Lives alone Physical examination: VITAL SIGNS: 98, 75, 20, 163 x 110, 97% on 2 L GENERAL: BMI 19.3, laying in bed, tired appearing. EYES: Pupils equal. Conjunctiva shilpi l. HEENT: External appearance of nose and ears normal, oral cavity grossly normal. NECK: JVD not raised; masses not palpable. HEART: First and second heart sounds are normal; no edema. LUNGS: Respiratory rate normal; decreased breath sounds. ABDOMEN: Soft, nontender, liver spleen not palpable, no masses palpable. PSYCH: [Alert and oriented x3; mood and affect tired l. MUSCULOSKELETAL:No Clubbing/cyanosis;muscles-grossly intact. Loss of subcutaneous fat. Decreased muscle mass. OA NEUROLOGICAL: Some nystagmus looking to the right. Left-sided dysdiadochokinesia and past-pointing.. LYMPHATICS: No lymph nodes palpable in the axilla and neck INVESTIGATIONS, reviewed in the clinical context: October 14: White count 12.7 hemoglobin 14.9 platelets 462 sodium 137 potassium 3.9 creatinine 0.66 glucose 253 lactic acid 3.7 repeat 1.3 UA: Glucose 4+ Chest x-ray film personally reviewed by me-right diaphragm elevated. Some interstitial prominence Head cervical spine CT: Unremarkable EKG tracing personally reviewed by me-ST segment depression in inferolateral leads. CT angiography head and neck: COPD with emphysema. Interstitial changes. 65% proximal right ICA stenosis. Mild 40% proximal left ICA stenosis. Nondominant left vertebral artery with possible moderate to severe stenosis at its origin. Increased soft tissue density in the pericarinal and AP window region. Other details in the full report Assessment plan: -Possible cerebellar stroke. Acute vestibulitis of the differential Patient presented acute onset of severe dizziness. Unable to keep herself up. Has nystagmus some left-sided cerebellar signs. Diplopia. Neurochecks. MRI of the brain. Neurology consulted. -Lung cancer. Being treated with Keytruda. Oncologist Dr. Salvador Gary -Essential hypertension Zestril 2.5 mg a day -Hyperlipidemia Lipitor 20 mg nightly -COPD no prior smoker Diabetes mellitus type 2 Prandin 0.5 mg AC 3 times daily -Chronic pain Continue morphine sulfate 30 mg every 12 and Percocet as needed -Full code Discussed with patient. Given the complexity and severity of patient's condition expect the patient to be in the hospital at least for 2 overnights Past Medical History Past Medical History: Cancer, Diabetes Mellitus, Hyperlipidemia, Hypertension, Skin Disorder Additional Past Medical History / Comment(s): ECZEMA,HTN-NO LONGER ON MEDS, 5 THYROID NODULES. 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 Past Anesthesia/Blood Transfusion Reactions: No Reported Reaction Additional Past Anesthesia/Blood Transfusion Reaction / Comment(s): "partially paralyzed vocal cord" Past Psychological History: Anxiety, Depression Smoking Status: Former smoker - Past Family History Mother Family Medical History: Cancer Additional Family Medical History / Comment(s): lung Sister(s) Family Medical History: Cancer Father Family Medical History: Myocardial Infarction ([place]) Medications and Allergies Home Medications Medication Instructions Recorded Confirmed Type Morphine Sulfate [Morphine Sulfate 30 mg PO Q12H 09/15/21 10/14/24 History ER] oxyCODONE HCL/ACETAMINOPHEN 1 tab PO BID PRN 09/15/21 10/14/24 History [Percocet 10-325 mg] Atorvastatin [Lipitor] 20 mg PO HS 11/29/21 10/14/24 History DULoxetine HCL [Cymbalta] 30 mg PO DAILY 10/14/24 10/14/24 History Repaglinide [Prandin] 0.5 mg PO AC-TID 10/14/24 10/14/24 History lisinopriL [Zestril] 2.5 mg PO DAILY 10/14/24 10/14/24 History predniSONE 5 mg PO DAILY 10/14/24 10/14/24 History Allergies Allergy/AdvReac Type Severity Reaction Status Date / Time adhesive Allergy SKIN Verified 10/14/24 10:52 BLISTERS codeine AdvReac Nausea & Verified 10/14/24 10:52 Vomiting Physical Exam Vitals: Vital Signs Temp Pulse Resp BP Pulse Ox 10/14/24 08:10 78 20 167/85 97 10/14/24 05:26 72 18 174/89 98 10/14/24 04:42 98.0 F 71 18 181/96 98 Intake and Output 10/13/24 10/14/24 10/14/24 22:59 06:59 14:59 Other: Weight 59.421 kg Results CBC & Chem 7: 10/14/24 04:50 10/14/24 04:50 Labs: Abnormal Lab Results - Last 24 Hours (Table) 10/14/24 10/14/24 10/14/24 Range/Units 04:50 04:50 04:50 WBC 12.7 H (3.8-10.6) k/uL Plt Count 462 H (150-450) k/uL APTT 19.7 L (22.0-30.0) sec Chloride 108 H (98-107) mmol/L Carbon Dioxide 20 L (22-30) mmol/L Glucose 253 H (74-99) mg/dL Plasma Lactic Acid Jackson (0.7-2.0) mmol/L Urine Glucose (UA) (Negative) 10/14/24 10/14/24 Range/Units 04:50 06:29 WBC (3.8-10.6) k/uL Plt Count (150-450) k/uL APTT (22.0-30.0) sec Chloride (98-107) mmol/L Carbon Dioxide (22-30) mmol/L Glucose (74-99) mg/dL Plasma Lactic Acid Jackson 3.7 H* (0.7-2.0) mmol/L Urine Glucose (UA) 4+ H (Negative)
[2024-10-14] MEDS ORDERED: DEXTROSE 50% SYRINGE 50 ML IVP PRN ×2 (18:27)
[2024-10-14] MEDS: INSULIN ASPART (NovoLOG) 100 UNIT/ML VIAL SQ SCH (19:42)
[2024-10-14] MEDS: MECLIZINE 25 MG TAB PO SCH (20:08)
[2024-10-14] MEDS: ATORVASTATIN 40 MG TAB PO SCH (20:08)
[2024-10-14] MEDS: ASPIRIN 325 MG TAB PO STA (20:08)
[2024-10-14 20:21] LABS: Glucose,Whole Blood 175 mg/dL (70-110)
[2024-10-14] MEDS ORDERED: ATORVASTATIN 20 MG TAB PO SCH (21:00)
[2024-10-15 05:49] LABS: Glucose,Whole Blood 197 mg/dL (70-110)
[2024-10-15 07:14] LABS: Basophils % (A) 0 %; Eosinophils % (A) 0 %; HCT 42.5 % (34.0-46.0); HGB 13.4 gm/dL (11.4-16.0); Lymphocytes # (A) 1.4 k/uL (1.0-4.8); Lymphocytes % (A) 10 %; MCH 31.5 pg (25.0-35.0); MCHC 31.5 g/dL (31.0-37.0); Mean Platelet Volume 7.2; Monocytes # (A) 0.7 k/uL (0-1.0); Monocytes % (A) 5 %; Neutrophils # (A) 12.5 k/uL (1.3-7.7); Neutrophils % (A) 83 %; Platelet Count 396 k/uL (150-450); RBC 4.26 m/uL (3.80-5.40); RDW 12.1 % (11.5-15.5); WBC 15.1 k/uL (3.8-10.6)
[2024-10-15 07:32] LABS: African American GFR (CKD) >90 (>60 ml/min/1.73 sqM); Anion Gap 8 mmol/L; Blood Urea Nitrogen 16 mg/dL (7-17); Calcium 9.1 mg/dL (8.4-10.2); Carbon Dioxide 21 mmol/L (22-30); Chloride 108 mmol/L (98-107); Glucose 176 mg/dL (74-99); Non-African American GFR(CKD) 89 (>60 ml/min/1.73 sqM); Potassium 3.9 mmol/L (3.5-5.1); Sodium 137 mmol/L (137-145)
[2024-10-15] MEDS: ASPIRIN 81 MG PO SCH (08:44)
[2024-10-15 11:25] LABS: Glucose,Whole Blood 157 mg/dL (70-110)
--- NOTE | 2024-10-15 12:33 | CA ---
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 67 - 155 / 56 - 104 cm??? LV Systolic Volume MOD BP 40.6 cm??? 22 - 58 / 19 - 49 cm??? LV Ejection Fraction MOD BP 45.8 % >= 55 % LV Cardiac Index MOD BP 1686.2 cm???/min???m??? LV Diastolic Volume MOD 4C 68.2 cm??? LV Systolic Volume MOD 4C 47.2 cm??? LV Ejection Fraction MOD 4C 30.8 % LV Cardiac Index MOD 4C 1029.0 cm???/min???m??? LV Diastolic Length 4C 6.7 cm LV Systolic Length 4C 6.0 cm LV Diastolic Volume MOD 2C 77.4 cm??? LV Systolic Volume MOD 2C 35.4 cm??? LV Ejection Fraction MOD 2C 54.2 % LV Cardiac Index MOD 2C 2057.0 cm???/min???m??? LV Diastolic Length 2C 7.1 cm LV Systolic Length 2C 6.0 cm LA Volume 48.1 cm??? 18 - 58 / 22 - 52 cm??? LA Volume Index 28.4 cm???/m??? 16 - 28 cm???/m??? M-MODE Aortic Root Diameter MM 2.2 cm LA Systolic Diameter MM 3.7 cm LA Ao Ratio MM 1.7 DOPPLER MV Area PHT 3.3 cm??? Mitral E Point Velocity 58.6 cm/s Mitral A Point Velocity 81.0 cm/s Mitral E to A Ratio 0.7 MV Deceleration Time 230.1 ms TR Peak Velocity 250.4 cm/s TR Peak Gradient 25.1 mmHg Right Ventricular Systolic Press 28.8 mmHg FINDINGS Left Ventricle Left ventricular ejection fraction is estimated at 30-35 %. Mildly increased posterior wall thickness. Left ventricular cavity size normal. [place] hypokinetic. Hypokinetic septum. Moderately reduced global left ventricular systolic function. Right Ventricle Mild right ventricular dilatation. Right ventricular systolic pressure within normal limits. Right Atrium Normal right atrial size. Negative agitated saline bubble study for right to left shunt. Left Atrium Mild left atrial dilatation. Mitral Valve Structurally normal mitral valve. Mild mitral regurgitation. No mitral stenosis. Aortic Valve Trileaflet aortic valve. No aortic valve stenosis or regurgitation. Tricuspid Valve Structurally normal tricuspid valve. Moderate tricuspid regurgitation. No tricuspid stenosis. Pulmonic Valve Structurally normal pulmonic valve. Trace pulmonic regurgitation. No pulmonic stenosis. Pericardium No pericardial or pleural effusion. Aorta Normal size aortic root and proximal ascending aorta. CONCLUSIONS Left ventricular ejection fraction 30-35% with mainly apical hypokinesis with basal sparing. May be related to multivessel CAD versus Takotsubo's cardiomyopathy Negative bubble study Mild mitral regurgitation Moderate tricuspid regurgitation No pericardial effusion Previewed by: Dr. Kai Masterson DO (Electronically Signed) Final Date: 15 October 2024 12:32
[2024-10-15 16:52] LABS: Glucose,Whole Blood 152 mg/dL (70-110)
--- NOTE | 2024-10-15 16:56 | P.PN ---
Progress Note - Text Progress Note Date: 10/15/24 Chief Complaint: Very dizzy Is a pleasant 79-year-old patient who follows with Dr. Salgado. 2 years ago. Patient is on Keytruda. 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 She follows with oncologist Dr. Jenaro Gary. About 3 AM she woke up to walk her dogs felt extremely dizzy everything was spinning around. Also vomited twice. Denies any infection symptoms. No ringing in the ears. She felt much worse with moving her head. Also having some double vision. Had not really been able to walk since then because of severe dizziness and presented to the ER. Initial CT scan in the ER unremarkable. No chest pain palpitation. October 15: MRI has confirmed cerebellar stroke. Patient is recliner. Tired. Still has some dizziness. Decreased appetite. PT OT on the case. Spoke to the patient will need to rehab. Getting aspirin Lipitor. Continues to have poor standing balance. Maximum assist. Active Medications Aspirin (Aspirin 81 Mg) 81 mg PO DAILY [facility] Last Admin: 10/15/24 08:44 Dose: 81 mg Atorvastatin Calcium (Atorvastatin 40 Mg Tab) 40 mg PO HS [facility] Last Admin: 10/14/24 20:08 Dose: 40 mg Dextrose/Water (Dextrose 50% Syringe 50 Ml) 25 ml IVP PER PROTOCOL PRN; Protocol PRN Reason: Hypoglycemia Dextrose/Water (Dextrose 50% Syringe 50 Ml) 50 ml IVP PER PROTOCOL PRN; Protocol PRN Reason: Hypoglycemia Duloxetine HCl (Duloxetine Hcl 30 Mg Isra.) 30 mg PO DAILY [facility] Last Admin: 10/15/24 08:43 Dose: 30 mg Enoxaparin Sodium (Enoxaparin 40 Mg/0.4 Ml Syringe) 40 mg SQ DAILY [facility] Last Admin: 10/15/24 08:44 Dose: 40 mg Sodium Chloride (Saline 0.9%) 1,000 mls @ 75 mls/hr IV .[id number] [facility] Last Admin: 10/14/24 22:45 Dose: Not Given Insulin Aspart (Insulin Aspart (Novolog) 100 Unit/Ml Vial) 0 unit SQ AC-TID [facility]; Protocol Last Admin: 10/15/24 11:48 Dose: 1 unit Lisinopril (Lisinopril 2.5 Mg Tab) 2.5 mg PO DAILY [facility] Last Admin: 10/15/24 08:43 Dose: 2.5 mg Meclizine HCl (Meclizine 25 Mg Tab) 25 mg PO TID [facility] Stop: 10/21/24 21:59 Last Admin: 10/15/24 08:43 Dose: 25 mg Morphine Sulfate (Morphine Sulfate Er 30 Mg Tablet) 30 mg PO Q12HR [facility]; Protocol Last Admin: 10/15/24 08:43 Dose: 30 mg Naloxone HCl (Naloxone 0.4 Mg/Ml 1 Ml Vial) 0.2 mg IV Q2M PRN PRN Reason: Opioid Reversal Oxycodone/Acetaminophen (Oxycodone-Apap 10-325mg 1 Each Tab) 1 each PO BID PRN PRN Reason: Pain Prednisone (Prednisone 5 Mg Tab) 5 mg PO DAILY [facility] Last Admin: 10/15/24 08:43 Dose: 5 mg Repaglinide (Repaglinide 1 Mg Tab) 0.5 mg PO AC-TID [facility] Last Admin: 10/15/24 11:48 Dose: 0.5 mg Social history: Patient smoked for 46 years. Three-quarter pack a day. Stopped in 2012. No alcohol. Lives alone Physical examination: VITAL SIGNS: 97.7, 97, 15, 154 x 80, 97% on 2 L GENERAL: BMI 19.3, laying on her side in recliner EYES: Pupils equal. Conjunctiva shilpi l. HEENT: External appearance of nose and ears normal, oral cavity grossly normal. NECK: JVD not raised; masses not palpable. HEART: First and second heart sounds are normal; no edema. LUNGS: Respiratory rate normal; decreased breath sounds. ABDOMEN: Soft, nontender, liver spleen not palpable, no masses palpable. PSYCH: [Alert and oriented x3; mood and affect tired l. MUSCULOSKELETAL:No Clubbing/cyanosis;muscles-grossly intact. Loss of subcutaneous fat. Decreased muscle mass. OA NEUROLOGICAL: Some nystagmus looking to the right. Left-sided dysdiadochokinesia and past-pointing.. Poor standing balance INVESTIGATIONS, reviewed in the clinical context: 2D echocardiogram: EF 30-35%. Hypokinetic agosto. MRI brain: Acute ischemic change within the inferior medial cerebellum. Lacunar infarct type acute change may be within the posterior and mid left cerebellum. October 15: White count 15.1 hemoglobin 13.4 potassium 3.9 creatinine 0.59 October 14: White count 12.7 hemoglobin 14.9 platelets 462 sodium 137 potassium 3.9 creatinine 0.66 glucose 253 lactic acid 3.7 repeat 1.3 UA: Glucose 4+ Chest x-ray film personally reviewed by me-right diaphragm elevated. Some interstitial prominence Head cervical spine CT: Unremarkable EKG tracing personally reviewed by me-ST segment depression in inferolateral leads. CT angiography head and neck: COPD with emphysema. Interstitial changes. 65% proximal right ICA stenosis. Mild 40% proximal left ICA stenosis. Nondominant left vertebral artery with possible moderate to severe stenosis at its origin. Increased soft tissue density in the pericarinal and AP window region. Other details in the full report Assessment plan: -Acute ischemic stroke, inferior medial cerebellum. Lacunar infarct type acute change may be within the posterior and mid left cerebellum MRI findings above PT OT. Aspirin Lipitor. -Lung cancer. Being treated with Keytruda. Oncologist Dr. Salvador Gary -Essential hypertension Zestril 2.5 mg a day -Hyperlipidemia Lipitor 20 mg nightly -COPD no prior smoker Diabetes mellitus type 2 Prandin 0.5 mg AC 3 times daily -Chronic pain Continue morphine sulfate 30 mg every 12 and Percocet as needed -Full code Discussed with patient and Dr. Johnson from neurology. Looking for rehab placement. Past Medical History Past Medical History: Cancer, Diabetes Mellitus, Hyperlipidemia, Hypertension, Skin Disorder Additional Past Medical History / Comment(s): ECZEMA,HTN-NO LONGER ON MEDS, 5 THYROID NODULES. 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 Past Anesthesia/Blood Transfusion Reactions: No Reported Reaction Additional Past Anesthesia/Blood Transfusion Reaction / Comment(s): "partially paralyzed vocal cord" Past Psychological History: Anxiety, Depression Smoking Status: Former smoker
--- NOTE | 2024-10-15 17:43 | P.PN ---
Subjective Progress Note Date: 10/15/24 I am following up with the patient and she feels about the same. Objective - Vital Signs Vital signs: Vital Signs Temp 97.7 F 10/15/24 15:33 Pulse 97 10/15/24 15:33 Resp 15 10/15/24 15:33 BP 154/80 10/15/24 15:33 Pulse Ox 95 10/15/24 17:05 FiO2 Intake & Output 10/14/24 10/15/24 10/15/24 18:59 06:59 18:59 Intake Total 100 Balance 100 Weight 59.421 kg Intake: Oral 100 Other: # Voids 1 # Bowel Movements 1 0 - Exam General: Sitting in a recliner chair and is not in acute distress. Neuro: Patient is awake alert oriented to self place and time. Is following simple commands. No aphasia no neglect. Pupils are round equal reactive to light. Pupils are round 3 mm bilaterally. Visual buckley are full to confrontation. Ocular movement patient has nystagmus looking to the left seems more more rotatory. Patient has diplopia over the left. Normal facial sensation to touch. Has mild left nasolabial flattening. No dysarthria. Tongue is midline moves [id number] with any difficulty. Motor the strength is 5 out of 5 throughout. Normal tone and bulk Sensation is normal to touch Cerebellar: There is ataxia on the left [id number]. Sensation is normal to touch Some of the workup during this hospital visit consisted of: I reviewed the lab workup. CT head and cervical is reported as there is no acute fracture or dislocation evident in the cervical spine. No acute intracranial hemorrhage or midline shift. I Reviewed the CT head and agree there is no acute or subacute ischemic stroke. CTA head: Reported as increased soft tissue density in pericardial and AP window region. Subcorneal soft tissue thickening now up to 1.8 cm, new from prior. Medial left upper lobe nodule currently 2.3 cm versus 2.0 cm on 07/27/2024. Recommend oncology follow-up for appropriate surveillance and to exclude early progression. COPD with moderate emphysema and some 4 points interstitial change. Correlate to exclude fluid overload. Moderate atherosclerotic change at the right carotid bifurcation with a moderate 65% proximal right ICA mild 40% proximal left ICA. Nondominant left vertebral artery with possible moderate to severe stenosis at its origin. CTA neck: Moderate atherosclerotic narrowing proximal V4 segment dominant right vertebral artery. Mild atherosclerotic narrowing throughout the bilateral intracranial ICA. No large vessel intracranial arterial occlusion, significant stenosis or aneurysm changes seen. MRI Brain w/ and w/o: There appears to be acute ischemic changes within the inferior medial cerebellum. Lacunar infarct type acute changes may be within the posterior mid left cerebellum. Chronic appearing periventricular and brainstem deep white matter type ischemic changes. No suspicious changes for metastasis. 2D echo: Ventricular ejection fraction of 30 to 35% with mainly apical hypok inesis with basal sparing. May be related to multivessel coronary artery disease versus Takotsubo cardiomyopathy. Negative bubble study. - Labs CBC & Chem 7: 10/15/24 06:39 10/15/24 06:39 Labs: Abnormal Lab Results - Last 24 Hours (Table) 10/14/24 10/15/24 10/15/24 Range/Units 20:15 05:47 06:39 WBC 15.1 H (3.8-10.6) k/uL Neutrophils # 12.5 H (1.3-7.7) k/uL Chloride (98-107) mmol/L Carbon Dioxide (22-30) mmol/L Glucose (74-99) mg/dL POC Glucose (mg/dL) 175 H 197 H (70-110) mg/dL 10/15/24 10/15/24 10/15/24 Range/Units 06:39 11:24 16:50 WBC (3.8-10.6) k/uL Neutrophils # (1.3-7.7) k/uL Chloride 108 H (98-107) mmol/L Carbon Dioxide 21 L (22-30) mmol/L Glucose 176 H (74-99) mg/dL POC Glucose (mg/dL) 157 H 152 H (70-110) mg/dL Assessment and Plan Assessment: This is a 79-year-old woman with history of lung cancer and is on chemotherapy who presented emergency department because of dizziness, nausea vomiting, diplopia of the left eye. On examination patient had ataxia on the [id number] and had nystagmus looking to the left. Acute ischemic stroke (inferior medial cerebellum). Seems embolic. Cardiomyopathy (EF 3035%) with apical hypokinesis. May be related to mul tivessel coronary artery disease versus Takotsubo cardiomyopathy on 2 echo Underlying history of lung cancer and it seems that her lung nodule is larger on this current CT reported ICA stenosis is moderate of 65% proximal and this seems more asymptomatic while left ICA is 40% considered mild History of lung cancer and patient is on chemotherapy Hypertension Hyperlipidemia Diabetes mellitus Plan: Patient started on aspirin 81 mg daily today and was given aspirin 325mg once yesterday. This the patient was not on any antiplatelet. I will avoid dual antiplatelet for now in case she has significant edema and needs intervention. Patient is on Lipitor 40 mg nightly and that sufficient for secondary prophylaxis I will get a repeat CT of the head tomorrow to assess for any edema. I notified the nurse if patient's condition deteriorates then recommend the patient to be transferred to ICU immediately. She stated the patient's condition is stable so far. Recommend avoiding any opiates/sedation for better neurological examination. Seems the patient is on morphine for pain because of her cancer and notified nurse if possible to avoid that. Ordered lipid panel. I started the patient on Antivert 25 mg 1 tablet 3 times daily scheduled. Consulted PT and OT. Consulted [facility]. Recommend oncology consultation Recommend cardiology consultation. Will defer the rest of the medical management to primary and other specialist For DVT prophylaxis the patient is on Lovenox for Plan discussed with patient primary attending. Also discussed with her nurse. Time with Patient: Less than 30
[2024-10-15 21:16] LABS: Glucose,Whole Blood 149 mg/dL (70-110)
[2024-10-15 23:51] LABS: Glucose,Whole Blood 137 mg/dL (70-110)
[2024-10-16 02:57] LABS: LDL Cholesterol,Calculated 53.5 mg/dL (0.0-131.0)
[2024-10-16 05:48] LABS: Glucose,Whole Blood 158 mg/dL (70-110)
--- NOTE | 2024-10-16 06:37 | CT ---
EXAMINATION TYPE: CT brain wo con DATE OF EXAM: 10/16/2024 COMPARISON: Prior CT and MRI October 14, 2024 CLINICAL INDICATION: Female, 79 years old with history of AMS; PHH, AMS TECHNIQUE: CT scan of the head is performed without contrast. CT DLP: 1096.[address] CTDI: 49 mGy Automated exposure control for dose reduction was used. FINDINGS: There is no acute intracranial hemorrhage or midline shift identified. There is mild diff use ventricular and sulcal prominence redemonstrated. More prominent ventricular dilatation is noted. There is moderate to severe low-attenuation in the deep and periventricular white matter is redemons trated. Large subacute infarct in the cerebellum is again seen correlating with most recent MRI great est involving the right portion. The infarct measures approximately 8.1 x 5.3 cm axial image 11 with mass effect along the middle to inferior brainstem noted. The globes are intact. Opacified right fron tonia sinus is redemonstrated. IMPRESSION: No acute intracranial hemorrhage or midline shift. There is evolving large subacute cere bellar infarct with local mass effect noted. This is causing developing hydrocephalus due to mass ef fect on CSF flow on and below the fourth ventricle. [facility], , 10/16/2024 6:34 AM
[2024-10-16 08:00] LABS: Glucose,Whole Blood 169 mg/dL (70-110)
[2024-10-16 08:43] LABS: Glucose,Whole Blood 167 mg/dL (70-110)
[2024-10-16] MEDS: MANNITOL 20% IV ONE (08:43)
[2024-10-16] MEDS: SALINE IV ONE (08:43)
[2024-10-16] MEDS ORDERED: Potassium Replacement Protocol 1 EACH MISC MISCELLANE PRN (09:07)
[2024-10-16] MEDS ORDERED: Magnesium Replacement Protocol 1 EACH MISC MISCELLANE PRN (09:07)
[2024-10-16 09:46] LABS: Basophils % (A) 0 %; Eosinophils % (A) 0 %; HCT 45.5 % (34.0-46.0); HGB 14.7 gm/dL (11.4-16.0); Lymphocytes # (A) 0.9 k/uL (1.0-4.8); Lymphocytes % (A) 5 %; MCH 32.2 pg (25.0-35.0); MCHC 32.4 g/dL (31.0-37.0); MCV 99.3 fL (80.0-100.0); Monocytes # (A) 0.7 k/uL (0-1.0); Monocytes % (A) 4 %; Neutrophils % (A) 90 %; Platelet Count 419 k/uL (150-450); RBC 4.58 m/uL (3.80-5.40)
[2024-10-16] MEDS: SUCCINYLCHOLINE CHLORIDE 200 MG/10 ML VIAL IV ONE (09:57)
[2024-10-16] MEDS: PROPOFOL 10 MG/ML 20 ML VIAL IV ONE ×2 (09:57→11:17)
[2024-10-16] MEDS: MORPHINE SULFATE 4 MG/ML SYRINGE IVP ONE (09:57)
[2024-10-16 10:05] LABS: African American GFR (CKD) >90 (>60 ml/min/1.73 sqM); Anion Gap 17 mmol/L; Blood Urea Nitrogen 15 mg/dL (7-17); Calcium 9.3 mg/dL (8.4-10.2); Carbon Dioxide 15 mmol/L (22-30); Chloride 102 mmol/L (98-107); Glucose 175 mg/dL (74-99); Magnesium 1.6 mg/dL (1.6-2.3); Non-African American GFR(CKD) 90 (>60 ml/min/1.73 sqM); Potassium 3.4 mmol/L (3.5-5.1); Sodium 134 mmol/L (137-145)
[2024-10-16] MEDS: CISATRACURIUM 2 MG/ML 5 ML VIAL IV ONE ×2 (10:07→11:17)
[2024-10-16 10:29] VITALS: BMI 19.3
[2024-10-16 10:55] LABS: ABG Base Excess -6.9 mmol/L; ABG HCO3 19 mmol/L (21-25); ABG PCO2 39 mmHg (35-45); ABG TCO2 20 mmol/L (19-24)
--- NOTE | 2024-10-16 11:13 | XR ---
EXAMINATION TYPE: XR chest 1V portable DATE OF EXAM: 10/16/2024 10:44 AM COMPARISON: Chest radiographs from 10/14/2024 CLINICAL INDICATION: Female, 79 years old with history of Tube placement; TECHNIQUE: XR chest 1V portable Frontal view of the chest. FINDINGS: Lungs/Pleura: There is no evidence of pleural effusion, focal consolidation, or pneumothorax. Pulmonary vascularity: Unremarkable. Heart/mediastinum: Cardiomediastinal silhouette is unremarkable. Musculoskeletal: No acute osseous pathology. Other findings: None Lines/Tubes: Endotracheal tube with distal tip 2.9 cm above the sandi. Nasogastric tube with its distal tip and side-port projecting under the diaphragm. Right internal jugular central venous catheter with distal tip at the cavoatrial junction. IMPRESSION: 1. No acute cardiopulmonary disease/process. 2. Support tubes and line in appropriate position. [facility], , 10/16/2024 11:11 AM
[2024-10-16] MEDS: CLEVIDIPINE BUTYRATE 25 MG in EMPTY BAG 1 BAG IV SCH (11:15)
[2024-10-16 11:19] LABS: ABG PO2 >420 mmHg (83-108)
[2024-10-16 11:20] LABS: Allen Test Performed? NO
[2024-10-16] MEDS: CHLORHEXIDINE GLUCONATE 15 ML CUP MUCOUS MEM SCH (11:21)
[2024-10-16 11:33] LABS: Glucose,Whole Blood 183 mg/dL (70-110)
[2024-10-16] MEDS: POTASSIUM BICARBONATE/CIT AC 20 MEQ TABLET.EFF NG-TUBE SCH ×2 (11:39→23:03)
[2024-10-16] MEDS: MAGNESIUM SULFATE-D5W PMX 1 GM in DEXTROSE/WATER 1 100ML.BAG IVPB SCH (11:40)
--- NOTE | 2024-10-16 12:35 | P.PN ---
Subjective Progress Note Date: 10/16/24 I am following-up with patient, and it seems the patient mentation declined. Patient is only responsive to painful stimuli. So, CT head was repeated and it showed large subacute cerebellar infart with mass effect. An A-team was called and the patient was intubated and taken to ICU. I ordered one time Mannitol. Objective - Vital Signs Vital signs: Vital Signs Temp 99.4 F 10/16/24 12:00 Pulse 92 10/16/24 12:00 Resp 31 H 10/16/24 12:00 BP 136/78 10/16/24 12:00 Pulse Ox 93 L 10/16/24 12:00 FiO2 40 10/16/24 12:02 Intake & Output 10/15/24 10/16/24 10/16/24 18:59 06:59 18:59 Intake Total 115 224 Output Total 1530 Balance 115 -1306 Weight 59.421 kg Intake: IV 224 KVO 50 Magnesium Sulfate-D5w Pmx 100 1 gm In Dextrose/Water 1 100ml.bag @ 100 mls/hr IVPB Q1H FREDY Rx#: [id number] Mannitol 20% Pmx 74 ml In 74 Saline 1 500ml.bag @ 74 mls/hr IV ONCE ONE Rx#: [id number] Oral 115 Output: Urine 1530 Other: Voiding Method Indwelling Catheter # Voids 1 # Bowel Movements 0 ABP, PAP, CO, CI - Last Documented Arterial Blood Pressure 140/65 - Exam General: Lying in bed and does not appear in acute distress. Lung: Intubated on a ventilator. Neuro: Very limited. Was given Nimbex one time and is On IV Propofol. Patient is comatose (GCS 3, E1, VT1, M1). Pupils are pinpoint, round. Some of the workup during this hospital visit consisted of: I reviewed the lab workup. CT head and cervical is reported as there is no acute fracture or dislocation evident in the cervical spine. No acute intracranial hemorrhage or midline shift. I Reviewed the CT head and agree there is no acute or subacute ischemic stroke. CTA head: Reported as increased soft tissue density in pericardial and AP window region. Subcorneal soft tissue thickening now up to 1.8 cm, new from prior. Medial left upper lobe nodule currently 2.3 cm versus 2.0 cm on 07/27/2024. Recommend oncology follow-up for appropriate surveillance and to exclude early progression. COPD with moderate emphysema and some 4 points interstitial change. Correlate to exclude fluid overload. Moderate atherosclerotic change at the right carotid bifurcation with a moderate 65% proximal right ICA mild 40% proximal left ICA. Nondominant left vertebral artery with possible moderate to severe stenosis at its origin. CTA neck: Moderate atherosclerotic narrowing proximal V4 segment dominant right vertebral artery. Mild atherosclerotic narrowing throughout the bilateral intracranial ICA. No large vessel intracranial arterial occlusion, significant stenosis or aneurysm changes seen. MRI Brain w/ and w/o: There appears to be acute ischemic changes within the inferior medial cerebellum. Lacunar infarct type acute changes may be within the posterior mid left cerebellum. Chronic appearing periventricular and brainstem deep white matter type ischemic changes. No suspicious changes for metastasis. Lipid panel: TG 188, cholestrol 139, LDL 53 and HDL 47. 2D echo: Ventricular ejection fraction of 30 to 35% with mainly apical hypokinesis with basal sparing. May be related to multivessel coronary artery disease versus Takotsubo cardiomyopathy. Negative bubble study. Repeat CT head: No acute intracranial hemorrhage or midline shift. There is evolving large subacute cerebellar infarct with local mass effect noted. This is causing developing hydrocephalus due to mass effect on the CSF flow and below the fourth ventricle. - Labs CBC & Chem 7: 10/16/24 09:34 10/16/24 09:34 Labs: Abnormal Lab Results - Last 24 Hours (Table) 10/15/24 10/15/24 10/15/24 Range/Units 06:39 16:50 21:15 WBC (3.8-10.6) k/uL Neutrophils # (1.3-7.7) k/uL Lymphocytes # (1.0-4.8) k/uL ABG pH (7.35-7.45) ABG pO2 (83-108) mmHg ABG HCO3 (21-25) mmol/L ABG O2 Saturation (94-97) % Sodium (137-145) mmol/L Potassium (3.5-5.1) mmol/L Carbon Dioxide (22-30) mmol/L Glucose (74-99) mg/dL POC Glucose (mg/dL) 152 H 149 H (70-110) mg/dL Triglycerides 188.00 H (0.00-149.00) mg/dL 10/15/24 10/16/24 10/16/24 Range/Units 23:50 05:46 07:58 WBC (3.8-10.6) k/uL Neutrophils # (1.3-7.7) k/uL Lymphocytes # (1.0-4.8) k/uL ABG pH (7.35-7.45) ABG pO2 (83-108) mmHg ABG HCO3 (21-25) mmol/L ABG O2 Saturation (94-97) % Sodium (137-145) mmol/L Potassium (3.5-5.1) mmol/L Carbon Dioxide (22-30) mmol/L Glucose (74-99) mg/dL POC Glucose (mg/dL) 137 H 158 H 169 H (70-110) mg/dL Triglycerides (0.00-149.00) mg/dL 10/16/24 10/16/24 10/16/24 Range/Units 08:41 09:34 09:34 WBC 20.0 H (3.8-10.6) k/uL Neutrophils # 18.0 H (1.3-7.7) k/uL Lymphocytes # 0.9 L (1.0-4.8) k/uL ABG pH (7.35-7.45) ABG pO2 (83-108) mmHg ABG HCO3 (21-25) mmol/L ABG O2 Saturation (94-97) % Sodium 134 L (137-145) mmol/L Potassium 3.4 L (3.5-5.1) mmol/L Carbon Dioxide 15 L (22-30) mmol/L Glucose 175 H (74-99) mg/dL POC Glucose (mg/dL) 167 H (70-110) mg/dL Triglycerides (0.00-149.00) mg/dL 10/16/24 10/16/24 Range/Units 10:53 11:32 WBC (3.8-10.6) k/uL Neutrophils # (1.3-7.7) k/uL Lymphocytes # (1.0-4.8) k/uL ABG pH 7.30 L (7.35-7.45) ABG pO2 >420 H (83-108) mmHg ABG HCO3 19 L (21-25) mmol/L ABG O2 Saturation 100.0 H (94-97) % Sodium (137-145) mmol/L Potassium (3.5-5.1) mmol/L Carbon Dioxide (22-30) mmol/L Glucose (74-99) mg/dL POC Glucose (mg/dL) 183 H (70-110) mg/dL Triglycerides (0.00-149.00) mg/dL Assessment and Plan Assessment: This is a 79-year-old woman with history of lung cancer and is on chemotherapy who presented emergency department because of dizziness, nausea vomiting, diplopia of the left eye. On examination patient had ataxia on the [id number] and had nystagmus looking to the left. Acute ischemic stroke (large inferior medial cerebellum). Seems embolic. Cytoxic edma with mass effect and some hydrocephalus due to above Encephalopathy due to above that resulted patient to be intubated and on ventilator. Cardiomyopathy (EF 3035%) with apical hypokinesis. May be related to multivessel coronary artery disease versus Takotsubo cardiomyopathy on 2 echo Underlying history of lung cancer and it seems that her lung nodule is larger on this current CT reported ICA stenosis is moderate of 65% proximal and this seems more asymptomatic while left ICA is 40% considered mild History of lung cancer and patient is on chemotherapy Hypertension Hyperlipidemia Diabetes mellitus Plan: Patient started on aspirin 81 mg daily today and was given aspirin 325mg once yesterday. This the patient was not on any antiplatelet. I will avoid dual antiplatelet for now in case she has significant edema and needs intervention. Patient is on Lipitor 40 mg nightly and that sufficient for secondary prophylaxis I gave patient on time Mannitol for edema. Will start her on 3% hypertonic saline for edema. ContinueAntivert 25 mg 1 tablet 3 times daily scheduled. Consulted PT and OT. Consulted [facility]. Recommend oncology consultation Recommend cardiology consultation. Will defer the rest of the medical management to primary and other specialist For DVT prophylaxis the patient is on Lovenox for Plan discussed with ICU nurse. Time with Patient: Less than 30
[2024-10-16] MEDS: SODIUM CHLORIDE 3%(HYPERTONIC) 500 ML IV SCH (13:26)
--- NOTE | 2024-10-16 16:30 | P.CNPUL ---
History of Present Illness Consult date: 10/16/24 Requesting physician: Paul Flores Reason for consult: other (Acute CVA and agonal bleed shortness of breath) Chief complaint: Dizziness and weakness History of present illness: This is a 79-year-old female admitted on 10/14/2024 she was admitted through the ER when she presented with dizziness, off balance, and generalized weakness. It all started around 3 AM patient felt dizzy and she also had episodes of nausea and vomiting also had double vision over her left eye. And she was generally weak. She felt off balance. Has a history of underlying lung cancer on chemotherapy, CT of the brain on admission showed no intracranial hemorrhage or midline shift, and no evidence of acute or subacute ischemic stroke. MRI of the brain showed acute ischemic change within the inferior medial cerebellum lacunar infarct type acute change may be within the posterior mid left cerebellum. There was also chronic appearing periventricular and brainstem deep white matter ischemic change noted. Patient was seen by neurology on consultation, and over the last 24 hours, her neurological status has deteriorated. Repeat CT of the head showed large subacute cerebellar infarct with mass effect patient was brought to the ICU by the a team this morning, and I was made aware of the patient as soon as she arrived to the ICU. Upon my initial evaluation patient was having Mina-Lora breathing and episodes of apnea she was not responsive to any stimuli, hence went ahead and intubated the patient, placed on mechanical ventilation. Patient was placed on assist-control rate of 20 tidal volume 400 FiO2 100% initially and PEEP of 5. Earlier the patient received mannitol ordered by the neurologist. Her ABG after intubation showed a pO2 of 420 pCO2 40 pH of 7.30. Her WBC count is 20 hemoglobin 14.7 electrolytes are normal, bicarb is 15 BUN is 15 creatinine 0.57. X-ray postintubation showed no evidence of acute cardiopulmonary process and there was adequate placement of all the lines including endotracheal tube, central line, and nasogastric tube Review of Systems ROS unobtainable: due to mental status Past Medical History Past Medical History: Cancer, Diabetes Mellitus, Hyperlipidemia, Hypertension, Skin Disorder Additional Past Medical History / Comment(s): ECZEMA,HTN-NO LONGER ON MEDS, 5 THYROID NODULES. 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 Past Anesthesia/Blood Transfusion Reactions: No Reported Reaction Additional Past Anesthesia/Blood Transfusion Reaction / Comment(s): "partially paralyzed vocal cord" Past Psychological History: Anxiety, Depression Smoking Status: Former smoker Past Alcohol Use History: None Reported Additional Past Alcohol Use History / Comment(s): STARTED SMOKING 1967 QUIT SMOKING 2012 SMOKED 3/4 PPD (PRIOR SHE QUIT ON AND OFF ) Past Drug Use History: None Reported - Past Family History Mother Family Medical History: Cancer Additional Family Medical History / Comment(s): lung Sister(s) Family Medical History: Cancer Father Family Medical History: Myocardial Infarction ([place]) Medications and Allergies Home Medications Medication Instructions Recorded Confirmed Type Morphine Sulfate [Morphine Sulfate 30 mg PO Q12H 09/15/21 10/14/24 History ER] oxyCODONE HCL/ACETAMINOPHEN 1 tab PO BID PRN 09/15/21 10/14/24 History [Percocet 10-325 mg] Atorvastatin [Lipitor] 20 mg PO HS 11/29/21 10/14/24 History DULoxetine HCL [Cymbalta] 30 mg PO DAILY 10/14/24 10/14/24 History Repaglinide [Prandin] 0.5 mg PO AC-TID 10/14/24 10/14/24 History lisinopriL [Zestril] 2.5 mg PO DAILY 10/14/24 10/14/24 History predniSONE 5 mg PO DAILY 10/14/24 10/14/24 History Allergies Allergy/AdvReac Type Severity Reaction Status Date / Time adhesive Allergy SKIN Verified 10/14/24 10:52 BLISTERS codeine AdvReac Nausea & Verified 10/14/24 10:52 Vomiting Physical Exam Vitals: Vital Signs Temp Pulse Pulse Resp BP BP Pulse Ox 10/16/24 16:00 99.6 F 97 29 H 167/93 96 10/16/24 15:45 97 29 H 167/93 96 10/16/24 15:30 96 29 H 167/93 96 10/16/24 15:15 96 30 H 167/93 96 10/16/24 15:00 98 29 H 165/94 96 10/16/24 14:45 96 29 H 96 10/16/24 14:30 96 29 H 96 10/16/24 14:15 96 31 H 96 10/16/24 14:00 96 32 H 142/88 96 10/16/24 13:45 95 30 H 96 10/16/24 13:30 92 29 H 96 10/16/24 13:15 96 30 H 96 10/16/24 13:00 94 33 H 147/85 95 10/16/24 12:45 92 30 H 95 10/16/24 12:30 94 30 H 95 10/16/24 12:15 92 31 H 93 L 10/16/24 12:02 10/16/24 12:00 99.4 F 92 31 H 136/78 93 L 10/16/24 11:45 95 30 H 91 L 10/16/24 11:30 86 28 H 160/89 92 L 10/16/24 11:15 84 29 H 155/89 89 L 10/16/24 11:13 10/16/24 11:00 95 26 H 162/92 98 10/16/24 10:56 10/16/24 10:45 93 20 141/81 98 10/16/24 10:30 89 20 101/67 98 10/16/24 10:15 93 20 166/87 100 10/16/24 10:00 105 H 33 H 141/72 85 L 10/16/24 09:52 10/16/24 09:45 80 26 H 149/78 90 L 10/16/24 09:30 81 43 H 169/89 93 L 10/16/24 09:15 105 H 25 H 171/93 96 10/16/24 09:00 106 H 24 179/100 94 L 10/16/24 08:45 104 H 36 H 192/104 93 L 10/16/24 08:32 100.0 F H 103 H 32 H 96 10/16/24 04:00 76 18 165/83 98 10/15/24 23:47 76 18 148/118 98 10/15/24 20:16 98 F 80 26 H 161/76 95 10/15/24 17:05 95 FiO2 10/16/24 16:00 40 10/16/24 15:45 40 10/16/24 15:30 10/16/24 15:15 10/16/24 15:00 10/16/24 14:45 10/16/24 14:30 10/16/24 14:15 10/16/24 14:00 10/16/24 13:45 10/16/24 13:30 10/16/24 13:15 10/16/24 13:00 10/16/24 12:45 10/16/24 12:30 10/16/24 12:15 10/16/24 12:02 40 10/16/24 12:00 40 10/16/24 11:45 10/16/24 11:30 10/16/24 11:15 10/16/24 11:13 40 10/16/24 11:00 40 10/16/24 10:56 40 10/16/24 10:45 10/16/24 10:30 10/16/24 10:15 100 10/16/24 10:00 100 10/16/24 09:52 100 10/16/24 09:45 10/16/24 09:30 10/16/24 09:15 10/16/24 09:00 10/16/24 08:45 10/16/24 08:32 10/16/24 04:00 10/15/24 23:47 10/15/24 20:16 10/15/24 17:05 Intake and Output 10/16/24 10/16/24 10/16/24 06:59 14:59 22:59 Intake Total 398.695 140 Output Total 1655 200 Balance -1256.305 -60 Intake: IV 394 140 KVO 70 40 Magnesium Sulfate-D5w Pmx 200 1 gm In Dextrose/Water 1 100ml.bag @ 100 mls/hr IVPB Q1H [facility] Rx#: [id number] Mannitol 20% Pmx 74 ml In 74 Saline 1 500ml.bag @ 74 mls/hr IV ONCE ONE Rx#: [id number] Sodium Chloride 3%( 50 100 Hypertonic) 500 ml @ 50 mls/hr IV .Q10H [facility] Rx#: [id number] Intake, IV Titration 4.695 Amount propofoL 1,000 mg In 4.695 Empty Bag 1 bag @ 15 MCG/ KG/MIN 5.348 mls/hr IV . [id number] [facility] Rx#:[id number] Output: Urine 1655 200 Other: Voiding Method Indwelling Catheter Weight 59.421 kg ABP, PAP, CO, CI - Last 8 Hours Arterial Blood Pressure 166/81 Arterial Blood Pressure 161/80 Arterial Blood Pressure 169/82 Arterial Blood Pressure 165/79 Arterial Blood Pressure 163/79 Arterial Blood Pressure 166/79 Arterial Blood Pressure 156/80 Arterial Blood Pressure 156/75 Arterial Blood Pressure 156/77 Arterial Blood Pressure 151/78 Arterial Blood Pressure 141/75 Arterial Blood Pressure 144/70 Arterial Blood Pressure 136/70 Arterial Blood Pressure 138/66 Arterial Blood Pressure 131/62 Arterial Blood Pressure 134/61 Arterial Blood Pressure 140/65 Arterial Blood Pressure 132/67 Arterial Blood Pressure 147/75 Arterial Blood Pressure 147/79 Arterial Blood Pressure 139/88 Arterial Blood Pressure 141/78 Arterial Blood Pressure 117/82 Arterial Blood Pressure 99/55 General: Revealed 79-year-old female with agonal and Mina-Lora breathing and episodes of apnea and responsive to verbal stimuli Skin: Skin is warm and dry and no rashes or lesions are noted. Eye: Pupils are equal, round and reactive to light, extra-ocular movements are intact; there is normal conjunctiva bilaterally. Ears, nose, mouth and throat: There are moist mucous membranes and no oral lesions. Neck: The neck is supple, there is no tenderness or JVD. Cardiovascular: Distant S1-S2, no S3 gallop Respiratory: Clear bilaterally no rhonchi no wheezes Abdomen: Soft nontender no megaly no rebound no guarding soft, non-distended, Musculoskeletal: Could not assess range of motion but no deformities noted Neurological: Unresponsive to verbal stimuli, patient is in agonal breathing and Mina-Lora breathing hence intubated immediately as soon as she arrived to the ICU Psychiatric: Could not assess Results - Laboratory Findings CBC and BMP: 10/16/24 09:34 10/16/24 12:46 ABG ABG pH 7.30 (7.35-7.45) L 10/16/24 10:53 ABG pCO2 39 mmHg (35-45) 10/16/24 10:53 ABG pO2 >420 mmHg (83-108) H 10/16/24 10:53 ABG O2 Saturation 100.0 % (94-97) H 10/16/24 10:53 PT/INR, D-dimer PT 10.7 sec (10.0-12.5) 10/14/24 04:50 INR 1.0 (<1.2) 10/14/24 04:50 Abnormal lab findings: Abnormal Labs 10/14/24 10/14/24 10/14/24 04:50 04:50 04:50 WBC 12.7 H Plt Count 462 H Neutrophils # Lymphocytes # APTT 19.7 L ABG pH ABG pO2 ABG HCO3 ABG O2 Saturation Sodium Potassium Chloride 108 H Carbon Dioxide 20 L Glucose 253 H POC Glucose (mg/dL) Plasma Lactic Acid Jackson Triglycerides Urine Glucose (UA) 10/14/24 10/14/24 10/14/24 04:50 06:29 20:15 WBC Plt Count Neutrophils # Lymphocytes # APTT ABG pH ABG pO2 ABG HCO3 ABG O2 Saturation Sodium Potassium Chloride Carbon Dioxide Glucose POC Glucose (mg/dL) 175 H Plasma Lactic Acid Jackson 3.7 H* Triglycerides Urine Glucose (UA) 4+ H 10/15/24 10/15/24 10/15/24 05:47 06:39 06:39 WBC 15.1 H Plt Count Neutrophils # 12.5 H Lymphocytes # APTT ABG pH ABG pO2 ABG HCO3 ABG O2 Saturation Sodium Potassium Chloride 108 H Carbon Dioxide 21 L Glucose 176 H POC Glucose (mg/dL) 197 H Plasma Lactic Acid Jackson Triglycerides Urine Glucose (UA) 10/15/24 10/15/24 10/15/24 06:39 11:24 16:50 WBC Plt Count Neutrophils # Lymphocytes # APTT ABG pH ABG pO2 ABG HCO3 ABG O2 Saturation Sodium Potassium Chloride Carbon Dioxide Glucose POC Glucose (mg/dL) 157 H 152 H Plasma Lactic Acid Jackson Triglycerides 188.00 H Urine Glucose (UA) 10/15/24 10/15/24 10/16/24 21:15 23:50 05:46 WBC Plt Count Neutrophils # Lymphocytes # APTT ABG pH ABG pO2 ABG HCO3 ABG O2 Saturation Sodium Potassium Chloride Carbon Dioxide Glucose POC Glucose (mg/dL) 149 H 137 H 158 H Plasma Lactic Acid Jackson Triglycerides Urine Glucose (UA) 10/16/24 10/16/24 10/16/24 07:58 08:41 09:34 WBC 20.0 H Plt Count Neutrophils # 18.0 H Lymphocytes # 0.9 L APTT ABG pH ABG pO2 ABG HCO3 ABG O2 Saturation Sodium Potassium Chloride Carbon Dioxide Glucose POC Glucose (mg/dL) 169 H 167 H Plasma Lactic Acid Jackson Triglycerides Urine Glucose (UA) 10/16/24 10/16/24 10/16/24 09:34 10:53 11:32 WBC Plt Count Neutrophils # Lymphocytes # APTT ABG pH 7.30 L ABG pO2 >420 H ABG HCO3 19 L ABG O2 Saturation 100.0 H Sodium 134 L Potassium 3.4 L Chloride Carbon Dioxide 15 L Glucose 175 H POC Glucose (mg/dL) 183 H Plasma Lactic Acid Jackson Triglycerides Urine Glucose (UA) 10/16/24 12:46 WBC Plt Count Neutrophils # Lymphocytes # APTT ABG pH ABG pO2 ABG HCO3 ABG O2 Saturation Sodium 135 L Potassium Chloride Carbon Dioxide Glucose POC Glucose (mg/dL) Plasma Lactic Acid Jackson Triglycerides Urine Glucose (UA) - Diagnostic Findings Chest x-ray: image reviewed (Noted in HPI) Additional studies: Brain CT and MRI as noted in HPI Assessment and Plan Assessment: Impression: Acute hypoxic respiratory failure secondary to acute CVA with Mina-Lora breathing Acute ischemic stroke inferior medial cerebellum/large, seems embolic in nature Vasogenic edema with mass effect and some hydrocephalus Severe LV dysfunction ejection fraction of 30 to 35% History of lung cancer, on chemotherapy no evidence of metastatic disease on CT of the brain or MRI Benign essential hypertension Dyslipidemia Type 2 diabetes Recommendation: Patient was intubated upon arrival to ICU Continue ventilatory support Continue mannitol as ordered by neurology Cardiology to evaluate her LV dysfunction and possibly consider THOMAS 3% hypertonic saline as recommended by neurology Prognosis is extremely poor, family may consider comfort care measures GI and DVT prophylaxis addressed nutritional support in the next 24 hours Hemodynamic support if necessary. Prognosis is extremely poor Critical care time is over 45 minutes not including time spent on procedures Time with Patient: Greater than 30
--- NOTE | 2024-10-16 17:07 | P.PN ---
Progress Note - Text Progress Note Date: 10/16/24 Chief Complaint: Very dizzy Is a pleasant 79-year-old patient who follows with Dr. Salgado. 2 years ago. Patient is on Keytruda. 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 She follows with oncologist Dr. Jenaro Gary. About 3 AM she woke up to walk her dogs felt extremely dizzy everything was spinning around. Also vomited twice. Denies any infection symptoms. No ringing in the ears. She felt much worse with moving her head. Also having some double vision. Had not really been able to walk since then because of severe dizziness and presented to the ER. Initial CT scan in the ER unremarkable. No chest pain palpitation. October 15: MRI has confirmed cerebellar stroke. Patient is recliner. Tired. Still has some dizziness. Decreased appetite. PT OT on the case. Spoke to the patient will need to rehab. Getting aspirin Lipitor. Continues to have poor standing balance. Maximum assist. October 16: ICU. Earlier today patient became less conscious. Mina-Lora breathing. Some apnea. Moved to the ICU. Patient had to be intubated. CT scan showed worsening of cerebellar stroke. And mass effect causing more hydrocephalus. Neurology Dr. Ocasio ordered hypertonic saline. Nurse informed me that they spoke to patient's daughter Oriana Donovan who is in [place]. Telephone number [phone]. The daughter stated that patient would not have wanted this and if there is no significant improvement patient will be terminally extubated. Patient is DNR. As per the nurse currently there is no obvious POA. Per the daughter is the next of kin. Patient has an OG tube. On IV propofol Active Medications Aspirin (Aspirin 81 Mg) 81 mg PO DAILY [facility] Last Admin: 10/16/24 11:14 Dose: Not Given Atorvastatin Calcium (Atorvastatin 40 Mg Tab) 40 mg PO HS [facility] Last Admin: 10/15/24 19:57 Dose: 40 mg Chlorhexidine Gluconate (Chlorhexidine Gluconate 15 Ml Cup) 15 ml MUCOUS MEM BID [facility] Last Admin: 10/16/24 11:21 Dose: 15 ml Dextrose/Water (Dextrose 50% Syringe 50 Ml) 25 ml IVP PER PROTOCOL PRN; Protocol PRN Reason: Hypoglycemia Dextrose/Water (Dextrose 50% Syringe 50 Ml) 50 ml IVP PER PROTOCOL PRN; Protocol PRN Reason: Hypoglycemia Duloxetine HCl (Duloxetine Hcl 30 Mg Capsule.Dr) 30 mg PO DAILY [facility] Last Admin: 10/16/24 11:14 Dose: Not Given Enoxaparin Sodium (Enoxaparin 40 Mg/0.4 Ml Syringe) 40 mg SQ DAILY [facility] Last Admin: 10/16/24 11:20 Dose: 40 mg Sodium Chloride (Saline 0.9%) 1,000 mls @ 75 mls/hr IV .[id number] [facility] Last Admin: 10/16/24 16:00 Dose: Not Given Clevidipine 25 mg/ IV Solution 50 mls @ 2 mls/hr IV .Q24H [facility]; Protocol Last Admin: 10/16/24 11:15 Dose: Not Given Propofol 1,000 mg/ IV Solution 100 mls @ 5.348 mls/hr IV .[id number] [facility]; Protocol Last Titration: 10/16/24 16:34 Dose: 5 mcg/kg/min, 1.783 mls/hr Sodium Chloride (Hypertonic) (Saline 3% (Hypertonic)) 500 mls @ 50 mls/hr IV .Q10H [facility]; Protocol Last Admin: 10/16/24 13:26 Dose: 50 mls/hr Insulin Aspart (Insulin Aspart (Novolog) 100 Unit/Ml Vial) 0 unit SQ AC-TID [facility]; Protocol Last Admin: 10/16/24 11:40 Dose: 1 unit Lisinopril (Lisinopril 2.5 Mg Tab) 2.5 mg PO DAILY [facility] Last Admin: 10/16/24 11:14 Dose: Not Given Meclizine HCl (Meclizine 25 Mg Tab) 25 mg PO TID [facility] Stop: 10/21/24 21:59 Last Admin: 10/16/24 13:21 Dose: Not Given Miscellaneous Information (Potassium Replacement Protocol 1 Each Misc) 1 each MISCELLANE DAILY PRN PRN Reason: Per Protocol Miscellaneous Information (Magnesium Replacement Protocol 1 Each Misc) 1 each MISCELLANE DAILY PRN; Protocol PRN Reason: Per Protocol Morphine Sulfate (Morphine Sulfate Er 30 Mg Tablet) 30 mg PO Q12HR [facility]; Protocol Last Admin: 10/16/24 11:14 Dose: Not Given Naloxone HCl (Naloxone 0.4 Mg/Ml 1 Ml Vial) 0.2 mg IV Q2M PRN PRN Reason: Opioid Reversal Oxycodone/Acetaminophen (Oxycodone-Apap 10-325mg 1 Each Tab) 1 each PO BID PRN PRN Reason: Pain Pantoprazole Sodium (Pantoprazole 40 Mg/10 Ml Vial) 40 mg IVP DAILY [facility] Prednisone (Prednisone 5 Mg Tab) 5 mg PO DAILY [facility] Last Admin: 10/16/24 11:15 Dose: Not Given Repaglinide (Repaglinide 1 Mg Tab) 0.5 mg PO AC-TID [facility] Last Admin: 10/16/24 13:20 Dose: Not Given Social history: Patient smoked for 46 years. Three-quarter pack a day. Stopped in 2012. No alcohol. Lives alone Physical examination: VITAL SIGNS: 99.6, 97, 29, 167/93, 96% on the ventilator GENERAL: BMI 19.3, intubated r EYES: Pupils equal. Conjunctiva shilpi l. HEENT: External appearance of nose and ears normal, oral cavity grossly normal. NECK: JVD not raised; masses not palpable. HEART: First and second heart sounds are normal; no edema. LUNGS: Respiratory rate normal; decreased breath sounds. ABDOMEN: Soft, nontender, liver spleen not palpable, no masses palpable. PSYCH: Sedated MUSCULOSKELETAL:No Clubbing/cyanosis;muscles-grossly intact. Loss of subcutaneous fat. Decreased muscle mass. OA NEUROLOGICAL: Patient sedated INVESTIGATIONS, reviewed in the clinical context: CT brain without contrast [October 16] evolving large subacute cerebellar infarct with local mass effect. Causing hydrocephalus due to mass effect. October 16: White count 20 hemoglobin 14.7 platelets 419 sodium 134 potassium 3.4 creatinine 0.57 2D echocardiogram: EF 30-35%. Hypokinetic agosto. MRI brain: Acute ischemic change within the inferior medial cerebellum. Lacunar infarct type acute change may be within the posterior and mid left cerebellum. October 15: White count 15.1 hemoglobin 13.4 potassium 3.9 creatinine 0.59 October 14: White count 12.7 hemoglobin 14.9 platelets 462 sodium 137 potassium 3.9 creatinine 0.66 glucose 253 lactic acid 3.7 repeat 1.3 UA: Glucose 4+ Chest x-ray film personally reviewed by me-right diaphragm elevated. Some interstitial prominence Head cervical spine CT: Unremarkable EKG tracing personally reviewed by me-ST segment depression in inferolateral leads. CT angiography head and neck: COPD with emphysema. Interstitial changes. 65% proximal right ICA stenosis. Mild 40% proximal left ICA stenosis. Nondominant left vertebral artery with possible moderate to severe stenosis at its origin. Increased soft tissue density in the pericarinal and AP window region. Other details in the full report Assessment plan: -Acute ischemic stroke, inferior medial cerebellum. Lacunar infarct type acute change may be within the posterior and mid left cerebellum Worsening of stroke clinically and radiological on October 16 this morning. Patient moved to the ICU.: Causing secondary hydrocephalus. Hypertonic saline ordered by neurology. Aspirin Lipitor. -Secondary hydrocephalus secondary to mass effect from acute cerebral stroke Hypertonic saline -Worsening sensorium/encephalopathy from stroke -Acute hypoxic respiratory failure with ventilator support due to stroke Patient intubated October 16 -Lung cancer. Being treated with Keytruda. Oncologist Dr. Salvador Gary -Essential hypertension Zestril 2.5 mg a day -Hyperlipidemia Lipitor 20 mg nightly -COPD no prior smoker Diabetes mellitus type 2 Prandin 0.5 mg AC 3 times daily -Chronic pain Continue morphine sulfate 30 mg every 12 and Percocet as needed -DNR -Patient's daughter Oriana Donovan telephone number [phone] lives in [place] is a next of kin. Apparently there is no personal right now with medical POA otherwise. Intubated. Propofol. Given hypertonic saline. Prognosis guarded. Past Medical History Past Medical History: Cancer, Diabetes Mellitus, Hyperlipidemia, Hypertension, Skin Disorder Additional Past Medical History / Comment(s): ECZEMA,HTN-NO LONGER ON MEDS, 5 THYROID NODULES. 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 Past Anesthesia/Blood Transfusion Reactions: No Reported Reaction Additional Past Anesthesia/Blood Transfusion Reaction / Comment(s): "partially paralyzed vocal cord" Past Psychological History: Anxiety, Depression Smoking Status: Former smoker
[2024-10-16 17:29] LABS: Glucose,Whole Blood 219 mg/dL (70-110)
[2024-10-16] MEDS: INSULIN ASPART (NovoLOG) 100 UNIT/ML VIAL SQ SCH (17:33)
[2024-10-16] MEDS: PANTOPRAZOLE 40 MG/10 ML VIAL IVP SCH (17:34)
--- NOTE | 2024-10-16 22:10 | OP ---
OPERATIVE REPORT DATE OF SERVICE : PROCEDURE PERFORMED: Placement of a right IJ triple-lumen catheter. PREOPERATIVE DIAGNOSES: Acute hypoxic respiratory failure and acute cerebrovascular accident. POSTOPERATIVE DIAGNOSES: Acute hypoxic respiratory failure and acute cerebrovascular accident. ANESTHESIA USED: 2 mL of 1% lidocaine. DESCRIPTION OF PROCEDURE: The patient was placed in a Trendelenburg position, the area of the right cervical region was prepared in a sterile fashion. Drapes were applied. Using the posterior approach, the right internal jugular vein was easily cannulated after adequate lidocaine inserted at the posterior aspect of the posterior belly of the sternocleidomastoid. Again, after cannulation of the right internal jugular vein, the guidewire was placed, area around the guidewire was dilated. Then, a triple-lumen catheter was inserted over the guidewire. Good blood flow noted in the 3 different ports of the triple-lumen catheter, procedure was well tolerated, no complications, adequate placement noted on the chest x-ray, and line was secured using 3.0 silk sutures. MMODL / IJN: [id number] /
--- NOTE | 2024-10-16 22:10 | OP ---
OPERATIVE REPORT DATE OF SERVICE : PROCEDURE PERFORMED: Intubation. PREOPERATIVE DIAGNOSIS: Acute hypoxic respiratory failure secondary to cerebrovascular accident. POSTOPERATIVE DIAGNOSIS: Acute hypoxic respiratory failure secondary to cerebrovascular accident. ANESTHESIA USED: The patient received 50 mg of propofol, 4 mg of morphine, and 75 mg of succinylcholine. This was done prior to procedure. DESCRIPTION OF PROCEDURE: The patient was placed in a supine position, a GlideScope was used, medications were given prior to the procedure, a size 4 blade was used, the tongue was elevated, vocal cords were visualized, a size 8.0 endotracheal tube was used and it was inserted through the vocal cords with direct visualization. As the tube was passed the vocal cord, the stylet was removed, cuff was inflated, there was a color change on the Ambu bag, and the tube was connected to mechanical ventilation. Adequate placement noted on the chest x-ray, good breath sounds noted bilaterally. Then, a nasogastric tube was also placed and it was noted to be in proper position after reviewing the chest x-ray. Both procedures were tolerated without any complications. MMODL / IJN: [id number] /
--- NOTE | 2024-10-16 22:13 | PCN ---
PROCEDURE NOTE PROCEDURE PERFORMED: Placement of a right radial arterial line. PREOPERATIVE DIAGNOSES: Acute cerebrovascular accident and acute hypoxic respiratory failure. POSTOPERATIVE DIAGNOSES: Acute cerebrovascular accident and acute hypoxic respiratory failure. ANESTHESIA USED: None deployed. PROCEDURE IN DETAIL: The patient was placed in a supine position. Right wrist was prepared in a sterile fashion. Drapes were applied. The right radial artery was palpated, easily cannulated. Guidewire was placed, the Cook's catheter inserted over the guidewire, guidewire was removed. Good blood flow, good waveform. No complications. Line secured using 3.0 silk sutures. MMODL / IJN: [id number] /
[2024-10-16 23:50] LABS: Glucose,Whole Blood 224 mg/dL (70-110)
[2024-10-17 04:10] LABS: Basophils % (A) 0 %; Eosinophils % (A) 0 %; HCT 47.4 % (34.0-46.0); HGB 15.4 gm/dL (11.4-16.0); Lymphocytes # (A) 0.9 k/uL (1.0-4.8); Lymphocytes % (A) 4 %; MCH 32.3 pg (25.0-35.0); MCHC 32.6 g/dL (31.0-37.0); MCV 99.2 fL (80.0-100.0); Monocytes # (A) 1.4 k/uL (0-1.0); Monocytes % (A) 7 %; Neutrophils # (A) 18.8 k/uL (1.3-7.7); Neutrophils % (A) 86 %; Platelet Count 430 k/uL (150-450); RBC 4.78 m/uL (3.80-5.40); RDW 12.1 % (11.5-15.5)
[2024-10-17 04:29] LABS: African American GFR (CKD) >90 (>60 ml/min/1.73 sqM); Anion Gap 14 mmol/L; Blood Urea Nitrogen 22 mg/dL (7-17); Calcium 9.4 mg/dL (8.4-10.2); Carbon Dioxide 12 mmol/L (22-30); Chloride 121 mmol/L (98-107); Glucose 213 mg/dL (74-99); Magnesium 2.3 mg/dL (1.6-2.3); Non-African American GFR(CKD) 85 (>60 ml/min/1.73 sqM); Potassium 3.9 mmol/L (3.5-5.1); Sodium 147 mmol/L (137-145)
[2024-10-17 05:25] LABS: ABG Base Excess -10.4 mmol/L; ABG HCO3 14 mmol/L (21-25); ABG Oxygen Saturation 98.6 % (94-97); ABG PCO2 29 mmHg (35-45); ABG PH 7.31 (7.35-7.45); ABG PO2 120 mmHg (83-108); ABG TCO2 15 mmol/L (19-24); Allen Test Performed? Yes
[2024-10-17 06:03] LABS: Glucose,Whole Blood 211 mg/dL (70-110)
[2024-10-17] MEDS: POTASSIUM BICARBONATE/CIT AC 20 MEQ TABLET.EFF NG-TUBE SCH (06:13)
--- NOTE | 2024-10-17 06:52 | XR ---
EXAMINATION TYPE: XR chest 1V portable DATE OF EXAM: 10/17/2024 COMPARISON: 10/16/2024 CLINICAL INDICATION: Female, 79 years old with history of Tube placement; TECHNIQUE: Single frontal view of the chest is obtained. FINDINGS: The ET tube is 6.3 cm above the sandi. NG tube within the stomach. There is a central venous cathete r tip in the right atrium. There is mild interstitial opacity in the left lung base which is increased in the interval. There is no pneumothorax. There is no pleural effusion. The right lung is clear. IMPRESSION: 1. ET tube 6.3 cm above the sandi. 2. Mild acute interstitial process in the left lung base, consider acute interstitial pneumonia and s hort-term follow-up is recommended. [facility], Workstation: MARLY 10/17/2024 6:49 AM
[2024-10-17 11:29] LABS: Glucose,Whole Blood 253 mg/dL (70-110)
--- NOTE | 2024-10-17 13:54 | P.PN ---
Subjective Progress Note Date: 10/17/24 I am following up with the patient, and spoke with the patient's daughter over the phone who resides in [place] and she would like she would like withdrawal care. Patient is on IV propofol for 45mcg/kg/min. Today the patient is accompanied with her other daughter Smiley as well as her brother Lalo via phone and they are updated on the patient condition that she had a large stroke and likely she will have deficit but is not brain . The family's wishes is to withdraw care. Objective - Vital Signs Vital signs: Vital Signs Temp 98.8 F 10/17/24 08:00 Pulse 101 H 10/17/24 12:00 Resp 23 10/17/24 12:00 BP 111/72 10/17/24 12:00 Pulse Ox 96 10/17/24 12:00 FiO2 40 10/17/24 12:00 Intake & Output 10/16/24 10/17/24 10/17/24 18:59 06:59 18:59 Intake Total 815.112 764.875 138.931 Output Total 2245 495 335 Balance -1429.888 269.875 -196.069 Weight 59.421 kg 57.7 kg Intake: IV 804 593 78 KVO 150 110 60 Magnesium Sulfate-D5w Pmx 200 1 gm In Dextrose/Water 1 100ml.bag @ 100 mls/hr IVPB Q1H [facility] Rx#: [id number] Mannitol 20% Pmx 74 ml In 74 Saline 1 500ml.bag @ 74 mls/hr IV ONCE ONE Rx#: [id number] Pressure Bag 30 33 18 Sodium Chloride 3%( 350 450 Hypertonic) 500 ml @ 50 mls/hr IV .Q10H [facility] Rx#: [id number] Intake, IV Titration 11.112 171.875 60.931 Amount propofoL 1,000 mg In 11.112 171.875 60.931 Empty Bag 1 bag @ 15 MCG/ KG/MIN 5.348 mls/hr IV . [id number] [facility] Rx#:[id number] Output: Urine 2245 495 335 Other: Voiding Method Indwelling Catheter Indwelling Catheter Indwelling Catheter ABP, PAP, CO, CI - Last Documented Arterial Blood Pressure 117/43 - Exam General: Lying in bed and does not appear in acute distress. Lung: Intubated on a ventilator. Neuro: Very limited. Is on IV Propofol 45mcg/kg/min Is comatose. GCS 3 (E1, VT1, M1). I had to manually open eyes and primary gaze is midline. Pupils are 2mm, round and sluggishly reactive to light. Is breathing over the vent. Motor: No spontaneous movement. Some of the workup during this hospital visit consisted of: Was on 3% and Na currently is 149. CT head and cervical is reported as there is no acute fracture or dislocation evident in the cervical spine. No acute intracranial hemorrhage or midline shift. I Reviewed the CT head and agree there is no acute or subacute ischemic stroke. CTA head: Reported as increased soft tissue density in pericardial and AP window region. Subcorneal soft tissue thickening now up to 1.8 cm, new from prior. Medial left upper lobe nodule currently 2.3 cm versus 2.0 cm on 07/27/2024. Recommend oncology follow-up for appropriate surveillance and to exclude early progression. COPD with moderate emphysema and some 4 points interstitial change. Correlate to exclude fluid overload. Moderate atherosclerotic change at the right carotid bifurcation with a moderate 65% proximal right ICA mild 40% proximal left ICA. Nondominant left vertebral artery with possible moderate to severe stenosis at its origin. CTA neck: Moderate atherosclerotic narrowing proximal V4 segment dominant right vertebral artery. Mild atherosclerotic narrowing throughout the bilateral intracranial ICA. No large vessel intracranial arterial occlusion, significant stenosis or aneurysm changes seen. MRI Brain w/ and w/o: There appears to be acute ischemic changes within the inferior medial cerebellum. Lacunar infarct type acute changes may be within the posterior mid left cerebellum. Chronic appearing periventricular and brainstem deep white matter type ischemic changes. No suspicious changes for metastasis. Lipid panel: TG 188, cholestrol 139, LDL 53 and HDL 47. 2D echo: Ventricular ejection fraction of 30 to 35% with mainly apical hypokinesis with basal sparing. May be related to multivessel coronary artery disease versus Takotsubo cardiomyopathy. Negative bubble study. Repeat CT head: No acute intracranial hemorrhage or midline shift. There is evolving large subacute cerebellar infarct with local mass effect noted. This is causing developing hydrocephalus due to mass effect on the CSF flow and below the fourth ventricle. - Labs CBC & Chem 7: 10/17/24 04:00 10/17/24 08:27 Labs: Abnormal Lab Results - Last 24 Hours (Table) 10/16/24 10/16/2410/17/24 Range/Units 17:28 23:49 04:00 WBC 22.0 H (3.8-10.6) k/uL Hct 47.4 H (34.0-46.0) % Neutrophils # 18.8 H (1.3-7.7) k/uL Lymphocytes # 0.9 L (1.0-4.8) k/uL Monocytes # 1.4 H (0-1.0) k/uL ABG pH (7.35-7.45) ABG pCO2 (35-45) mmHg ABG pO2 (83-108) mmHg ABG HCO3 (21-25) mmol/L ABG Total CO2 (19-24) mmol/L ABG O2 Saturation (94-97) % Sodium (137-145) mmol/L Chloride (98-107) mmol/L Carbon Dioxide (22-30) mmol/L BUN (7-17) mg/dL Glucose (74-99) mg/dL POC Glucose (mg/dL) 219 H 224 H (70-110) mg/dL 10/17/24 10/17/24 10/17/24 Range/Units 04:00 05:20 06:02 WBC (3.8-10.6) k/uL Hct (34.0-46.0) % Neutrophils # (1.3-7.7) k/uL Lymphocytes # (1.0-4.8) k/uL Monocytes # (0-1.0) k/uL ABG pH 7.31 L (7.35-7.45) ABG pCO2 29 L (35-45) mmHg ABG pO2 120 H (83-108) mmHg ABG HCO3 14 L (21-25) mmol/L ABG Total CO2 15 L (19-24) mmol/L ABG O2 Saturation 98.6 H (94-97) % Sodium 147 H (137-145) mmol/L Chloride 121 H (98-107) mmol/L Carbon Dioxide 12 L (22-30) mmol/L BUN 22 H (7-17) mg/dL Glucose 213 H (74-99) mg/dL POC Glucose (mg/dL) 211 H (70-110) mg/dL 10/17/24 10/17/24 Range/Units 08:27 11:28 WBC (3.8-10.6) k/uL Hct (34.0-46.0) % Neutrophils # (1.3-7.7) k/uL Lymphocytes # (1.0-4.8) k/uL Monocytes # (0-1.0) k/uL ABG pH (7.35-7.45) ABG pCO2 (35-45) mmHg ABG pO2 (83-108) mmHg ABG HCO3 (21-25) mmol/L ABG Total CO2 (19-24) mmol/L ABG O2 Saturation (94-97) % Sodium 149 H (137-145) mmol/L Chloride (98-107) mmol/L Carbon Dioxide (22-30) mmol/L BUN (7-17) mg/dL Glucose (74-99) mg/dL POC Glucose (mg/dL) 253 H (70-110) mg/dL Assessment and Plan Assessment: This is a 79-year-old woman with history of lung cancer and is on chemotherapy who presented emergency department because of dizziness, nausea vomiting, diplopia of the left eye. On examination patient had ataxia on the [id number] and had nystagmus looking to the left. Acute ischemic stroke (large inferior medial cerebellum). Seems embolic. Cytoxic edma with mass effect and some hydrocephalus due to above--was started on 3% hypertonic saline yesterday and was given Mannitol once. Encephalopathy due to above that resulted patient to be intubated and on ventilator. Cardiomyopathy (EF 3035%) with apical hypokinesis. May be related to multivessel coronary artery disease versus Takotsubo cardiomyopathy on 2 echo Underlying history of lung cancer and it seems that her lung nodule is larger on this current CT reported ICA stenosis is moderate of 65% proximal and this seems more asymptomatic while left ICA is 40% considered mild History of lung cancer and patient is on chemotherapy Hypertension Hyperlipidemia Diabetes mellitus Plan: Patient started on aspirin 81 mg daily today and was given aspirin 325mg once yesterday. This the patient was not on any antiplatelet. I will avoid dual antiplatelet for now in case she has significant edema and needs intervention. Patient is on Lipitor 40 mg nightly and that sufficient for secondary prophylaxis ContinueAntivert 25 mg 1 tablet 3 times daily scheduled. Consulted PT and OT. Consulted [facility]. Recommend oncology consultation Recommend cardiology consultation. Will defer the rest of the medical management to primary and other specialist For DVT prophylaxis the patient is on Lovenox I spoke with the patient family members and spoke with multiple family members 1 on the phone yesterday that resides in [place] her daughter, her other daughter Smiley who is at bedside as well as her son Lalo via phone and they want to withdraw care. According to the daughter Smiley she stated that her whole family is in agreement of withdrawing care. They are aware that the patient is not brain- but the daughter stated that the patient does not want to be dependent on anybody to take care of her and that was her wishes. Plan discussed with ICU team Time with Patient: Less than 30
[2024-10-17] MEDS: oxyCODONE-APAP 10-325MG 1 EACH TAB PO PRN (14:20)
--- NOTE | 2024-10-17 14:24 | P.PN ---
Subjective Progress Note Date: 10/17/24 Principal diagnosis: Acute cerebellar CVA This is a 79-year-old female admitted on 10/14/2024 she was admitted through the ER when she presented with dizziness, off balance, and generalized weakness. It all started around 3 AM patient felt dizzy and she also had episodes of nausea and vomiting also had double vision over her left eye. And she was generally weak. She felt off balance. Has a history of underlying lung cancer on chemotherapy, CT of the brain on admission showed no intracranial hemorrhage or midline shift, and no evidence of acute or subacute ischemic stroke. MRI of the brain showed acute ischemic change within the inferior medial cerebellum lacunar infarct type acute change may be within the posterior mid left cerebellum. There was also chronic appearing periventricular and brainstem deep white matter ischemic change noted. Patient was seen by neurology on consultation, and over the last 24 hours, her neurological status has deteriorated. Repeat CT of the head showed large subacute cerebellar infarct with mass effect patient was brought to the ICU by the a team this morning, and I was made aware of the patient as soon as she arrived to the ICU. Upon my initial evaluation patient was having Mina-Lora breathing and episodes of apnea she was not responsive to any stimuli, hence went ahead and intubated the patient, placed on mechanical ventilation. Patient was placed on assist-control rate of 20 tidal volume 400 FiO2 100% initially and PEEP of 5. Earlier the patient received mannitol ordered by the neurologist. Her ABG after intubation showed a pO2 of 420 pCO2 40 pH of 7.30. Her WBC count is 20 hemoglobin 14.7 electrolytes are normal, bicarb is 15 BUN is 15 creatinine 0.57. X-ray postintubation showed no evidence of acute cardiopulmonary process and there was adequate placement of all the lines including endotracheal tube, central line, and nasogastric tube Patient was seen today on 10/17/2024, patient remains in the ICU, intubated mechanically ventilated, CODE STATUS was changed by family yesterday to DNR. Patient is on assist-control rate of 20 tidal volume 400 FiO2 40% PEEP of 5 ABG showed a pO2 of 120 pCO2 29 pH of 7.31 her propofol is at 50 mg/kg/min. Sodium today is 147 potassium 3.9 bicarb is 12 BUN is 22 creatinine 0.68, WBC count 22 hemoglobin 15.4 chest x-ray showed left basilar atelectasis. Neurology saw the patient's family today, and the family expressed wishes that they are seriously considering comfort care measures, patient is comatose, GCS of 3, Objective - Vital Signs Vital signs: Vital Signs Temp 98.8 F 10/17/24 08:00 Pulse 101 H 10/17/24 13:30 Resp 21 10/17/24 13:30 BP 122/82 10/17/24 13:30 Pulse Ox 96 10/17/24 13:30 FiO2 40 10/17/24 12:00 Intake & Output 10/16/24 10/17/24 10/17/24 18:59 06:59 18:59 Intake Total 815.112 764.875 164.931 Output Total 2245 495 395 Balance -1429.888 269.875 -230.069 Weight 59.421 kg 57.7 kg Intake: IV 804 593 104 KVO 150 110 80 Magnesium Sulfate-D5w Pmx 200 1 gm In Dextrose/Water 1 100ml.bag @ 100 mls/hr IVPB Q1H [facility] Rx#: [id number] Mannitol 20% Pmx 74 ml In 74 Saline 1 500ml.bag @ 74 mls/hr IV ONCE ONE Rx#: [id number] Pressure Bag 30 33 24 Sodium Chloride 3%( 350 450 Hypertonic) 500 ml @ 50 mls/hr IV .Q10H [facility] Rx#: [id number] Intake, IV Titration 11.112 171.875 60.931 Amount propofoL 1,000 mg In 11.112 171.875 60.931 Empty Bag 1 bag @ 15 MCG/ KG/MIN 5.348 mls/hr IV . [id number] [facility] Rx#:[id number] Output: Urine 2245 495 395 Other: Voiding Method Indwelling Catheter Indwelling Catheter Indwelling Catheter ABP, PAP, CO, CI - Last Documented Arterial Blood Pressure 120/55 - Exam General: Revealed 79-year-old female intubated, mechanically ventilated, sedated, on propofol Skin: Skin is warm and dry and no rashes or lesions are noted. Eye: Pupils are equal, round and reactive to light, extra-ocular movements are intact; there is normal conjunctiva bilaterally. Ears, nose, mouth and throat: There are moist mucous membranes and no oral lesions. Neck: The neck is supple, there is no tenderness or JVD. Cardiovascular: Distant S1-S2, no S3 gallop Respiratory: Clear bilaterally no rhonchi no wheezes Abdomen: Soft nontender no megaly no rebound no guarding soft, non-distended, Musculoskeletal: Could not assess range of motion but no deformities noted Neurological: Very limited, unresponsive patient is comatose, on propofol, breathing over the ventilator, pupils are reactive but sluggishly reactive to light. Patient has a GCS of 3, no spontaneous movement. Psychiatric: Could not assess - Labs CBC & Chem 7: 10/17/24 04:00 10/17/24 08:27 Labs: Abnormal Lab Results - Last 24 Hours (Table) 10/16/24 10/16/24 10/17/24 Range/Units 17:28 23:49 04:00 WBC 22.0 H (3.8-10.6) k/uL Hct 47.4 H (34.0-46.0) % Neutrophils # 18.8 H (1.3-7.7) k/uL Lymphocytes # 0.9 L (1.0-4.8) k/uL Monocytes # 1.4 H (0-1.0) k/uL ABG pH (7.35-7.45) ABG pCO2 (35-45) mmHg ABG pO2 (83-108) mmHg ABG HCO3 (21-25) mmol/L ABG Total CO2 (19-24) mmol/L ABG O2 Saturation (94-97) % Sodium (137-145) mmol/L Chloride (98-107) mmol/L Carbon Dioxide (22-30) mmol/L BUN (7-17) mg/dL Glucose (74-99) mg/dL POC Glucose (mg/dL) 219 H 224 H (70-110) mg/dL 10/17/24 10/17/24 10/17/24 Range/Units 04:00 05:20 06:02 WBC (3.8-10.6) k/uL Hct (34.0-46.0) % Neutrophils # (1.3-7.7) k/uL Lymphocytes # (1.0-4.8) k/uL Monocytes # (0-1.0) k/uL ABG pH 7.31 L (7.35-7.45) ABG pCO2 29 L (35-45) mmHg ABG pO2 120 H (83-108) mmHg ABG HCO3 14 L (21-25) mmol/L ABG Total CO2 15 L (19-24) mmol/L ABG O2 Saturation 98.6 H (94-97) % Sodium 147 H (137-145) mmol/L Chloride 121 H (98-107) mmol/L Carbon Dioxide 12 L (22-30) mmol/L BUN 22 H (7-17) mg/dL Glucose 213 H (74-99) mg/dL POC Glucose (mg/dL) 211 H (70-110) mg/dL 10/17/24 10/17/24 Range/Units 08:27 11:28 WBC (3.8-10.6) k/uL Hct (34.0-46.0) % Neutrophils # (1.3-7.7) k/uL Lymphocytes # (1.0-4.8) k/uL Monocytes # (0-1.0) k/uL ABG pH (7.35-7.45) ABG pCO2 (35-45) mmHg ABG pO2 (83-108) mmHg ABG HCO3 (21-25) mmol/L ABG Total CO2 (19-24) mmol/L ABG O2 Saturation (94-97) % Sodium 149 H (137-145) mmol/L Chloride (98-107) mmol/L Carbon Dioxide (22-30) mmol/L BUN (7-17) mg/dL Glucose (74-99) mg/dL POC Glucose (mg/dL) 253 H (70-110) mg/dL Assessment and Plan Assessment: Impression: Acute hypoxic respiratory failure secondary to acute CVA with Mina-Lora breathing Acute ischemic stroke inferior medial cerebellum/large, seems embolic in nature Vasogenic edema with mass effect and some hydrocephalus Severe LV dysfunction ejection fraction of 30 to 35% History of lung cancer, on chemotherapy no evidence of metastatic disease on CT of the brain or MRI Benign essential hypertension Dyslipidemia Type 2 diabetes Recommendation: Continue ventilatory support Family/daughter updated on her condition Family is considering comfort care measures Patient was intubated upon arrival to ICU Prognosis is extremely poor, patient will have a very poor quality of life if she is to make it through the CVA. GI and DVT prophylaxis addressed nutritional support in the next 24 hours Prognosis is extremely poor Critical care time is over 30-minute Cussed her condition with neurology on the case Time with Patient: Greater than 30
--- NOTE | 2024-10-17 16:09 | P.PN ---
Progress Note - Text Progress Note Date: 10/17/24 Chief Complaint: Very dizzy Is a pleasant 79-year-old patient who follows with Dr. Salgado. 2 years ago. Patient is on Keytruda. 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 She follows with oncologist Dr. Jenaro Gary. About 3 AM she woke up to walk her dogs felt extremely dizzy everything was spinning around. Also vomited twice. Denies any infection symptoms. No ringing in the ears. She felt much worse with moving her head. Also having some double vision. Had not really been able to walk since then because of severe dizziness and presented to the ER. Initial CT scan in the ER unremarkable. No chest pain palpitation. October 15: MRI has confirmed cerebellar stroke. Patient is recliner. Tired. Still has some dizziness. Decreased appetite. PT OT on the case. Spoke to the patient will need to rehab. Getting aspirin Lipitor. Continues to have poor standing balance. Maximum assist. October 16: ICU. Earlier today patient became less conscious. Mina-Lora breathing. Some apnea. Moved to the ICU. Patient had to be intubated. CT scan showed worsening of cerebellar stroke. And mass effect causing more hydrocephalus. Neurology Dr. Ocasio ordered hypertonic saline. Nurse informed me that they spoke to patient's daughter Oriana Donovan who is in [place]. Telephone number [phone]. The daughter stated that patient would not have wanted this and if there is no significant improvement patient will be terminally extubated. Patient is DNR. As per the nurse currently there is no obvious POA. Per the daughter is the next of kin. Patient has an OG tube. On IV propofol October 17: ICU. Patient is one of the daughters and present. FiO2 40 and a PEEP of 5. Patient has apparently 4 daughters and 1 son. The latter is in nursing home. It seems family is coming to an agreement for terminal extubation. Several questions were answered family is at bedside. Nurses try to gather information from all the siblings. On IV propofol. NG tube feeding at 20 cc an hour. Spoke at length with the family at the bedside. Active Medications Aspirin (Aspirin 81 Mg) 81 mg PO DAILY [facility] Last Admin: 10/17/24 08:01 Dose: 81 mg Atorvastatin Calcium (Atorvastatin 40 Mg Tab) 40 mg PO HS [facility] Last Admin: 10/16/24 20:18 Dose: 40 mg Chlorhexidine Gluconate (Chlorhexidine Gluconate 15 Ml Cup) 15 ml MUCOUS MEM BID [facility] Last Admin: 10/17/24 08:02 Dose: 15 ml Dextrose/Water (Dextrose 50% Syringe 50 Ml) 25 ml IVP PER PROTOCOL PRN; Protocol PRN Reason: Hypoglycemia Dextrose/Water (Dextrose 50% Syringe 50 Ml) 50 ml IVP PER PROTOCOL PRN; Protocol PRN Reason: Hypoglycemia Duloxetine HCl (Duloxetine Hcl 30 Mg Capsule.Dr) 30 mg PO DAILY [facility] Last Admin: 10/17/24 08:01 Dose: 30 mg Enoxaparin Sodium (Enoxaparin 40 Mg/0.4 Ml Syringe) 40 mg SQ DAILY [facility] Last Admin: 10/17/24 08:01 Dose: 40 mg Sodium Chloride (Saline 0.9%) 1,000 mls @ 75 mls/hr IV .[id number] [facility] Last Admin: 10/17/24 00:58 Dose: Not Given Clevidipine 25 mg/ IV Solution 50 mls @ 2 mls/hr IV .Q24H [facility]; Protocol Last Admin: 10/17/24 03:55 Dose: Not Given Propofol 1,000 mg/ IV Solution 100 mls @ 5.348 mls/hr IV .[id number] [facility]; Protocol Last Admin: 10/17/24 10:06 Dose: 45 mcg/kg/min, 16.044 mls/hr Insulin Aspart (Insulin Aspart (Novolog) 100 Unit/Ml Vial) 0 unit SQ Q6HR [facility]; Protocol Last Admin: 10/17/24 14:17 Dose: 3 unit Lisinopril (Lisinopril 2.5 Mg Tab) 2.5 mg PO DAILY [facility] Last Admin: 10/17/24 08:01 Dose: 2.5 mg Meclizine HCl (Meclizine 25 Mg Tab) 25 mg PO TID [facility] Stop: 10/21/24 21:59 Last Admin: 10/17/24 08:01 Dose: 25 mg Miscellaneous Information (Potassium Replacement Protocol 1 Each Misc) 1 each MISCELLANE DAILY PRN PRN Reason: Per Protocol Miscellaneous Information (Magnesium Replacement Protocol 1 Each Misc) 1 each MISCELLANE DAILY PRN; Protocol PRN Reason: Per Protocol Morphine Sulfate (Morphine Sulfate Er 30 Mg Tablet) 30 mg PO Q12HR [facility]; Protocol Last Admin: 10/17/24 08:00 Dose: 30 mg Naloxone HCl (Naloxone 0.4 Mg/Ml 1 Ml Vial) 0.2 mg IV Q2M PRN PRN Reason: Opioid Reversal Oxycodone/Acetaminophen (Oxycodone-Apap 10-325mg 1 Each Tab) 1 each PO BID PRN PRN Reason: Pain Last Admin: 10/17/24 14:20 Dose: 1 each Pantoprazole Sodium (Pantoprazole 40 Mg/10 Ml Vial) 40 mg IVP DAILY [facility] Last Admin: 10/17/24 08:00 Dose: 40 mg Prednisone (Prednisone 5 Mg Tab) 5 mg PO DAILY [facility] Last Admin: 10/17/24 08:01 Dose: 5 mg Repaglinide (Repaglinide 1 Mg Tab) 0.5 mg PO AC-TID [facility] Last Admin: 10/17/24 14:17 Dose: Not Given Social history: Patient smoked for 46 years. Three-quarter pack a day. Stopped in 2012. No alcohol. Lives alone Physical examination: VITAL SIGNS: 101, 101, 22, 118 x 72, 96% GENERAL: BMI 19.3, intubated r EYES: Pupils equal. Conjunctiva shilpi l. HEENT: External appearance of nose and ears normal, oral cavity grossly normal. NECK: JVD not raised; masses not palpable. HEART: First and second heart sounds are normal; no edema. LUNGS: Respiratory rate normal; decreased breath sounds. ABDOMEN: Soft, nontender, liver spleen not palpable, no masses palpable. PSYCH: Sedated MUSCULOSKELETAL:No Clubbing/cyanosis;muscles-grossly intact. Loss of subcutaneous fat. Decreased muscle mass. OA NEUROLOGICAL: Patient sedated INVESTIGATIONS, reviewed in the clinical context: October 17: White count 22 hemoglobin 15.4 platelets 430 sodium 147 potassium 3.9 BUN [address] brain without contrast [October 16] evolving large subacute cerebellar infarct with local mass effect. Causing hydrocephalus due to mass effect. October 16: White count 20 hemoglobin 14.7 platelets 419 sodium 134 potassium 3.4 creatinine 0.57 2D echocardiogram: EF 30-35%. Hypokinetic agosto. MRI brain: Acute ischemic change within the inferior medial cerebellum. Lacunar infarct type acute change may be within the posterior and mid left cerebellum. October 15: White count 15.1 hemoglobin 13.4 potassium 3.9 creatinine 0.59 October 14: White count 12.7 hemoglobin 14.9 platelets 462 sodium 137 potassium 3.9 creatinine 0.66 glucose 253 lactic acid 3.7 repeat 1.3 UA: Glucose 4+ Chest x-ray film personally reviewed by me-right diaphragm elevated. Some interstitial prominence Head cervical spine CT: Unremarkable EKG tracing personally reviewed by me-ST segment depression in inferolateral leads. CT angiography head and neck: COPD with emphysema. Interstitial changes. 65% proximal right ICA stenosis. Mild 40% proximal left ICA stenosis. Nondominant left vertebral artery with possible moderate to severe stenosis at its origin. Increased soft tissue density in the pericarinal and AP window region. Other details in the full report Assessment plan: -Acute ischemic stroke, inferior medial cerebellum. Lacunar infarct type acute change may be within the posterior and mid left cerebellum: No improvement Worsening of stroke clinically and radiological on October 16 .-Moved to the ICU.: Causing secondary hydrocephalus. Hypertonic saline-by neurology. Aspirin Lipitor. 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 Being treated with Keytruda. Oncologist Dr. Salvador Gary -Essential hypertension Zestril 2.5 mg a day -Hyperlipidemia Lipitor 20 mg nightly -COPD no prior smoker Diabetes mellitus type 2 Prandin 0.5 mg AC 3 times daily -Chronic pain Continue morphine sulfate 30 mg every 12 and Percocet as needed -DNR -Patient's daughter Oriana Donovan telephone number [phone] lives in [place] is a next of kin. Apparently there is no personal right now with medical POA otherwise. Intubated. Propofol. Prognosis remains very guarded. Patient's children at alternative, and nurses waiting to hear from all of them for possible terminal extubation. Past Medical History Past Medical History: Cancer, Diabetes Mellitus, Hyperlipidemia, Hypertension, Skin Disorder Additional Past Medical History / Comment(s): ECZEMA,HTN-NO LONGER ON MEDS, 5 THYROID NODULES. 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 Past Anesthesia/Blood Transfusion Reactions: No Reported Reaction Additional Past Anesthesia/Blood Transfusion Reaction / Comment(s): "partially paralyzed vocal cord" Past Psychological History: Anxiety, Depression Smoking Status: Former smoker
[2024-10-17 17:17] LABS: Glucose,Whole Blood 196 mg/dL (70-110)
[2024-10-17 17:56] LABS: Glucose,Whole Blood 202 mg/dL (70-110)
[2024-10-17 23:32] LABS: Glucose,Whole Blood 231 mg/dL (70-110)
[2024-10-18 04:10] VITALS: RESP 20
[2024-10-18 04:12] LABS: Basophils % (A) 0 %; Eosinophils % (A) 0 %; HGB 14.5 gm/dL (11.4-16.0); Lymphocytes % (A) 6 %; MCH 32.4 pg (25.0-35.0); MCHC 32.3 g/dL (31.0-37.0); MCV 100.3 fL (80.0-100.0); Mean Platelet Volume 7.7; Monocytes # (A) 1.3 k/uL (0-1.0); Monocytes % (A) 8 %; Neutrophils # (A) 13.9 k/uL (1.3-7.7); Neutrophils % (A) 82 %; Platelet Count 334 k/uL (150-450); RBC 4.49 m/uL (3.80-5.40); RDW 12.4 % (11.5-15.5)
[2024-10-18 04:21] LABS: African American GFR (CKD) 57 (>60 ml/min/1.73 sqM); Anion Gap 8 mmol/L; Blood Urea Nitrogen 41 mg/dL (7-17); Calcium 10.1 mg/dL (8.4-10.2); Carbon Dioxide 18 mmol/L (22-30); Chloride 122 mmol/L (98-107); Glucose 246 mg/dL (74-99); Magnesium 2.6 mg/dL (1.6-2.3); Non-African American GFR(CKD) 50 (>60 ml/min/1.73 sqM); Potassium 3.5 mmol/L (3.5-5.1); Sodium 148 mmol/L (137-145)
[2024-10-18 05:14] LABS: ABG Base Excess -4.8 mmol/L; ABG HCO3 20 mmol/L (21-25); ABG Oxygen Saturation 98.3 % (94-97); ABG PCO2 36 mmHg (35-45); ABG PH 7.35 (7.35-7.45); ABG PO2 102 mmHg (83-108); ABG TCO2 21 mmol/L (19-24); Allen Test Performed? Yes
[2024-10-18] MEDS: POTASSIUM BICARBONATE/CIT AC 20 MEQ TABLET.EFF NG-TUBE SCH (05:24)
[2024-10-18 05:27] LABS: Glucose,Whole Blood 225 mg/dL (70-110)
--- NOTE | 2024-10-18 07:05 | XR ---
EXAMINATION TYPE: XR chest 1V portable DATE OF EXAM: 10/18/2024 COMPARISON: 10/17/2024 CLINICAL INDICATION: Female, 79 years old with history of Tube placement; TECHNIQUE: Single frontal view of the chest is obtained. FINDINGS: ET tube is 5.2 cm above the sandi. There is an NG tube within the stomach. There is a right jugular central venous catheter tip in the SVC/RA junction. The prominent bibasilar interstitial markings are unchanged compared to the prior study. There is no pleural effusion or pneumothorax. The osseous structures are intact. IMPRESSION: 1. ET tube 5.2 cm below the sandi. NG tube within the stomach. 2. No change in the bibasilar interstitial process. [facility], , 10/18/2024 7:03 AM
[2024-10-18 09:11] VITALS: TEMP 99.3
[2024-10-18 12:03] VITALS: BP 118/65; PULSE 93
[2024-10-18] MEDS ORDERED: MORPHINE SULFATE 2 MG/ML SYRINGE IV PRN (12:40)
[2024-10-18] MEDS ORDERED: HYDROmorphone 0.5 MG/0.5 ML SYRINGE IVP PRN (12:40)
[2024-10-18] MEDS ORDERED: ONDANSETRON 4 MG/2 ML VIAL IVP PRN (12:40)
--- NOTE | 2024-10-18 14:05 | P.PN ---
Subjective Progress Note Date: 10/18/24 Principal diagnosis: Acute cerebellar CVA This is a 79-year-old female admitted on 10/14/2024 she was admitted through the ER when she presented with dizziness, off balance, and generalized weakness. It all started around 3 AM patient felt dizzy and she also had episodes of nausea and vomiting also had double vision over her left eye. And she was generally weak. She felt off balance. Has a history of underlying lung cancer on chemotherapy, CT of the brain on admission showed no intracranial hemorrhage or midline shift, and no evidence of acute or subacute ischemic stroke. MRI of the brain showed acute ischemic change within the inferior medial cerebellum lacunar infarct type acute change may be within the posterior mid left cerebellum. There was also chronic appearing periventricular and brainstem deep white matter ischemic change noted. Patient was seen by neurology on consultation, and over the last 24 hours, her neurological status has deteriorated. Repeat CT of the head showed large subacute cerebellar infarct with mass effect patient was brought to the ICU by the a team this morning, and I was made aware of the patient as soon as she arrived to the ICU. Upon my initial evaluation patient was having Mina-Lora breathing and episodes of apnea she was not responsive to any stimuli, hence went ahead and intubated the patient, placed on mechanical ventilation. Patient was placed on assist-control rate of 20 tidal volume 400 FiO2 100% initially and PEEP of 5. Earlier the patient received mannitol ordered by the neurologist. Her ABG after intubation showed a pO2 of 420 pCO2 40 pH of 7.30. Her WBC count is 20 hemoglobin 14.7 electrolytes are normal, bicarb is 15 BUN is 15 creatinine 0.57. X-ray postintubation showed no evidence of acute cardiopulmonary process and there was adequate placement of all the lines including endotracheal tube, central line, and nasogastric tube Patient was seen today on 10/17/2024, patient remains in the ICU, intubated mechanically ventilated, CODE STATUS was changed by family yesterday to DNR. Patient is on assist-control rate of 20 tidal volume 400 FiO2 40% PEEP of 5 ABG showed a pO2 of 120 pCO2 29 pH of 7.31 her propofol is at 50 mg/kg/min. Sodium today is 147 potassium 3.9 bicarb is 12 BUN is 22 creatinine 0.68, WBC count 22 hemoglobin 15.4 chest x-ray showed left basilar atelectasis. Neurology saw the patient's family today, and the family expressed wishes that they are seriously considering comfort care measures, patient is comatose, GCS of 3, Patient was seen today on 10/18/2024, remains intubated mechanically ventilated in the ICU on assist-control rate of 20 tidal volume 400 FiO2 40% and PEEP of 5 ABG showed a pO2 of 102 pCO2 36 pH of 7.35. Remains on propofol at 45 mcg/kg/mi n on tube feeding/enteral feeding via orogastric tube IV fluids at KVO. Family apparently is trying to address the issue of comfort care, and would like to proceed with comfort care sometime later today. Daughter is trying to submit the papers showing that she has the power of attorney at law and she is the legal guardian for this patient. This will be decided upon today and most likely will proceed with comfort care.WBC count is 17 hemoglobin 14.5 sodium is 148 potassium 3.5 chloride 122 bicarb is 18, blood sugar is 246. Chest x-ray reviewed showed minimal bibasilar atelectasis. Objective - Vital Signs Vital signs: Vital Signs Temp 99.3 F 10/18/24 08:00 Pulse 93 10/18/24 12:00 Resp 20 10/18/24 12:00 BP 118/65 10/18/24 12:00 Pulse Ox 95 10/18/24 12:00 FiO2 40 10/18/24 12:00 Intake & Output 10/17/24 10/18/24 10/18/24 18:59 06:59 18:59 Intake Total 316.931 227.931 195.381 Output Total 475 235 185 Balance -158.069 -7.069 10.381 Weight 58 kg Intake: IV 156 156 78 KVO 120 120 60 Pressure Bag 36 36 18 Intake, IV Titration 160.931 71.931 117.381 Amount propofoL 1,000 mg In 160.931 71.931 117.381 Empty Bag 1 bag @ 15 MCG/ KG/MIN 5.348 mls/hr IV . [id number] [facility] Rx#:[id number] Output: Urine 475 235 185 Other: Voiding Method Indwelling Catheter Indwelling Catheter Indwelling Catheter ABP, PAP, CO, CI - Last Documented Arterial Blood Pressure 124/54 - Exam General: Revealed 79-year-old female intubated, mechanically ventilated, sedated, on propofol Skin: Skin is warm and dry and no rashes or lesions are noted. Eye: Pupils are equal, round and reactive to light, extra-ocular movements are intact; there is normal conjunctiva bilaterally. Ears, nose, mouth and throat: There are moist mucous membranes and no oral lesions. Neck: The neck is supple, there is no tenderness or JVD. Cardiovascular: Distant S1-S2, no S3 gallop Respiratory: Clear bilaterally no rhonchi no wheezes Abdomen: Soft nontender no megaly no rebound no guarding soft, non-distended, Musculoskeletal: No deformities Neurological: Could not assess patient is on propofol Psychiatric: Could not assess - Labs CBC & Chem 7: 10/18/24 04:00 10/18/24 04:00 Labs: Abnormal Lab Results - Last 24 Hours (Table) 10/17/24 10/17/24 10/17/24 Range/Units 16:30 17:16 17:54 WBC (3.8-10.6) k/uL MCV (80.0-100.0) fL Neutrophils # (1.3-7.7) k/uL Monocytes # (0-1.0) k/uL ABG HCO3 (21-25) mmol/L ABG O2 Saturation (94-97) % Sodium 149 H (137-145) mmol/L Chloride (98-107) mmol/L Carbon Dioxide (22-30) mmol/L BUN (7-17) mg/dL Creatinine (0.52-1.04) mg/dL Glucose (74-99) mg/dL POC Glucose (mg/dL) 196 H 202 H (70-110) mg/dL Magnesium (1.6-2.3) mg/dL 10/17/24 10/17/24 10/18/24 Range/Units 20:05 23:31 00:05 WBC (3.8-10.6) k/uL MCV (80.0-100.0) fL Neutrophils # (1.3-7.7) k/uL Monocytes # (0-1.0) k/uL ABG HCO3 (21-25) mmol/L ABG O2 Saturation (94-97) % Sodium 147 H 148 H (137-145) mmol/L Chloride (98-107) mmol/L Carbon Dioxide (22-30) mmol/L BUN (7-17) mg/dL Creatinine (0.52-1.04) mg/dL Glucose (74-99) mg/dL POC Glucose (mg/dL) 231 H (70-110) mg/dL Magnesium (1.6-2.3) mg/dL 10/18/24 10/18/24 10/18/24 Range/Units 04:00 04:00 05:08 WBC 17.0 H (3.8-10.6) k/uL MCV 100.3 H (80.0-100.0) fL Neutrophils # 13.9 H (1.3-7.7) k/uL Monocytes # 1.3 H (0-1.0) k/uL ABG HCO3 20 L (21-25) mmol/L ABG O2 Saturation 98.3 H (94-97) % Sodium 148 H (137-145) mmol/L Chloride 122 H (98-107) mmol/L Carbon Dioxide 18 L (22-30) mmol/L BUN 41 H (7-17) mg/dL Creatinine 1.08 H (0.52-1.04) mg/dL Glucose 246 H (74-99) mg/dL POC Glucose (mg/dL) (70-110) mg/dL Magnesium 2.6 H (1.6-2.3) mg/dL 10/18/24 Range/Units 05:26 WBC (3.8-10.6) k/uL MCV (80.0-100.0) fL Neutrophils # (1.3-7.7) k/uL Monocytes # (0-1.0) k/uL ABG HCO3 (21-25) mmol/L ABG O2 Saturation (94-97) % Sodium (137-145) mmol/L Chloride (98-107) mmol/L Carbon Dioxide (22-30) mmol/L BUN (7-17) mg/dL Creatinine (0.52-1.04) mg/dL Glucose (74-99) mg/dL POC Glucose (mg/dL) 225 H (70-110) mg/dL Magnesium (1.6-2.3) mg/dL Assessment and Plan Assessment: Impression: Acute hypoxic respiratory failure secondary to acute CVA with Mina-Lora breathing Acute ischemic stroke inferior medial cerebellum/large, seems embolic in nature Vasogenic edema with mass effect and some hydrocephalus Severe LV dysfunction ejection fraction of 30 to 35% History of lung cancer, on chemotherapy no evidence of metastatic disease on CT of the brain or MRI Benign essential hypertension Dyslipidemia Type 2 diabetes Recommendation: Continue ventilatory support Family is considering comfort care measures Prognosis remains extremely poor considering the extent of her CVA GI and DVT prophylaxis addressed nutritional support in the next 24 hours Nutritional support/enteral feeding Patient is definitely critically ill. And prognosis is poor May proceed to comfort care measures sometime later today Critical care time is over 30 minutes Time with Patient: Greater than 30
[2024-10-18] MEDS: MORPHINE SULFATE 4 MG/ML SYRINGE IV PRN (14:16)
[2024-10-18] MEDS: LORazepam 2 MG/ML INJ IV PRN (14:17)
[2024-10-18] MEDS: SCOPOLAMINE 1 MG/72 HR PATCH TRANSDERM SCH (14:20)
[2024-10-18] MEDS: HYDROmorphone 1 MG/ML 1 ML SYRINGE IVP PRN (14:21)
[2024-10-18] MEDS: MORPHINE SULFATE (100 MG/2 ML) 100 MG in SODIUM CHLORIDE 0.9% 100 ML IV SCH (14:37)
--- NOTE | 2024-10-18 17:53 | P.PN ---
Progress Note - Text Progress Note Date: 10/18/24 Chief Complaint: Very dizzy Is a pleasant 79-year-old patient who follows with Dr. Salgado. 2 years ago. Patient is on Keytruda. 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 She follows with oncologist Dr. Jenaro Gary. About 3 AM she woke up to walk her dogs felt extremely dizzy everything was spinning around. Also vomited twice. Denies any infection symptoms. No ringing in the ears. She felt much worse with moving her head. Also having some double vision. Had not really been able to walk since then because of severe dizziness and presented to the ER. Initial CT scan in the ER unremarkable. No chest pain palpitation. October 15: MRI has confirmed cerebellar stroke. Patient is recliner. Tired. Still has some dizziness. Decreased appetite. PT OT on the case. Spoke to the patient will need to rehab. Getting aspirin Lipitor. Continues to have poor standing balance. Maximum assist. October 16: ICU. Earlier today patient became less conscious. Mina-Lora breathing. Some apnea. Moved to the ICU. Patient had to be intubated. CT scan showed worsening of cerebellar stroke. And mass effect causing more hydrocephalus. Neurology Dr. Ocasio ordered hypertonic saline. Nurse informed me that they spoke to patient's daughter Oriana Donovan who is in [place]. Telephone number [phone]. The daughter stated that patient would not have wanted this and if there is no significant improvement patient will be terminally extubated. Patient is DNR. As per the nurse currently there is no obvious POA. Per the daughter is the next of kin. Patient has an OG tube. On IV propofol October 17: ICU. Patient is one of the daughters and present. FiO2 40 and a PEEP of 5. Patient has apparently 4 daughters and 1 son. The latter is in longterm. It seems family is coming to an agreement for terminal extubation. Several questions were answered family is at bedside. Nurses try to gather information from all the siblings. On IV propofol. NG tube feeding at 20 cc an hour. Spoke at length with the family at the bedside. October 17: ICU. Saw the patient this afternoon. On the ventilator FiO2 40 PEEP of 5. Patient has negative brainstem reflex including no pupils reactive no corneal reflex doll's eye movement. Remains sinus rhythm. Decreased urine output. Waiting for 1 family member to bring in the POA papers. Later the nurse called me the papers were brought in. And patient was doubly extubated to morphine. With comfort measures. Active Medications Dextrose/Water (Dextrose 50% Syringe 50 Ml) 25 ml IVP PER PROTOCOL PRN; Protocol PRN Reason: Hypoglycemia Dextrose/Water (Dextrose 50% Syringe 50 Ml) 50 ml IVP PER PROTOCOL PRN; Protocol PRN Reason: Hypoglycemia Hydromorphone HCl (Hydromorphone 0.5 Mg/0.5 Ml Syringe) 0.5 mg IVP Q2HR PRN PRN Reason: Moderate Pain (Scale 4 to 6) Hydromorphone HCl (Hydromorphone 1 Mg/Ml 1 Ml Syringe) 1 mg IVP Q2HR PRN PRN Reason: Moderate Pain (Scale 4 to 6) Last Admin: 10/18/24 14:21 Dose: 1 mg Morphine Sulfate 100 mg/ (Sodium Chloride) 102 mls @ 1.02 mls/hr IV .Q24H FREDY; Protocol Last Admin: 10/18/24 17:22 Dose: 35 mg/hr, 35.7 mls/hr Lorazepam (Lorazepam 2 Mg/Ml Inj) 1 mg IV Q6HR PRN PRN Reason: Anxiety Last Admin: 10/18/24 14:17 Dose: 1 mg Morphine Sulfate (Morphine Sulfate 2 Mg/Ml Syringe) 2 mg IV Q15M PRN PRN Reason: Breakthrough Pain Morphine Sulfate (Morphine Sulfate 4 Mg/Ml Syringe) 4 mg IV Q15M PRN PRN Reason: Breakthrough Pain Last Admin: 10/18/24 14:31 Dose: 4 mg Naloxone HCl (Naloxone 0.4 Mg/Ml 1 Ml Vial) 0.2 mg IV Q2M PRN PRN Reason: Opioid Reversal Ondansetron HCl (Ondansetron 4 Mg/2 Ml Vial) 4 mg IVP Q8HR PRN PRN Reason: Nausea/emesis Scopolamine (Scopolamine 1 Mg/72 Hr Patch) 1 patch TRANSDERM Q72H FREDY Last Admin: 10/18/24 14:20 Dose: 1 patch Social history: Patient smoked for 46 years. Three-quarter pack a day. Stopped in 2012. No alcohol. Lives alone Physical examination: VITAL SIGNS: Afebrile, 93, 20, 117 x 69, 95% on the vent GENERAL: BMI 19.3, intubated r EYES: Pupils equal. Conjunctiva shilpi l. HEENT: External appearance of nose and ears normal, oral cavity grossly normal. NECK: JVD not raised; masses not palpable. HEART: First and second heart sounds are normal; no edema. LUNGS: Respiratory rate normal; decreased breath sounds. ABDOMEN: Soft, nontender, liver spleen not palpable, no masses palpable. PSYCH: Sedated MUSCULOSKELETAL:No Clubbing/cyanosis;muscles-grossly intact. Loss of subcutaneous fat. Decreased muscle mass. OA NEUROLOGICAL: Pupils not reactive to light. Negative corneal reflex. Doll's eye movement not present. No response to pain. No spontaneous movement. INVESTIGATIONS, reviewed in the clinical context: October 18: White count 17 hemoglobin 14.5 platelets 334 potassium four 3.5 creatinine 1.08 October 17: White count 22 hemoglobin 15.4 platelets 430 sodium 147 potassium 3.9 BUN [address] brain without contrast [October 16] evolving large subacute cerebellar infarct with local mass effect. Causing hydrocephalus due to mass effect. October 16: White count 20 hemoglobin 14.7 platelets 419 sodium 134 potassium 3.4 creatinine 0.57 2D echocardiogram: EF 30-35%. Hypokinetic agosto. MRI brain: Acute ischemic change within the inferior medial cerebellum. Lacunar infarct type acute change may be within the posterior and mid left cerebellum. October 15: White count 15.1 hemoglobin 13.4 potassium 3.9 creatinine 0.59 October 14: White count 12.7 hemoglobin 14.9 platelets 462 sodium 137 potassium 3.9 creatinine 0.66 glucose 253 lactic acid 3.7 repeat 1.3 UA: Glucose 4+ Chest x-ray film personally reviewed by me-right diaphragm elevated. Some interstitial prominence Head cervical spine CT: Unremarkable EKG tracing personally reviewed by me-ST segment depression in inferolateral leads. CT angiography head and neck: COPD with emphysema. Interstitial changes. 65% proximal right ICA stenosis. Mild 40% proximal left ICA stenosis. Nondominant left vertebral artery with possible moderate to severe stenosis at its origin. Increased soft tissue density in the pericarinal and AP window region. Other details in the full report Assessment plan: -Acute ischemic stroke, inferior medial cerebellum. Lacunar infarct type acute change may be within the posterior and mid left cerebellum: No improvement Worsening of stroke clinically and radiological on October 16 .-Moved to the ICU.: Causing secondary hydrocephalus. Hypertonic saline-by neurology. Aspirin Lipitor. 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 Being treated with Keytruda. Oncologist Dr. Salvador Gary -Essential hypertension Zestril 2.5 mg a day -Hyperlipidemia Lipitor 20 mg nightly -COPD no prior smoker Diabetes mellitus type 2 Prandin 0.5 mg AC 3 times daily -Chronic pain Continue morphine sulfate 30 mg every 12 and Percocet as needed -DNR/comfort measures -Patient's daughter Oriana Donovan telephone number [phone] lives in [place] is a next of kin. This afternoon a family member brought in the papers for POA. Not one of the children. Later this afternoon patient was still terminally extubated to morphine for comfort measures. Past Medical History Past Medical History: Cancer, Diabetes Mellitus, Hyperlipidemia, Hypertension, Skin Disorder Additional Past Medical History / Comment(s): ECZEMA,HTN-NO LONGER ON MEDS, 5 THYROID NODULES. 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 Past Anesthesia/Blood Transfusion Reactions: No Reported Reaction Additional Past Anesthesia/Blood Transfusion Reaction / Comment(s): "partially paralyzed vocal cord" Past Psychological History: Anxiety, Depression Smoking Status: Former smoker
[2024-10-18] MEDS ORDERED: MORPHINE SULFATE IV SCH (18:00)
[2024-10-18] MEDS ORDERED: SODIUM CHLORIDE 0.9% IV SCH (18:00)
--- NOTE | 2024-10-19 20:57 | P.DS ---
Providers Date of admission: 10/14/24 18:24 Expected date of discharge: 10/18/24 (Patient ) Attending physician: Paul Flores Consults: 10/14/24 07:46 Consult Physician Urgent Consulting Provider: Everett Johnson Consult Reason/Comments: acute vertigo Do you want consulting provider notified?: Yes 10/16/24 08:15 Consult Physician Stat Consulting Provider: Giuliano Taylor Consult Reason/Comments: icu management Do you want consulting provider notified?: Already Contacted Primary care physician: [facility] Course: Chief Complaint: Very dizzy Is a pleasant 79-year-old patient who follows with Dr. Salgado. 2 years ago. Patient is on Keytruda. 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 She follows with oncologist Dr. Jenaro Gary. About 3 AM she woke up to walk her dogs felt extremely dizzy everything was spinning around. Also vomited twice. Denies any infection symptoms. No ringing in the ears. She felt much worse with moving her head. Also having some double vision. Had not really been able to walk since then because of severe dizziness and presented to the ER. Initial CT scan in the ER unremarkable. No chest pain palpitation. October 15: MRI has confirmed cerebellar stroke. Patient is recliner. Tired. Still has some dizziness. Decreased appetite. PT OT on the case. Spoke to the patient will need to rehab. Getting aspirin Lipitor. Continues to have poor standing balance. Maximum assist. October 16: ICU. Earlier today patient became less conscious. Mina-Lora breathing. Some apnea. Moved to the ICU. Patient had to be intubated. CT scan showed worsening of cerebellar stroke. And mass effect causing more hydrocephalus. Neurology Dr. Ocasio ordered hypertonic saline. Nurse informed me that they spoke to patient's daughter Oriana Donovan who is in [place]. Telephone number [phone]. The daughter stated that patient would not have wanted this and if there is no significant improvement patient will be terminall y extubated. Patient is DNR. As per the nurse currently there is no obvious POA. Per the daughter is the next of kin. Patient has an OG tube. On IV propofol October 17: ICU. Patient is one of the daughters and present. FiO2 40 and a PEEP of 5. Patient has apparently 4 daughters and 1 son. The latter is in intermediate. It seems family is coming to an agreement for terminal extubation. Several questions were answered family is at bedside. Nurses try to gather information from all the siblings. On IV propofol. NG tube feeding at 20 cc an hour. Spoke at length with the family at the bedside. October 18: ICU. Saw the patient this afternoon. On the ventilator FiO2 40 PEEP of 5. Patient has negative brainstem reflex including no pupils reactive no corneal reflex doll's eye movement. Remains sinus rhythm. Decreased urine output. Waiting for 1 family member to bring in the POA papers. Later the nurse called me the papers were brought in. And patient was doubly extubated to morphine. With comfort measures. Later in the night patient INVESTIGATIONS, reviewed in the clinical context: October 18: White count 17 hemoglobin 14.5 platelets 334 potassium four 3.5 creatinine 1.08 October 17: White count 22 hemoglobin 15.4 platelets 430 sodium 147 potassium 3.9 BUN [address] brain without contrast [October 16] evolving large subacute cerebellar infarct with local mass effect. Causing hydrocephalus due to mass effect. October 16: White count 20 hemoglobin 14.7 platelets 419 sodium 134 potassium 3.4 creatinine 0.57 2D echocardiogram: EF 30-35%. Hypokinetic agosto. MRI brain: Acute ischemic change within the inferior medial cerebellum. Lacunar infarct type acute change may be within the posterior and mid left cerebellum. October 15: White count 15.1 hemoglobin 13.4 potassium 3.9 creatinine 0.59 October 14: White count 12.7 hemoglobin 14.9 platelets 462 sodium 137 potassium 3.9 creatinine 0.66 glucose 253 lactic acid 3.7 repeat 1.3 UA: Glucose 4+ Chest x-ray film personally reviewed by me-right diaphragm elevated. Some interstitial prominence Head cervical spine CT: Unremarkable EKG tracing personally reviewed by me-ST segment depression in inferolateral leads. CT angiography head and neck: COPD with emphysema. Interstitial changes. 65% proximal right ICA stenosis. Mild 40% proximal left ICA stenosis. Nondominant left vertebral artery with possible moderate to severe stenosis at its origin. Increased soft tissue density in the pericarinal and AP window region. Other details in the full report Cause of : Cerebellar stroke Assessment plan: -Acute ischemic stroke, inferior medial cerebellum. Lacunar infarct type acute change may be within the posterior and mid left cerebellum: No improvement Worsening of stroke clinically and radiological on October 16 .-Moved to the ICU.: Causing secondary hydrocephalus. Hypertonic saline-by neurology. Aspirin Lipitor. 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 Being treated with Keytruda. Oncologist Dr. Salvador Gary -Essential hypertension Zestril 2.5 mg a day -Hyperlipidemia Lipitor 20 mg nightly -COPD no prior smoker Diabetes mellitus type 2 Prandin 0.5 mg AC 3 times daily -Chronic pain Continue morphine sulfate 30 mg every 12 and Percocet as needed -DNR/comfort measures -Patient's daughter Oriana Donovan telephone number [phone] lives in [place] is a next of kin. This afternoon a family member brought in the papers for POA. Not one of the children. Disposition: Patient Past Medical History Past Medical History: Cancer, Diabetes Mellitus, Hyperlipidemia, Hypertension, Skin Disorder Additional Past Medical History / Comment(s): ECZEMA,HTN-NO LONGER ON MEDS, 5 THYROID NODULES. 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 Past Anesthesia/Blood Transfusion Reactions: No Reported Reaction Additional Past Anesthesia/Blood Transfusion Reaction / Comment(s): "partially paralyzed vocal cord" Past Psychological History: Anxiety, Depression Smoking Status: Former smoker Plan - Discharge Summary Discharge Rx Participant: No New Discharge Prescriptions: No Action oxyCODONE HCL/ACETAMINOPHEN [Percocet 10-325 mg] 1 tab PO BID PRN PRN Reason: Pain Morphine Sulfate [Morphine Sulfate ER] 30 mg PO Q12H Atorvastatin [Lipitor] 20 mg PO HS lisinopriL [Zestril] 2.5 mg PO DAILY Repaglinide [Prandin] 0.5 mg PO AC-TID predniSONE 5 mg PO DAILY DULoxetine HCL [Cymbalta] 30 mg PO DAILY Discharge Medication List Morphine Sulfate [Morphine Sulfate ER] 30 mg PO Q12H 09/15/21 [History] oxyCODONE HCL/ACETAMINOPHEN [Percocet 10-325 mg] 1 tab PO BID PRN 09/15/21 [History] Atorvastatin [Lipitor] 20 mg PO HS 11/29/21 [History] DULoxetine HCL [Cymbalta] 30 mg PO DAILY 10/14/24 [History] Repaglinide [Prandin] 0.5 mg PO AC-TID 10/14/24 [History] lisinopriL [Zestril] 2.5 mg PO DAILY 10/14/24 [History] predniSONE 5 mg PO DAILY 10/14/24 [History] Follow up Appointment(s)/Referral(s): Jermaine Salgado DO [Primary Care Provider] - 1-2 days Discharge Disposition: - Preliminary Cause of Preliminary Cause of : Cerebellar stroke
== END 2024-10-18 21:44 | disposition expired | DRG 64 ==
LOC: EC 04:39 → 3SCARD 07:46 → OBSVTOIN 18:24 → 2SICU 10-16 08:36 → 4SSUR 10-18 16:46
PROVIDERS: ADMIT Hospitalist; ATTEND Hospitalist
PROC: 5A1945Z Respiratory Ventilation, 24-96 Consecutive Hours (ICD-10-PCS; principal; 2024-10-16)
PROC: 0BH18EZ Insertion of Endotracheal Airway into Trachea, Via Natural or Artificial Opening Endoscopic (ICD-10-PCS; principal; 2024-10-16)
PROC: 02HV33Z Insertion of Infusion Device into Superior Vena Cava, Percutaneous Approach (ICD-10-PCS; 2024-10-16)
PROC: 03HY32Z Insertion of Monitoring Device into Upper Artery, Percutaneous Approach (ICD-10-PCS; 2024-10-16)
PROC: 4A133B1 Monitoring of Arterial Pressure, Peripheral, Percutaneous Approach (ICD-10-PCS; 2024-10-16)
PROC: 4A133J1 Monitoring of Arterial Pulse, Peripheral, Percutaneous Approach (ICD-10-PCS; 2024-10-16)
PROC: 3E0G76Z Introduction of Nutritional Substance into Upper GI, Via Natural or Artificial Opening (ICD-10-PCS; 2024-10-17)
DX: I63.543 Cerebral infarction due to unspecified occlusion or stenosis of bilateral cerebellar arteries (principal); G93.6 Cerebral edema; J96.01 Acute respiratory failure with hypoxia; G93.49 Other encephalopathy; I42.9 Cardiomyopathy, unspecified; I51.81 Takotsubo syndrome; C34.92 Malignant neoplasm of unspecified part of left bronchus or lung; G91.4 Hydrocephalus in diseases classified elsewhere; Z66 Do not resuscitate; Z51.5 Encounter for palliative care; I63.81 Other cerebral infarction due to occlusion or stenosis of small artery; E11.51 Type 2 diabetes mellitus with diabetic peripheral angiopathy without gangrene; J43.9 Emphysema, unspecified; I65.23 Occlusion and stenosis of bilateral carotid arteries; I10 Essential (primary) hypertension; R27.0 Ataxia, unspecified; H55.00 Unspecified nystagmus; I51.89 Other ill-defined heart diseases; E78.5 Hyperlipidemia, unspecified; G89.29 Other chronic pain; Z79.899 Other long term (current) drug therapy; Z87.820 Personal history of traumatic brain injury; Z87.891 Personal history of nicotine dependence; Z87.19 Personal history of other diseases of the digestive system; Z82.49 Family history of ischemic heart disease and other diseases of the circulatory system
CPT/HCPCS: 36415; 70450; 70496; 70498; 70553; 71045; 72125; 80048; 80053; 80061; 81003; 82805; 83605; 83735; 84132; 84295; 84484; 85025; 85610; 85730; 93005; 93306; 94002; 94003; 96361; 96372; 96374; 96375; 99285